=== PATIENT | male | born 1990 | race Caucasian/White ===

== ENCOUNTER 2024-12-20 09:54 | Inpatient (IN) | payer BC, SELFPAY ==
[2024-12-20] VITALS (35 sets, daily range): BP systolic 105–201; BP diastolic 53–127; PULSE 58–121; RESP 16–99; TEMP 36.1–37.2; O2SAT 93–100; BMI 34.0
--- NOTE | 2024-12-20 | XR_ITS ---
Ultrasound-guided needle placement right internal jugular vein Permanent tunneled dialysis catheter insertion, percutaneous Fluoroscopy AP chest, portable, single view. Date and time of procedure: December 20, 2024 1517 hours INDICATIONS: Renal failure, need for stat and long-term dialysis Informed consent provided Technique: A timeout was completed verifying correct patient, procedure, site, positioning, and special equipment if applicable. The patient was placed in a dependent position appropriate for dialysis catheter placement based on the vein to be cannulated. The patient'sright neck was prepped and draped in sterile fashion. Maximum Sterile Barrier Technique used including cap, mask, sterile gown, sterile gloves, and sterile full body drape. If ultrasound technique used: sterile gel and sterile probe covers. Hand Hygiene performed using proper scrub, soap and water, or alcohol-based hand rub. 1% lidocaine was used to anesthetize the surrounding skin area The [employer] portable ultrasound apparatus to confirm patency of the right internal jugular vein Utilizing ultrasonographic guidance successful 21-gauge needle puncture into the right internal jugular vein. Ultrasound images were recorded and stored. Vessel micropuncture was performed with 21-gauge needle. 0.18 wire guide is introduced into the vein. 0.18 wire is introduced into the vena cava under fluoroscopy. Subcutaneous tunnel formed in the upper chest. Permanent tunneled dialysis catheter placed in the subcutaneous tunnel. Dilators were introduced over the J-wire guide. Tunneled dialysis catheter is introduced through a dilator with venous sheath into the superior vena cava under fluoroscopic guidance. The catheter is sutured in place to the skin and a sterile dressing applied. Perfusion to the extremity distal to the point of catheter insertion is checked and found to be adequate Attending radiologist was present for the entire procedure Estimated blood loss2 cc. The patient tolerated the procedure well and there were no complications Impression: Successful ultrasound-guided needle placement right internal jugular vein Successful permanent tunneled dialysis catheter insertion, percutaneous Fluoroscopy 0.1 minute radiation dose 1.63 milligray 1 spot fluoroscopic chest film. AP chest performed at completion procedure demonstrates satisfactory position dialysis catheter. May use dialysis catheter.
--- NOTE | 2024-12-20 10:05 | XR_ITS ---
Examination: AP chest single view Technique one AP portable semiupright chest single view Date and time: December 20, 2024 1048 hours INDICATIONS: Stroke alert today with chest pain FINDINGS: No cardiac enlargement taking into account AP projection No aspiration pneumonia. No pulmonary edema. Osseous structures are intact IMPRESSION: No aspiration pneumonia
--- NOTE | 2024-12-20 10:05 | EKG_ITS ---
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
--- NOTE | 2024-12-20 10:05 | XR_ITS ---
Examination: CT brain head without contrast. 2-D sagittal coronal reconstructions Date and time of exam:December 20, 2024, 10:21 AM INDICATIONS: Stroke alert, onset focal neurologic deficit this morning including blurred vision CTDI: vol (mGy):58.8 DLP: (mGycm):1197 Technique: Multiple CT axial sections of the brain have been obtained, 5 mm slice thickness. Contrast has not been administered. 2-D sagittal, coronal reconstructions have been obtained Low dose protocols were performed. One or more of the following dose reduction techniques were used; automated exposure control, adjustment of the mA and/or KV according to patient size, use of iterative reconstruction technique. Findings: No significant ventricular enlargement. Intra-axial or extra-axial hemorrhage density is not seen. No mass effect or midline shift Basal cisterns are not remarkable. Fourth ventricle is midline. Cranial vault intact. Impression: Negative for acute hemorrhage, mass effect or midline shift
--- NOTE | 2024-12-20 10:05 | XR_ITS ---
Examination: CTA carotids with intravenous contrast CTA brain, head with intravenous contrast. 2-D sagittal, coronal reconstructions. 3-D reconstructions. Exam date and time: December 20, 2024, 10:25 AM INDICATIONS: Stroke alert today, onset focal neurologic deficit CTDI: vol (mGy) 98 DLP: (mGycm) 540 Technique: Multiple CTA axial brain, head carotid images post intravenous contrast injection 75 cc, [id number]. 2-D sagittal, coronal reconstructions. 3-D reconstructions, 3-D post processing including vascular maximum intensity projection images. Low dose protocols were performed. One or more of the following dose reduction techniques were used; automated exposure control, adjustment of the mA and/or KV according to patient size, use of iterative reconstruction technique. Findings: No significant common carotid carotid bifurcation or internal carotid artery stenoses Codominant vertebral arteries in the neck with no critical stenoses Intracranial vertebral arteries basilar artery and posterior cerebral branches fill with no large vessel occlusions Juxtasellar internal carotid arteries are intact M1 segments middle cerebral arteries middle cerebral artery trifurcation vessels anterior cerebral arteries fill with no large vessel occlusions IMPRESSION: No significant neck arterial stenoses No cerebral large vessel arterial occlusions
--- NOTE | 2024-12-20 10:07 | PD.EDNEURO ---
Neuro Symptoms Deficit-RME/HPI General Chief Complaint: Neuro Symptoms/Deficit Stated Complaint: BLURRED VISION, NAUSEA, CLAMMY, BLOOD PRESSURE Time Seen by Provider: 12/20/24 10:06 Arrival date/time: 12/20/24 09:54 Limitations: no limitations RME / HPI RME / HPI Narrative: 34 year old male with history of hypertension on Lisinopril presents to the ED for evaluation of elevated blood pressure, headache, feeling dizzy, clammy, and changes in vision today. Reportedly the change in vision began intermittently 2 weeks ago and described as not being able to focus . This morning stated he woke up at his usual state of health and drove himself to work. However, states at about 07:00 AM today, noted changes to his vision with associated headache, dizziness and feeling clammy which is new for him. States he took his blood pressure during that time that was 200s systolic. States he took Aleve and Ibuprofen this morning for the headache. Does not recall if he took his Lisinopril. While in the ED, denies feeling dizzy. No associated weakness, changes in speech, changes in gait, or unilateral weakness. Blood sugar in the ED is 122, blood pressure 201/127 left arm, 194/120 right arm. Related Data Home Medications ?Medication ?Instructions ?Recorded ?Confirmed albuterol sulfate 90 mcg/actuation 2 inh inhalation Q4H PRN shortness 12/20/24 12/20/24 aerosol inhaler of breath or wheezing prednisolone acetate 1 % eye 1 drp ophthalmic (eye) QID 12/20/24 12/20/24 drops,suspension Previous Rx's ?Medication ?Instructions ?Recorded aspirin 81 mg capsule 81 mg PO QDAY 30 days #30 caps 12/24/24 atorvastatin 20 mg tablet 40 mg (2 x 20 mg) PO HS 30 days 12/24/24 #60 tabs carvedilol 3.125 mg tablet 6.25 mg (2 x 3.125 mg) PO BIDWM 30 12/24/24 days #60 tabs clopidogrel 75 mg tablet 75 mg PO QDAY #30 tabs 12/24/24 nifedipine 60 mg tablet,extended 60 mg PO QDAY #30 tabs 12/25/24 release 24 hr valsartan 80 mg tablet 80 mg PO QDAY #30 tabs 12/25/24 Allergies Allergy/AdvReac Type Severity Reaction Status Date / Time Penicillins Allergy Severe Difficulty Verified 12/20/24 19:52 Breathing Review of Systems Review of Systems Systems Reviewed: All systems reviewed, normal except as documented Past Medical History Social History SMOKING STATUS: Never smoker ED Exam General Limitations: Present no limitations General appearance: Present alert and in no apparent distress Head Head exam: Present atraumatic, normocephalic and normal inspection Eye Eye exam: Present normal appearance, PERRL and EOMI ENT ENT exam: Present normal exam, normal oropharynx and mucous membranes moist Neck Neck exam: Present normal inspection, full ROM and trachea midline Chest Chest inspection: Present normal inspection and symmetric chest wall rise Respiratory Respiratory exam: Present normal lung sounds bilaterally; Absent respiratory distress, wheezes or stridor Cardiovascular Cardiovascular exam: Present normal rhythm, tachycardia and normal heart sounds Abdominal Exam Abdominal exam: Present soft; Absent distention, tenderness, guarding or rebound Extremities Exam Extremities exam: Present normal inspection and full ROM Back Exam Back exam: Present normal inspection and full ROM Neurological Exam Neurological exam: Present alert, oriented X3, normal gait and motor sensory deficit Expanded Neurological Exam Patient oriented to: Present person, place and time Speech: Present fluid speech Cerebellar function: Present normal gait Motor strength - LUE: 5/5 Motor strength - RUE: 5/5 Motor strength - LLE: 5/5 Motor strength - RLE: 5/5 Psychiatric Psychiatric exam: Present normal affect and normal mood Skin Skin exam: Present warm, dry, intact and normal color Course Course Course Narrative: Patient is a 34-year-old male is in the emergency department concerns for blurry vision, and last visual smith that started approximately 7:00 in the morning today. Vital signs and exam as listed. Stroke alert initiated given patient with difficulty with his vision that has been coming and going and worsening acutely today. Patient also feeling lightheaded. Patient taken to CT scan he is hemodynamically stable not in distress. 10:01 Patient evaluated in old triage. 10:07 Stroke alert activated. 10:40 I spoke with teleneurologist. No tenecteplase, believe that this is likely related to hypertensive emergency versus press syndrome. Recommends treating blood pressure when greater than 180, and admission for MRI. Of note patient also mentioned that he recently saw an attorney law clerk that diagnosed him with macular edema. 12:[address] Joe. Left a voicemail. 12:[address] with IR Dr. Bowen, reports he would be able to insert vascath today for emergent dialysis. Quality Measures Suspected type of Stroke: Acute Ischemic Tenecteplase given: > 60 min of arrival stroke Orders Category Date Time Status Admit to Inpatient Status Routine Admission 12/20/24 14:41 Active Patient Condition Routine Admission 12/20/24 14:41 Ordered Bedside Blood Glucose NOW Care 12/20/24 10:05 Completed Staffing Program Manager NOW Care 12/20/24 10:05 Completed Continuous Pulse Oximetry NOW Care 12/20/24 10:05 Completed Continuous Pulse Oximetry NOW Care 12/20/24 14:40 Completed Dialysis [Hemodialysis] Urgent Care 12/20/24 14:52 Active EKG (ED ONLY) *Do not use* NOW Care 12/20/24 10:05 Completed EKG (ED ONLY) *Do not use* NOW Care 12/20/24 12:12 Completed In and Out Catheter NEEDED Care 12/20/24 10:05 Completed Insert IV NOW Care 12/20/24 10:05 Completed NIH Stroke Scale now Care 12/20/24 10:05 Completed NPO NOW Care 12/20/24 10:05 Completed Notify provider NEEDED Care 12/20/24 14:41 Completed Nurse Swallow Screen x1 Care 12/20/24 10:05 Completed Sequential Compression Device QSHIFT Care 12/20/24 14:40 Completed Consult to Nephrology Stat Cons 12/20/24 14:10 Ordered Consult to Neurology / Tele-Neurology Routine Cons 12/20/24 10:[address] angio stroke protocol Stat Exams 12/20/24 10:[address] stroke protocol Stat Exams 12/20/24 10:05 Completed EKG (ED Only) Stat Exams 12/20/24 10:05 Draft EKG (ED Only) Stat Exams 12/20/24 12:12 Ordered IR dialysis catheter insertion Stat Exams 12/20/24 Completed US renal BI Stat Exams 12/20/24 12:46 Completed XR chest 1V portable Stat Exams 12/20/24 10:05 Completed BARRETT IFA Screen w/refl, IFA* Stat Lab 12/20/24 15:07 Completed ANCA Scrn,MPO&PR3,Rflx Titer* Stat Lab 12/20/24 15:07 Completed CBC AM DRAW Lab 12/21/24 04:17 Completed CBC AM DRAW Lab 12/22/24 04:51 Completed CBC AM DRAW Lab 12/23/24 04:23 Completed CBC Stat Lab 12/20/24 10:17 Completed CMP [Comprehensive Metabolic Panel] Stat Lab 12/20/24 12:33 Completed Comprehensive Metabolic Panel AM DRAW Lab 12/21/24 04:17 Completed Comprehensive Metabolic Panel AM DRAW Lab 12/22/24 04:51 Completed Comprehensive Metabolic Panel AM DRAW Lab 12/23/24 04:23 Completed Comprehensive Metabolic Panel Stat Lab 12/20/24 10:17 Completed Creatinine,Random Urine Stat Lab 12/20/24 23:27 Completed DNA (ds) Antibody* Stat Lab 12/20/24 15:07 Completed Drug Screen,Urine Stat Lab 12/20/24 13:44 Completed Glomerular Basemt Memb Ab IGG* Stat Lab 12/20/24 15:07 Completed Hepatitis Acute Panel Urgent Lab 12/20/24 15:07 Completed Hepatitis B Surface Ab Urgent Lab 12/20/24 15:07 Completed Lipid Panel AM DRAW Lab 12/21/24 04:17 Completed Magnesium AM DRAW Lab 12/21/24 04:17 Completed Magnesium AM DRAW Lab 12/22/24 04:51 Completed Magnesium AM DRAW Lab 12/23/24 04:23 Completed Magnesium Stat Lab 12/20/24 10:17 Completed Partial Thromboplastin Time Stat Lab 12/20/24 10:17 Completed Phosphorous AM DRAW Lab 12/21/24 04:17 Completed Phosphorous AM DRAW Lab 12/22/24 04:51 Completed Phosphorous AM DRAW Lab 12/23/24 04:23 Completed Prothrombin Time with INR Stat Lab 12/20/24 10:17 Completed SODIUM NA URINE [Sodium,Urine Random] Stat Lab 12/20/24 23:27 Completed Troponin I Stat Lab 12/20/24 10:17 Completed Urinalysis, C/S if Indicated Stat Lab 12/20/24 13:44 Completed ALBUTEROL RT 0.5ml [Proventil Rt 0.5ml] Med 12/20/24 11:45 Discontinued 5 mg INH X1 ONE ALBUTEROL RT 0.5ml [Proventil Rt 0.5ml] Med 12/20/24 13:30 Discontinued 5 mg INH X1 ONE Acetaminophen Tab [Tylenol Tab] Med 12/20/24 14:40 Discontinued 650 mg PO Q6H PRN Albumin Human 25% Ivpb [Albuminar-25 Ivpb] Med 12/20/24 14:52 Discontinued 25 gm in 100 ml IV PRN Calcium Chloride 10% Abboject 10 ml Med 12/20/24 11:45 Discontinued Dextrose 5%-Water [D5w] 100 ml IV X1 Calcium Gluc/Ns 1000MG Ivpb [Calcium Gluc/Ns 1000mg Med 12/20/24 12:00 Discontinued Ivpb] 1,000 mg in 50 ml IV X1 Calcium Gluconate 10% Inj Med 12/20/24 13:30 Discontinued 1 gm IV X1 ONE Dextrose 50% Syr [D50w Syringe Abboject] Med 12/20/24 11:45 Discontinued 50 ml IVP X1 ONE Dextrose 50% Syr [D50w Syringe Abboject] Med 12/20/24 13:30 Discontinued 50 ml IVP X1 ONE Insulin Regular Med 12/20/24 13:30 Discontinued 10 unit IV X1 ONE Insulin Regular Med 12/20/24 11:45 Discontinued 5 unit SC X1 ONE LORazepam [Ativan] Med 12/20/24 12:48 Discontinued 0.5 mg PO X1 ONE Labetalol IV [Trandate IV] Med 12/20/24 11:21 Discontinued 10 mg IVP X1 ONE Nicardipine/Ns 20Mg Ivpb [Cardene Ivpb] Med 12/20/24 12:41 Discontinued 20 mg in 200 ml IV 5 mg/hr Ondansetron Inj [Zofran Inj] Med 12/20/24 14:40 Discontinued 4 mg IVP Q6H PRN Ringers Lactated 1000 ml [Lactated Ringers] 1,000 ml Med 12/20/24 11:35 Discontinued IV 999 mls/hr Senna [Senokot] Med 12/20/24 14:40 Discontinued 1 tab PO QDAY PRN Sod Polystyrene Sulfon Susp [Kayexalate Susp] Med 12/20/24 11:45 Discontinued 15 gm PO X1 ONE Code Status Routine Oth 12/20/24 14:40 Completed Oxygen Delivery NOW RT 12/20/24 10:05 Completed Oxygen Delivery PRN RT 12/20/24 14:40 Completed Vital Signs Vital signs: Vital Signs Temperature 98 F 12/20/24 10:04 Pulse Rate 106 H 12/20/24 10:04 Respiratory Rate 18 12/20/24 10:04 Blood Pressure 201/127 H 12/20/24 10:04 Pulse Oximetry (%) 99 12/20/24 10:04 Oxygen Delivery Method Room Air 12/20/24 10:04 Pulse ox is 99% on room air which is adequate. Neuro Symptoms / Deficit MDM Narrative MDM Narrative:: IAngelita, am scribing for and in the presence of Dr. Plascencia. Patient is a 34-year-old male is in the emergency primary concerns for decreased vision, blurry vision that started approximately 7:00 in the morning today. Patient has a history of hypertension, is compliant with his medications. Given new changes to his vision, with loss of peripheral visual smith patient was activated as a stroke alert. Taken emergently to the CT scan. 10:01 Patient evaluated in old triage. 10:07 Stroke alert activated. 10:40 I spoke with teleneurologist, states patient is not a TNK candidate at this time. Reports symptoms are most likely hypertensive emergency or PRES syndrome. Advised treating blood pressure > 180 and admission for MRI and further evaluation/management. Patient with leukocytosis [place] 0.1, hemoglobin 11.7, no left shift. Patient with potassium 5.8 will treat in the emergency department. Also concerning as patient has a creatinine of 8.7, BUN of 81. GFR is 8. Troponin 0.032. EKG performed today at 1054 sinus rhythm, heart rate 99, normal intervals, T wave inversions in lead I to III, aVL, aVF, V4 V5 V6. Patient also with ST elevation in V1 V2. Given new findings on imaging concern patient has hypertensive emergency resulting in acute renal failure and neurodeficits. Patient presented with systolic blood pressure in the 200s, will decrease blood pressure by 20% with a systolic below of 160. Will consult nephrology, as patient will likely need dialysis 12:12p left HIPAA compliant message with on-call doll dresser Dr. Diaz 12:10 consulted on-call interventional radiologist Dr. Bowen, states can place dialysis catheter today. 12:[address] Diaz evaluated patient in ED. Recommends IR guided dialysis catheter placement and dialysis today. He agrees to consult and will continue to follow the patient. Ordered Nicardipine drip for blood pressure management. 1330: Notified by RN the repeat potassium is 6.3. Ordered medications for management of hyperkalemia, requested nursing staff to administer. 13:40: I reviewed all the results, analysis, and treatment plans. Patient is amenable to admission. Patient data External records reviewed:: None (No previous ED visits or hospitalist for review ) Clinical information provided by:: patient Social determinants that could affect healthcare access:: none Patient has the following chronic illnesses:: Hypertension How is presenting disease/condition affected by chronic disease/condition?: exacerbated by Evaluation data The following diagnostics were reviewed and interpreted by me:: lab results, radiology exam(s) and EKG tracing(s) Lab and/or radiology exams considered but not ordered:: None Interpretation Summary: Ordering Physician: Samira Plascencia MD Date of Service: 12/20/24 Procedure(s): CT stroke protocol Accession Number(s): [id number] cc: James Bowen MD; Samira Plascencia MD~ Examination: CT brain head without contrast. 2-D sagittal coronal reconstructions Date and time of exam:December 20, 2024, 10:21 AM INDICATIONS: Stroke alert, onset focal neurologic deficit this morning including blurred vision CTDI: vol (mGy):58.8 DLP: (mGycm):1197 Technique: Multiple CT axial sections of the brain have been obtained, 5 mm slice thickness. Contrast has not been administered. 2-D sagittal, coronal reconstructions have been obtained Low dose protocols were performed. One or more of the following dose reduction techniques were used; automated exposure control, adjustment of the mA and/or KV according to patient size, use of iterative reconstruction technique. Findings: No significant ventricular enlargement. Intra-axial or extra-axial hemorrhage density is not seen. No mass effect or midline shift Basal cisterns are not remarkable. Fourth ventricle is midline. Cranial vault intact. Impression: Negative for acute hemorrhage, mass effect or midline shift Dictated By: James Bowen MD Signed By: <Electronically signed by James Bowen MD in OV> 12/20/24 1024 Ordering Physician: Samira Plascencia MD Date of Service: 12/20/24 Procedure(s): CT angio stroke protocol Accession Number(s): [id number] cc: James Bowen MD; Samira Plascencia MD~ Examination: CTA carotids with intravenous contrast CTA brain, head with intravenous contrast. 2-D sagittal, coronal reconstructions. 3-D reconstructions. Exam date and time: December 20, 2024, 10:25 AM INDICATIONS: Stroke alert today, onset focal neurologic deficit CTDI: vol (mGy) 98 DLP: (mGycm) 540 Technique: Multiple CTA axial brain, head carotid images post intravenous contrast injection 75 cc, [id number]. 2-D sagittal, coronal reconstructions. 3-D reconstructions, 3-D post processing including vascular maximum intensity projection images. Low dose protocols were performed. One or more of the following dose reduction techniques were used; automated exposure control, adjustment of the mA and/or KV according to patient size, use of iterative reconstruction technique. Findings: No significant common carotid carotid bifurcation or internal carotid artery stenoses Codominant vertebral arteries in the neck with no critical stenoses Intracranial vertebral arteries basilar artery and posterior cerebral branches fill with no large vessel occlusions Juxtasellar internal carotid arteries are intact M1 segments middle cerebral arteries middle cerebral artery trifurcation vessels anterior cerebral arteries fill with no large vessel occlusions IMPRESSION: No significant neck arterial stenoses No cerebral large vessel arterial occlusions Dictated By: James Bowen MD Signed By: <Electronically signed by James Bowen MD in OV> 12/20/24 1052 Ordering Physician: Samira Plascencia MD Date of Service: 12/20/24 Procedure(s): XR chest 1V portable Accession Number(s): [id number] cc: James Bowen MD; Samira Plascencia MD~ Examination: AP chest single view Technique one AP portable semiupright chest single view Date and time: December 20, 2024 1048 hours INDICATIONS: Stroke alert today with chest pain FINDINGS: No cardiac enlargement taking into account AP projection No aspiration pneumonia. No pulmonary edema. Osseous structures are intact IMPRESSION: No aspiration pneumonia Dictated By: James Bowen MD Signed By: <Electronically signed by James Bowen MD in OV> 12/20/24 1101 Medications / Prescriptions Medications or Prescriptions considered but not ordered:: None Medication administrations:: Medication Administration History Discontinued Medications Acetaminophen (Acetaminophen 325 Mg Tablet) 650 mg PO Q6H PRN PRN Reason: Fever >100.1 or pain Stop: 01/19/25 14:39 Albuterol (Albuterol Rt 2.5 Mg/0.5 Ml Nebu) 5 mg INH X1 ONE Stop: 12/20/24 11:46 Last Admin: 12/20/24 12:18 Dose: 5 mg Documented By: KAVYA Albuterol (Albuterol Rt 2.5 Mg/0.5 Ml Nebu) 5 mg INH X1 ONE Stop: 12/20/24 13:31 Last Admin: 12/20/24 13:52 Dose: 5 mg Documented By: KAVYA Albuterol (Albuterol Rt 2.5 Mg/0.5 Ml Nebu) 5 mg INH X1 ONE Stop: 12/21/24 07:27 Last Admin: 12/21/24 07:44 Dose: 5 mg Documented By: GERARDO Albuterol (Albuterol Rt 2.5 Mg/0.5 Ml Nebu) Confirm Administered Dose 5 mg .ROUTE .STK-MED ONE Stop: 12/21/24 07:35 Last Admin: 12/21/24 07:44 Dose: 5 mg Documented By: GERARDO Amlodipine Besylate (Amlodipine Besylate 5 Mg Tablet) 5 mg PO QDAY [facility] Stop: 01/20/25 11:59 Amlodipine Besylate (Amlodipine Besylate 5 Mg Tablet) 10 mg PO QDAY [facility] Stop: 01/20/25 10:14 Last Admin: 12/21/24 10:44 Dose: 10 mg Documented By: RENZO Aspirin (Aspirin Ec 81 Mg Tabec) 81 mg PO DAILY [facility] Stop: 01/19/25 15:44 Last Admin: 12/22/24 12:01 Dose: 81 mg Documented By: Admin: 12/21/24 10:45 Dose: 81 mg Documented By: Admin: 12/20/24 18:28 Dose: 81 mg Documented By: ED Atorvastatin Calcium (Atorvastatin Calcium 20 Mg Tablet) 40 mg PO HS [facility] Stop: 01/21/25 20:59 Last Admin: 12/24/24 20:05 Dose: 40 mg Documented By: Admin: 12/23/24 20:22 Dose: Not Given Documented By: SS Non-Admin Reason: Patient Refused Admin: 12/22/24 20:14 Dose: 40 mg Documented By: SS Calcium Gluconate (Calcium Gluconate 10% Inj 1 Gm/10 Ml Vial) 1 gm IV X1 ONE Stop: 12/20/24 13:31 Last Admin: 12/20/24 14:25 Dose: 1 gm Documented By: ED Carvedilol (Carvedilol 3.125 Mg Tablet) 6.25 mg PO BIDWM SHEYLA Stop: 01/21/25 17:29 Last Admin: 12/25/24 08:18 Dose: 6.25 mg Documented By: Admin: 12/24/24 17:26 Dose: 6.25 mg Documented By: Admin: 12/24/24 08:31 Dose: 6.25 mg Documented By: Admin: 12/23/24 18:10 Dose: 6.25 mg Documented By: SC Admin: 12/23/24 13:12 Dose: 6.25 mg Documented By: ANN Comments: per MD ojeda to give late, med held in the am due to pt being NPO Admin: 12/22/24 17:30 Dose: 6.25 mg Documented By: Clopidogrel Bisulfate (Clopidogrel Bisulfate 75 Mg Tablet) 75 mg PO QDAY [facility] Stop: 01/21/25 13:44 Last Admin: 12/22/24 14:34 Dose: 75 mg Documented By: Dextrose (Dextrose 50%-Water Inj 50 Ml Syringe) 50 ml IVP X1 ONE Stop: 12/20/24 11:46 Last Admin: 12/20/24 12:13 Dose: 50 ml Documented By: ED Dextrose (Dextrose 50%-Water Inj 50 Ml Syringe) 50 ml IVP X1 ONE Stop: 12/20/24 13:31 Last Admin: 12/20/24 14:31 Dose: 50 ml Documented By: ED Fentanyl Citrate (Fentanyl Cit Inj 50 Mcg/Ml Amp 2ml) Confirm Administered Dose 200 mcg .ROUTE .STK-MED ONE Stop: 12/20/24 15:46 Last Admin: 12/20/24 16:34 Dose: Not Given Documented By: EC Non-Admin Reason: Duplicate Medication on eMAR Fentanyl Citrate (Fentanyl Cit Inj 50 Mcg/Ml Amp 2ml) 125 mcg IVP X1 ONE Stop: 12/20/24 15:55 Last Admin: 12/20/24 15:54 Dose: 125 mcg Documented By: EC Fentanyl Citrate (Fentanyl Cit Inj 50 Mcg/Ml Amp 2ml) Confirm Administered Dose 200 mcg .ROUTE .STK-MED ONE Stop: 12/24/24 09:34 Last Admin: 12/24/24 10:51 Dose: Not Given Documented By: DL Non-Admin Reason: Duplicate Medication on eMAR Fentanyl Citrate (Fentanyl Cit Inj 50 Mcg/Ml Amp 2ml) 100 mcg IVP X1 ONE Stop: 12/24/24 10:03 Last Admin: 12/24/24 10:04 Dose: 100 mcg Documented By: DL Heparin Sodium (Beef Lung) (Heparin Sod Lock Syr 100 Unit/Ml) Confirm Administered Dose 500 unit .ROUTE .STK-MED ONE Stop: 12/20/24 15:46 Last Admin: 12/20/24 16:34 Dose: Not Given Documented By: EC Non-Admin Reason: Duplicate Medication on eMAR Heparin Sodium (Beef Lung) (Heparin Sod Lock Syr 100 Unit/Ml) 500 unit IV X1 ONE Stop: 12/20/24 15:51 Last Admin: 12/20/24 15:50 Dose: 500 unit Documented By: EC Heparin Sodium (Porcine) (Heparin Sod Inj 1000 Unit/Ml Vial) Confirm Administered Dose 5,000 unit .ROUTE .STK-MED ONE Stop: 12/20/24 15:46 Last Admin: 12/20/24 16:34 Dose: Not Given Documented By: EC Non-Admin Reason: Duplicate Medication on eMAR Heparin Sodium (Porcine) (Heparin Sod Inj 1000 Unit/Ml Vial 10 Ml) 3,500 unit INDWELLCAT X1 ONE Stop: 12/20/24 16:10 Last Admin: 12/20/24 16:25 Dose: 3,500 unit Documented By: EC Co-signed By: EG Heparin Sodium (Porcine) (Heparin Sod Inj 1000 Unit/Ml Vial 10 Ml) 3,500 unit INDWELLCAT PRN PRN PRN Reason: DIALYSIS Stop: 01/03/25 21:39 Last Admin: 12/24/24 15:35 Dose: 3,500 unit Documented By: ED(2) Co-signed By: SONU Admin: 12/22/24 10:49 Dose: 3,500 unit Documented By: ED(2) Co-signed By: SONU(2) Admin: 12/20/24 23:16 Dose: 3,500 unit Documented By: SONU Co-signed By: SUZI Hydromorphone HCl (Hydromorphone Inj 2 Mg/Ml Vial) 1 mg IVP X1 ONE Stop: 12/24/24 11:09 Last Admin: 12/24/24 11:16 Dose: 1 mg Documented By: TIKI Hydroxyzine HCl (Hydroxyzine Hcl 25 Mg Tablet) 25 mg PO X1 ONE Stop: 12/21/24 17:01 Last Admin: 12/21/24 17:20 Dose: 25 mg Documented By: RENZO Hydroxyzine HCl (Hydroxyzine Hcl 25 Mg Tablet) 25 mg PO HS PRN PRN Reason: sleep Stop: 01/23/25 20:59 Lactated Ringer's (Lactated Ringers) 1,000 mls @ 999 mls/hr IV .Q1H1M ONE Stop: 12/20/24 12:35 Last Infusion: 12/20/24 12:48 Dose: Infused Documented By: Admin: 12/20/24 11:47 Dose: 999 mls/hr Documented By: ED Calcium Chloride 10 ml/ (Dextrose) 110 mls @ 110 mls/hr IV X1 ONE Stop: 12/20/24 12:44 Calcium Gluconate/Sodium Chloride (Calcium Gluc/Ns 1000mg Ivpb) 1,000 mg in 50 mls @ 50 mls/hr IV X1 ONE Stop: 12/20/24 12:59 Last Infusion: 12/20/24 13:36 Dose: Infused Documented By: Admin: 12/20/24 12:36 Dose: 50 mls/hr Documented By: ED Nicardipine/Sodium Chloride (Cardene Ivpb) 20 mg in 200 mls @ 50 mls/hr IV .Q4H PRN; Protocol PRN Reason: PER PROTOCOL Stop: 01/19/25 12:40 Last Titration: 12/20/24 16:17 Dose: 0 mg/hr, 0 mls/hr Documented By: Titration: 12/20/24 15:50 Dose: 3 mg/hr, 30 mls/hr Documented By: Titration: 12/20/24 15:27 Dose: 12.5 mg/hr, 125 mls/hr Documented By: Titration: 12/20/24 15:20 Dose: 12.5 mg/hr, 125 mls/hr Documented By: Titration: 12/20/24 15:15 Dose: 12.5 mg/hr, 125 mls/hr Documented By: Titration: 12/20/24 15:10 Dose: 12.5 mg/hr, 125 mls/hr Documented By: Titration: 12/20/24 15:05 Dose: 12.5 mg/hr, 125 mls/hr Documented By: Titration: 12/20/24 15:00 Dose: 12.5 mg/hr, 125 mls/hr Documented By: Titration: 12/20/24 14:55 Dose: 10 mg/hr, 100 mls/hr Documented By: Titration: 12/20/24 14:50 Dose: 7.5 mg/hr, 75 mls/hr Documented By: Admin: 12/20/24 14:45 Dose: 5 mg/hr, 50 mls/hr Documented By: ED Albumin Human (Albuminar-25 Ivpb) 25 gm in 100 mls @ 100 mls/min IV PRN PRN PRN Reason: DIALYSIS Magnesium Sulfate (Magnesium Sulfate Ivpb) 2 gm in 50 mls @ 25 mls/hr IV X1 ONE Stop: 12/22/24 20:35 Last Admin: 12/22/24 19:01 Dose: 25 mls/hr Documented By: JR Insulin Human Regular (Insulin Hum Regular 1 Unit/0.01 Ml (Per Unit)) 5 unit SC X1 ONE Stop: 12/20/24 11:46 Last Admin: 12/20/24 12:18 Dose: 5 unit Documented By: ED Co-signed By: ARF Insulin Human Regular (Insulin Hum Regular 1 Unit/0.01 Ml (Per Unit)) 10 unit IV X1 ONE Stop: 12/20/24 13:31 Last Admin: 12/20/24 14:36 Dose: 10 unit Documented By: ED Co-signed By: VL Labetalol HCl (Labetalol Inj 5 Mg/Ml Vial 20 Ml) 10 mg IVP X1 ONE Stop: 12/20/24 11:22 Last Admin: 12/20/24 11:46 Dose: 10 mg Documented By: ED Labetalol HCl (Labetalol Inj 5 Mg/Ml Vial 20 Ml) 10 mg IVP Q6HR PRN PRN Reason: SBP > 170 Stop: 01/19/25 17:05 Labetalol HCl (Labetalol Inj 5 Mg/Ml Vial 20 Ml) 10 mg IVP X1 PRN PRN Reason: SBP > 170, DBP >100 Stop: 01/20/25 06:24 Last Admin: 12/22/24 00:27 Dose: 10 mg Documented By: KEITH Labetalol HCl (Labetalol Inj 5 Mg/Ml Vial 20 Ml) 10 mg IVP X1 ONE Stop: 12/21/24 18:33 Last Admin: 12/21/24 18:49 Dose: 10 mg Documented By: RENZO Lidocaine HCl (Lidocaine Inj Pf 1% 30 Ml Vial) Confirm Administered Dose 30 ml .ROUTE .STK-MED ONE Stop: 12/20/24 15:46 Last Admin: 12/20/24 16:34 Dose: Not Given Documented By: EC Non-Admin Reason: Duplicate Medication on eMAR Lidocaine HCl (Lidocaine Inj Pf 1% 30 Ml Vial) 11 ml INFL X1 ONE Stop: 12/20/24 15:57 Last Admin: 12/20/24 15:56 Dose: 11 ml Documented By: EC Comments: PLACED ON [place] 11 MLS ADMINISTERED BY Lidocaine HCl (Lidocaine Inj Pf 1% 30 Ml Vial) Confirm Administered Dose 30 ml .ROUTE .STK-MED ONE Stop: 12/24/24 09:34 Last Admin: 12/24/24 10:51 Dose: Not Given Documented By: DL Non-Admin Reason: Duplicate Medication on eMAR Lorazepam (Lorazepam 0.5 Mg Tablet) 0.5 mg PO X1 ONE Stop: 12/20/24 12:49 Last Admin: 12/20/24 12:58 Dose: 0.5 mg Documented By: ED Lorazepam (Lorazepam 0.5 Mg Tablet) 1 mg PO X1 ONE Stop: 12/21/24 11:58 Last Admin: 12/21/24 12:05 Dose: 1 mg Documented By: KF Lorazepam (Lorazepam 0.5 Mg Tablet) 1 mg PO X1 ONE Stop: 12/21/24 15:13 Last Admin: 12/21/24 15:27 Dose: 1 mg Documented By: KF Lorazepam (Lorazepam 0.5 Mg Tablet) 1 mg PO X1 ONE Stop: 12/23/24 09:07 Last Admin: 12/23/24 09:41 Dose: 1 mg Documented By: SC Lorazepam (Lorazepam 0.5 Mg Tablet) 1 mg PO X1 PRN PRN Reason: ANXIETY Last Admin: 12/24/24 20:05 Dose: 1 mg Documented By: JOSHUA Melatonin (Melatonin 3 Mg Tablet) 6 mg PO HS [facility] Stop: 01/22/25 20:59 Last Admin: 12/23/24 20:37 Dose: Not Given Documented By: SS Non-Admin Reason: Patient Refused Metoprolol Succinate (Metoprolol Succinate Xl 25 Mg Tabcr) 25 mg PO QDAY [facility] Stop: 01/21/25 08:59 Metoprolol Succinate (Metoprolol Succinate Xl 25 Mg Tabcr) 25 mg PO QDAY [facility] Stop: 01/21/25 08:24 Last Admin: 12/22/24 12:13 Dose: 25 mg Documented By: Admin: 12/22/24 12:12 Dose: Not Given Documented By: Non-Admin Reason: Held for Dialysis Naloxone HCl (Naloxone Inj 0.4 Mg/Ml Vial) Confirm Administered Dose 0.4 mg .ROUTE .STK-MED ONE Stop: 12/20/24 15:45 Last Admin: 12/20/24 16:34 Dose: Not Given Documented By: EC Non-Admin Reason: Duplicate Medication on eMAR Naloxone HCl (Naloxone Inj 0.4 Mg/Ml Vial) Confirm Administered Dose 0.4 mg .ROUTE .STK-MED ONE Stop: 12/24/24 09:34 Last Admin: 12/24/24 10:51 Dose: Not Given Documented By: TYLER Non-Admin Reason: Duplicate Medication on eMAR Nifedipine (Nifedipine Xl 30 Mg Tabcr) 60 mg PO QDAY [facility] Stop: 01/22/25 15:29 Last Admin: 12/25/24 08:19 Dose: 60 mg Documented By: Admin: 12/24/24 08:32 Dose: 60 mg Documented By: Admin: 12/23/24 16:31 Dose: 60 mg Documented By: SC Ondansetron HCl (Ondansetron Inj 2 Mg/Ml Inj 2 Ml) 4 mg IVP Q6H PRN; Protocol PRN Reason: NAUSEA OR VOMITING Stop: 01/19/25 14:39 Last Admin: 12/20/24 16:18 Dose: 4 mg Documented By: EC Ondansetron HCl (Ondansetron Inj 2 Mg/Ml Inj 2 Ml) Confirm Administered Dose 4 mg .ROUTE .STK-MED ONE Stop: 12/20/24 15:45 Last Admin: 12/20/24 16:34 Dose: Not Given Documented By: EC Non-Admin Reason: Duplicate Medication on eMAR Ondansetron HCl (Ondansetron Inj 2 Mg/Ml Inj 2 Ml) Confirm Administered Dose 4 mg .ROUTE .STK-MED ONE Stop: 12/24/24 09:34 Last Admin: 12/24/24 10:51 Dose: Not Given Documented By: DL Non-Admin Reason: Duplicate Medication on eMAR Sennosides (Senna Tablet) 1 tab PO QDAY PRN; Protocol PRN Reason: constipation Stop: 01/19/25 14:39 Sodium Chloride (Sodium Chloride Rt La 0.9% 3 Ml Nebu) 3 ml INH PRN PRN PRN Reason: SOLN Stop: 01/20/25 07:23 Sodium Polystyrene Sulfonate (Sod Polystyrene Sulfon Susp 15 Gm/60 Ml Btl) 15 gm PO X1 ONE Stop: 12/20/24 11:46 Last Admin: 12/20/24 12:11 Dose: 15 gm Documented By: ED Tuberculin PPD (Tuberculin Ppd Inj 5 Unit/0.1 Ml Dose) 5 unit ID X1 ONE Stop: 12/21/24 07:35 Last Admin: 12/21/24 12:07 Dose: 5 unit Documented By: KF See above Consultations Consultation(s) initiated? (list below): Yes Consultation #1 (Physician, Specialty, Details): I spoke with teleneurologist as noted above. Time: 10:40 Consultation #2 (Physician, Specialty, Details): I spoke with doll dresser Dr. Diaz as noted above. Time: 12:38 Diagnosis Neuro Differential Diagnosis: subarachnoid hemorrhage, cerebrovascular accident, transient cerebral ischemia and other (hypertensive emergency, hypertensive urgency ) Most likely diagnosis given after review of the tests above:: Acute renal failure Hyperkalemia Hypertensive emergency Admission Indicated Admission indicated?: indicated Admission Request Was there a request for admission?: Yes Admission Attestation Admission request attestation: Discussed case with Hospitalist service regarding admission. Discussed patients ED course, exam findings, labs, and radiology results. The Hospitalist [agrees] to accept the patient for admission. Disposition Plan Disposition Plan: Admit Critical Care Time Critical Care Time Critical Care Time: Yes Total Critical Care Time (min.): 60 Attestation: The high probability of sudden, clinically significant deterioration in the patient's condition required the highest level of my preparedness to intervene urgently. The services I provided to this patient were to treat and/or prevent clinically significant deterioration. Services included the following: chart data review, reviewing nursing notes and/or old charts, documentation time, category consultant collaboration regarding findings and treatment options, medication orders and management, direct patient care, vital sign assessments and ordering, interpreting and reviewing diagnostic studies and lab tests. Aggregate critical care time includes only time during which I was engaged in work directly related to the patient's care, as described above, whether at bedside or elsewhere in the Emergency Department. It did not include time spent performing other reported procedures or the services of residents, students, nurses or physician assistants. Discharge Plan Plan Patient Disposition: Admit Acute Care w/in Hospital Patient condition on transfer: Stable Problem List Clinical Impression: Acute renal failure, Acute hyperkalemia, Hypertensive emergency Patient/Caregiver Discharge Instructions Other Activity Instructions:: You were found to have a stroke during this admission. Continue taking atorvastatin 40mg daily as management of stroke. You were started on aspirin 81mg daily and Plavix 75mg daily for stroke prevention. Resume these agents on Tuesday 12/26. You will need to take Plavix for 21 days (starting from 12/26). Continue aspirin and atorvastatin indefinitely. They were held for two days to decrease your risk of bleeding after your kidney biopsy. Continue taking lisinopril 20mg daily for blood pressure control. Repeat echocardiogram in another 3 months to assess for any acute changes in heart function. Continue taking Coreg and nifedipine as management for high blood pressure. Continue outpatient dialysis as setup by your doll dresser. Review biopsy results with doll dresser. Follow up with you PCP in 1-2 weeks. Follow up with neurologist in 1-2 weeks.
--- NOTE | 2024-12-20 10:46 | ESCONSULT_ITS ---
Tele Neuro Consultation Consultation Date 12/20/24 Most Recent Vital Signs Last Vital Signs Temp 98 F 12/20/24 10:04 Pulse 106 H 12/20/24 10:04 Resp 18 12/20/24 10:04 BP 201/127 H 12/20/24 10:04 Pulse Ox 99 12/20/24 10:04 O2 Del Method Room Air 12/20/24 10:04 Consultation Narrative [facility] Consult [facility] Patient Name:???Alex Rice Date of :???1990 Identification Number:??? Date of Service:???12/20/2024 10:14:45 Diagnosis:?H53.8 - Blurred Vision Impression: ?34 yo Male with history of hypertension, has been on blood pressure meds for 4 months. About 2 weeks ago, he began noting some blurring of his vision bilaterally, felt as if he has to strain to see things, it would fluctuate. Seemed a bit better this morning when he woke up but subsequently around 7 AM, felt the vision was more blurred. Apparently he saw an eye doctor today, dye boarding machine operator who felt he has bilateral macular edema of unclear etiology and is being referred to a retinal specialist. Patient came to the hospital for further evaluation. He has had no prominent severe headaches although has had some minor headaches on and off which he relates to eyestrain and seems to im prove when he closes his eyes. No other focal neurologic complaints. Apparently also felt a bit dizzy and clammy today. ?Examination is nonfocal, NIHSS = 0. Visual santamaria are intact although he states his central vision is blurry. CT head negative for acute abnormalities. No hemorrhage. CTA head and neck ordered by ER physician will be reviewed. ?Assessment: Blurred vision with hypertensive urgency. Suspect visual issue may be secondary to Bilateral macular edema as defined by his dye boarding machine operator and was referred to retinal specialist, Suspect likely secondary uncontrolled hypertension but all other causes for this to be determined by retinal specialist. Cannot completely exclude possibly of hypertensive encephalopathy or early PRES syndrome as cause for his visual complaints, although no findings on CT at this time. ? Stroke felt to be somewhat less likely. Our recommendations are outlined below. Recommendations: ? Stroke/Telemetry Floor ? Neuro Checks (Q4) ? Bedside Swallow Eval ? DVT Prophylaxis ? IV Fluids, Normal Saline ? Head of Bed 30 Degrees ? Euglycemia and Avoid Hyperthermia (PRN Acetaminophen) ? Initiate or continue Aspirin 81 MG daily ?Given concern for hypertensive urgency with visual changes, suggest treating SBP greater than 180 or DBP greater than 90 for now rather than full permissive hypertension. ?Consider MRI brain to rule out PRES syndrome changes, stroke or other findings. ?Ultimately, suggest blood pressure management and retinal specialist follow-up. Sign Out: ? Discussed with Emergency Department Provider Metrics: Last Known Well: 12/06/2024 12:00:00 Dispatch Time: 12/20/2024 10:14:45 Arrival Time: 12/20/2024 09:54:00 Initial Response Time: 12/20/2024 10:17:51Symptoms: Blurred vision. Initial patient interaction: 12/20/2024 10:20:12 NIHSS Assessment Completed: 12/20/2024 10:27:45Patient is not a candidate for Thrombolytic. Thrombolytic Medical Decision: 12/20/2024 10:27:45Patient was not deemed candidate for Thrombolytic because of following reasons: LKW outside 4.[address] Head: CT head unremarkable for acute infarction or hemorrhage per Radiology: Imaging reviewed personally, agree with radiology report. No bleed or acute abnormalities Primary Provider Notified of Diagnostic Impression and Management Plan on: 12/20/2024 10:43:47 History of Present Illness:Patient is a 34 year old Male. Patient was brought by private transportation with symptoms of Blurred vision. 34 yo Male with history of hypertension, has been on blood pressure meds for 4 months. About 2 weeks ago, he began noting some blurring of his vision bilaterally, felt as if he has to strain to see things, it would fluctuate. Seemed a bit better this morning when he woke up but subsequently around 7 AM, felt the vision was more blurred. Apparently he saw an eye doctor today, dye boarding machine operator who felt he has bilateral macular edema of unclear etiology and is being referred to a retinal specialist. Patient came to the hospital for further evaluation. He has had no prominent severe headaches although has had some minor headaches on and off which he relates to eyestrain and seems to improve when he closes his eyes. No other focal neurologic complaints. Apparently also felt a bit dizzy and clammy today. ? Past Medical History: ?Hypertension ?There is no history of Diabetes Mellitus ?There is no history of Hyperlipidemia ?There is no history of Coronary Artery Disease ?There is no history of Stroke ?There is no history of Seizures ?There is no history of Dementia/MCI Medications: No Anticoagulant use? No Antiplatelet use Reviewed EMR for current medications Other Medications Pertinent To Assessment Include: BP med Allergies:? Reviewed Description:?Penicillin Social History: Smoking: Former Alcohol Use: Former Drug Use: No Family History: There is no family history of premature cerebrovascular disease pertinent to this consultation ROS : 14 Points Review of Systems was performed and was negative except mentioned in HPI. Past Surgical History: There Is No Surgical History Contributory To Today?s Visit There Is Surgical History of:? None ? Examination: BP(199/136),?Pulse(87),?Blood Glucose(109) 1A: Level of Consciousness - Alert; keenly responsive?+ 0 1B: Ask Month and Age - Both Questions Right?+ 0 1C: Blink Eyes & Squeeze Hands - Performs Both Tasks?+ 0 2: Test Horizontal Extraocular Movements - Normal?+ 0 3: Test Visual Santamaria - No Visual Loss?+ 0 4: Test Facial Palsy (Use Grimace if Obtunded) - Normal symmetry?+ 0 5A: Test Left Arm Motor Drift - No Drift for 10 Seconds?+ 0 5B: Test Right Arm Motor Drift - No Drift for 10 Seconds?+ 0 6A: Test Left Leg Motor Drift - No Drift for 5 Seconds?+ 0 6B: Test Right Leg Motor Drift - No Drift for 5 Seconds?+ 0 7: Test Limb Ataxia (FNF/Heel-Naton) - No Ataxia?+ 0 8: Test Sensation - Normal; No sensory loss?+ 0 9: Test Language/Aphasia - Normal; No aphasia?+ 0 10: Test Dysarthria - Normal?+ 0 11: Test Extinction/Inattention - No abnormality?+ 0 NIHSS Score:?0 Pre-Morbid Modified [place] Scale: 0 Points = No symptoms at all Spoke with :?Dr Plascencia This consult was conducted in real time using interactive audio and video technology. Patient was informed of the technology being used for this visit and agreed to proceed. Patient located in hospital and provider located at home/office setting. Patient is being evaluated for possible acute neurologic impairment and high probability of imminent or life-threatening deterioration. I spent total of 36 minutes providing care to this patient, including time for face to face visit via telemedicine, review of medical records, imaging studies and discussion of findings with providers, the patient and/or family. Dr Emmett Galo [facility] For Inpatient follow-up with [facility] physician please call [facility] at . As we are not an outpatient service for any post hospital discharge needs please contact the hospital for assistance. If you have any questions for the [facility] physicians or need to reconsult for clinical or diagnostic changes please contact us via [facility] at . Signature :Agata Galo
--- NOTE | 2024-12-20 10:56 | PC.NURSE ---
Pt. here from home to room 2 stating today he is dizzy and can't see, pt. states his vision is blurry, pt. states he has been this way for 2 weeks. Pt. states he quit drinking heavy 1 or 2 months ago. Pt. states his urine pressure has slowed down and at night he feels like he has to urinate but there isn't any urine that comes out. 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 Pt. states his blood pressure has been high. Pt. states he hasn't had a BM in 3 days. Pt. spouse is bedside.
[2024-12-20 11:06] LABS: Basophils # (Auto) 0.1 Thou/mm3 (0.0-0.2); Basophils % (Auto) 1 % (0-2.5); Eosinophils # (Auto) 0.3 Thou/mm3 (0.0-0.5); Eosinophils % (Auto) 3 % (0-10); Hematocrit 35.1 % (41.0-53.0); Hemoglobin 11.7 g/dL (13.5-16.0); Immature Granulocytes Auto 0.04 Thou/mm3 (0.00-0.00); Lymphocytes # (Auto) 1.5 Thou/mm3 (1.0-4.8); Lymphocytes % (Auto) 14 % (10-50); Mean Corpuscular HGB Conc 33.3 g/dl (31.0-37.0); Mean Corpuscular Hemoglobin 31.0 pg (25.0-35.0); Mean Corpuscular Volume 93 fL (80-100); Monocytes # (Auto) 0.6 Thou/mm3 (0.0-0.8); Monocytes % (Auto) 6 % (0-12); Neutrophils # (Auto) 8.6 Thou/mm3 (1.8-7.7); Neutrophils % (Auto) 77 % (37-80); Nucleated Red Blood Cell # 0.00 Thou/mm3 (0.00-0.00); Nucleated Red Blood Cell % 0 /100 WBC (0); Platelet Count 249 Thou/mm3 (140-440); RDW Standard Deviation 41.9 fL (35.1-43.9); Red Blood Count 3.78 Miln/mm3 (4.50-5.90); White Blood Count 11.1 Thou/mm3 (3.8-10.6)
[2024-12-20 11:15] LABS: INR 1.0 (0.9-1.3); Partial Thromboplastin Time 27.7 Seconds (22.0-36.0); Prothrombin Time 10.6 Seconds (9.0-12.2)
[2024-12-20 11:20] LABS: Alanine Aminotransferase 14 U/L (10-49); Albumin, Serum 4.4 gm/dL (3.5-5.0); Albumin/Globulin Ratio 1.8 (1.2-2.2); Alkaline Phosphatase 56 U/L (46-116); Anion Gap 10 (7-16); Aspartate Amino Transferase 19 U/L (0-34); BUN/Creatinine Ratio 9 Ratio (12-20); Bilirubin,Total 0.3 mg/dL (0.3-1.2); Blood Urea Nitrogen 81 mg/dL (9-23); Calcium 9.4 mg/dL (8.3-10.6); Calcium (Corrected) 9.4 mg/dL (8.5-10.1); Carbon Dioxide 21.9 mMol/L (20.0-31.0); Chloride 105 mMol/L (98-107); Creatinine (Component) 8.7 mg/dL (0.6-1.3); Estimated Creatinine Clearance 17.4 mL/min (>60); Globulin 2.4 gm/dL (2.3-3.5); Glucose 99 mg/dL (74-106); Magnesium 2.2 mg/dL (1.6-2.6); Osmolality,Calculated 298 (275-295); Potassium 5.8 mMol/L (3.4-5.1); Sodium 137 mMol/L (136-145); Total Protein 6.8 gm/dL (5.7-8.2); Troponin I 0.032 ng/mL (0.0-0.045); eGFR 8 See Note
[2024-12-20] MEDS: LABETALOL INJ 5 MG/ML VIAL 20 ML 10 MG IVP (11:46)
[2024-12-20] MEDS: RINGERS LACTATED 1000 ML 1,000 ML 999 ML IV (11:47)
[2024-12-20] MEDS: SOD POLYSTYRENE SULFON SUSP 15 GM/60 ML BTL PO (12:11)
[2024-12-20] MEDS: DEXTROSE 50%-WATER INJ 50 ML SYRINGE IVP ×2 (12:13→14:31)
[2024-12-20] MEDS: INSULIN HUM REGULAR 1 UNIT/0.01 ML (PER UNIT) 5 UNIT SC (12:18)
[2024-12-20] MEDS: ALBUTEROL RT 2.5 MG/0.5 ML NEBU 5 MG INH ×2 (12:18→13:52)
--- NOTE | 2024-12-20 12:25 | PC.NURSE ---
Informed Dr. Plascencia pt.'s BP, Dr. Plascencia states she will put in orders.
--- NOTE | 2024-12-20 12:26 | PD.NEPHCONS ---
History of Present Illness Data of Consult Primary Care Provider: Patrick Lewis MD Consult Narrative History of present illness: 34 yr male PMH of htn on lisinopril and prior heavy alcohol use now sober, who presents to the ED with blurred vision, clamminess, slurred speech and nausea without vomiting. This started as blurred vision two weeks ago. Started experiencing symptoms on his way to work. Labs showed hyperkalemia 6.3, Cr 8.7, GFR 8. CT head and CTA neck were negative. Renal US was negative for hydronephrosis but noted a complex cystic structure on the left kidney with cortical thinning. BP 201/127, Nephrology is consulted for renal failure and hyperkalemia. cc:: cc: Review of Systems Review of Systems Systems Reviewed: All systems reviewed, normal except as documented Meds Home Medications and Allergies Home Medications ?Medication ?Instructions ?Recorded ?Confirmed ?Type albuterol sulfate 90 mcg/actuation 2 inh inhalation Q4H PRN shortness 12/20/24 12/20/24 History aerosol inhaler of breath or wheezing lisinopril 20 mg tablet 20 mg PO DAILY 12/20/24 12/20/24 History prednisolone acetate 1 % eye 1 drp ophthalmic (eye) QID 12/20/24 12/20/24 History drops,suspension Allergies Allergy/AdvReac Type Severity Reaction Status Date / Time Penicillins Allergy Severe Difficulty Verified 12/20/24 19:52 Breathing Exam Vital Signs Temp Pulse Resp BP Pulse Ox O2 Del Method 98 F 79 17 187/107 H 100 Aerosol Mask 12/20/24 10:04 12/20/24 12:20 12/20/24 12:20 12/20/24 12:20 12/20/24 12:20 12/20/24 12:20 Narrative Exam General: Patient laying in bed, conversational, anxious but making jokes HEENT: Mucosa moist, no oropharyngeal lesions. Cardiovascular: Tachycardic with repeating doublet pattern No murmur appreciated. Respiratory: Clear to auscultation bilaterally without wheezes or crackles. Abdomen: Soft, nontender, not distended, Skin: Dry, rosangela cheeks with telangiectasias, no petechiae or purpura noted. Musculoskeletal: No gross injuries. Able to move all 4 extremities. Neuro: Alert and oriented x3. No focal neuro deficits. Results Labs 12/20/24 10:17 12/20/24 19:01 Labs: Short CBC 12/20/24 Range/Units 10:17 WBC 11.1 H (3.8-10.6) Thou/mm3 Hgb 11.7 L (13.5-16.0) g/dL Hct 35.1 L (41.0-53.0) % Plt Count 249 (140-440) Thou/mm3 BMP 12/20/24 10:17 Sodium 137 Potassium 5.8 H Chloride 105 Carbon Dioxide 21.9 BUN 81 H Creatinine 8.7 H* Glucose 99 Calcium 9.4 Cardiac Enzymes 12/20/24 Range/Units 10:17 Troponin I 0.032 (0.0-0.045) ng/mL Liver Function 12/20/24 Range/Units 10:17 Total Bilirubin 0.3 (0.3-1.2) mg/dL AST 19 (0-34) U/L ALT 14 (10-49) U/L Alkaline Phosphatase 56 (46-116) U/L Albumin 4.4 (3.5-5.0) gm/dL Assessment & Plan Assessment and plan (1) Renal failure: Status: Acute Assessment and plan: ASHLEE vs CKD renal US is consistent with cortical thinning 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
--- NOTE | 2024-12-20 12:35 | PC.NURSE ---
Dr. Diaz bedside talking with pt. and pt.'s spouse. Dr. Plascencia bedside.
[2024-12-20] MEDS: CALCIUM GLUC/NS 1000MG IVPB 1,000 MG/50 ML BAG 50 MG IV (12:36)
--- NOTE | 2024-12-20 12:46 | XR_ITS ---
Examination: Retroperitoneal ultrasound, complete Technique: Multiple high resolution grayscale images of the retroperitoneum obtained, including kidneys and bladder. Exam date and time:December 20, 2024, 1307 hours Indications: Uncontrolled hypertension one year with vision loss, renal failure on laboratory examination 12/20/2024 FINDINGS: Right kidney 9.4 cm cortex 1.2 cm Left kidney 9.8 cm cortex 1.7 cm Complex cystic mass with vascularity in the mid left kidney 2.4 x 2.0 x 2.2 cm No hydronephrosis No bladder mass Bladder prevoid volume 102 cc unable to void Prostate 12 cc no prostate nodules IMPRESSION: Small kidneys with bilateral renal cortical thinning Recommend MRI kidneys follow-up to assess complex cystic mass in the mid left kidney 2.4 x 2.0 x 2.2 cm
[2024-12-20 13:20] LABS: Alanine Aminotransferase 12 U/L (10-49); Albumin, Serum 3.9 gm/dL (3.5-5.0); Albumin/Globulin Ratio 1.9 (1.2-2.2); Alkaline Phosphatase 51 U/L (46-116); Anion Gap 9 (7-16); Aspartate Amino Transferase 17 U/L (0-34); BUN/Creatinine Ratio 9 Ratio (12-20); Bilirubin,Total 0.3 mg/dL (0.3-1.2); Blood Urea Nitrogen 80 mg/dL (9-23); Calcium 9.0 mg/dL (8.3-10.6); Calcium (Corrected) 9.1 mg/dL (8.5-10.1); Carbon Dioxide 21.5 mMol/L (20.0-31.0); Chloride 105 mMol/L (98-107); Creatinine (Component) 8.5 mg/dL (0.6-1.3); Estimated Creatinine Clearance 17.8 mL/min (>60); Globulin 2.1 gm/dL (2.3-3.5); Glucose 150 mg/dL (74-106); Osmolality,Calculated 297 (275-295); Sodium 135 mMol/L (136-145); Total Protein 6.0 gm/dL (5.7-8.2); eGFR 8 See Note
--- NOTE | 2024-12-20 13:21 | PC.NURSE ---
US is bedside doing kidney US.
[2024-12-20 13:25] LABS: Potassium 6.3 mMol/L (3.4-5.1)
--- NOTE | 2024-12-20 13:28 | PC.NURSE ---
Pt.'s Mom is bedside.
[2024-12-20 13:49] LABS: Collection Type, Urine Clean Catch
[2024-12-20 14:22] LABS: Bacteria,Urine Rare; Bilirubin,Urine Negative (Negative); Blood,Urine Trace (Negative); Clarity,Urine Clear (Clear/Hazy); Color,Urine Lt-Yellow (Lt Yel-Yel); Culture Indicated,Urine Not Indicated; Glucose, Urine 1+ (Negative); Ketones,Urine Negative (Negative); Leukocyte Esterase,Urine Negative (Negative); Nitrite,Urine Negative (Negative); PH,Urine 6.5 (5.0-7.0); Protein,Urine 2+ (Neg - Trace); RBC,Urine 1 /hpf (0-3); Specific Gravity,Urine 1.016 (1.001-1.035); Squamous Epithelial Cell,Urine < 1 /hpf (0-5); Urobilinogen,Urine Negative mg/dL (0.0-1.0); WBC,Urine 1 /hpf (0-5)
[2024-12-20] MEDS: CALCIUM GLUCONATE 10% INJ 1 GM/10 ML VIAL IV (14:25)
[2024-12-20 14:27] LABS: Amphetamine/Methamp Scrn,U Negative (Negative); Barbiturate Screen,Urine Negative (Negative); Benzodiazepines Screen,Urine Negative (Negative); Benzoylecgonine Screen, Ur Negative (Negative); Fentanyl Screen,Urine Negative (Negative); Opiate Screen,Urine Negative (Negative); THC Screen,Urine Negative (Negative)
[2024-12-20] MEDS: INSULIN HUM REGULAR 1 UNIT/0.01 ML (PER UNIT) 10 UNIT IV (14:36)
[2024-12-20] MEDS: NICARDIPINE/NS 20MG IVPB 20 MG/200 ML BAG 50 MG IV (14:45)
--- NOTE | 2024-12-20 15:01 | PC.NURSE ---
Dr. Mai is bedside talking with pt. and pt.'s family.
--- NOTE | 2024-12-20 15:06 | XR_ITS ---
Examination: AP chest single view Technique one AP portable semiupright chest single view Date and time: December 20, 2024 1707 hrs., Comparison 12/20/2024 Indications: Post dialysis catheter placement Findings: Right internal jugular dialysis catheter tips right atrium satisfactory position Mild enlargement cardiac contour. No pneumothorax No pneumonia or pulmonary edema Impression: Right internal jugular dialysis catheter satisfactory position
--- NOTE | 2024-12-20 15:08 | ESHP_ITS ---
<Statement entered by Mirella Licona MD - 12/20/24 20:01> Patient is 34 yr male PMH of htn on lisinopril and prior heavy alcohol use now sober, who presents to the ED with blurred vision, clamminess, slurred speech and nausea without vomiting. This started as blurred vision two weeks ago. Started experiencing symptoms on his way to work. Labs showed hyperkalemia 6.3, Cr 8.7, GFR 8. CT head and CTA neck were negative. Renal US was negative for hydronephrosis but noted a complex cystic structure on the left kidney with cortical thinning. BP 201/127, HR 106. Patient required BP control with nicardipine drip prior to IR procedure. BP improved to 130/60 and now s/p right TDC. Nephrology Dr. Diaz was consulted. Patient was amdmitted for emergent HD. Urine Cr, Urine Na, ANCA, anti GBM, BARRETT, DS DNA ordered per nephrology recommendations. The patient's management plan was discussed with my attending physician Dr. Grady. Mirella Licona, PGY-2 Documentation for date of: 12/20/24 HPI History of Present Illness Chief complaint: Blurred vision, clammy, slurred speech History of present illness: This is a 34 yom with a h/o htn on lisinopril and prior heavy alcohol use now sober, who presents to the ED with blurred vision, clamminess, and nausea without vomiting. This started as blurred vision two weeks ago. He started taking an herbal supplement, bilberry lutein, to help with this symptom. He also noted decreased pressure behind his urine stream. He also reports increased constipation starting 2 days ago. This morning, he started feeling unwell, went to work, and started feeling very clammy and nauseated with slurring speech, which prompted him to go to the ED. He denies fever, headache, recent URI or GI illness, chest pain, shortness of breath, hemoptysis, abdominal pain, swelling, hematuria, increased foamy urine, or new skin rash. He also denies family history of autoimmune disorders and kidney disease. Apparently he saw an eye doctor today, glassware defect repairer who felt he has bilateral macular edema of unclear etiology and is being referred to a retinal specialist. Patient came to the hospital for further evaluation. PMHX: HTN PSHx: Hernia repair at 5yo Meds: Lisinopril, OTC ibuprofen, naproxen, both a couple times per week. Takes bilberry lutein supplement. 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 ED Course: -Patient presented with BP 201/127, repeat 194/120 HR 106, T 98, RR 18, O2 98% on RA. -Labs notable for WBC 11.1 Hgb 11.7, K 5.8, BUN 81 Cr 8.7, GFR 8. -Repeat labs: K 6.3, BUN 80, Cr 8.5, -CT head and CTA neck were negative. EKG notable LVH by voltage criteria and non specific ST changes. Renal US was negative for hydronephrosis but noted a complex cystic structure on the left kidney with cortical thinning. -Patient was given Labetolol 10 mg, SPS, albuterol, Insulin 5U then Insulin 10U after the repeat renal panel, Calcium gluconate 1g which was also repeated, and started on Nicardipine drip. BP improved to 126/75 and nicardipine drip was stopped. -Nephrology consulted, recommended emergent dialysis. -Patient was taken to IR for dialysis catheter placement. -Admitted for emergent dialysis, hyperkalemia, hypertensive emergency. Exam Vital Signs Temp Pulse Resp BP Pulse Ox O2 Del Method 98.9 F 104 H 17 191/111 H 99 Room Air 12/20/24 13:23 12/20/24 14:45 12/20/24 13:55 12/20/24 14:45 12/20/24 13:55 12/20/24 13:23 Narrative Exam General: Patient laying in bed, conversational, anxious but making jokes HEENT: Mucosa moist, no oropharyngeal lesions. Pupils are equal and reactive to light bilaterally, no scleral icterus or injection. No periorbital edema. Cardiovascular: Tachycardic with repeating doublet pattern No murmur appreciated. Respiratory: Clear to auscultation bilaterally without wheezes or crackles. Abdomen: Soft, nontender, not distended, Skin: Dry, rosangela cheeks with telangiectasias, no petechiae or purpura noted. Musculoskeletal: No gross injuries. Able to move all 4 extremities. Non edematous lower extremities. Neuro: Alert and oriented x3. No focal neuro deficits. Results: Labs 12/23/24 04:23 12/23/24 04:23 Labs: Short CBC 12/20/24 Range/Units 10:17 WBC 11.1 H (3.8-10.6) Thou/mm3 Hgb 11.7 L (13.5-16.0) g/dL Hct 35.1 L (41.0-53.0) % Plt Count 249 (140-440) Thou/mm3 BMP 12/20/24 12/20/24 10:17 12:33 Sodium 137 135 L Potassium 5.8 H 6.3 H* D Chloride 105 105 Carbon Dioxide 21.9 21.5 BUN 81 H 80 H Creatinine 8.7 H* 8.5 H* Glucose 99 150 H D Calcium 9.4 9.0 Cardiac Enzymes 12/20/24 Range/Units 10:17 Troponin I 0.032 (0.0-0.045) ng/mL Liver Function 12/20/24 12/20/24 Range/Units 10:17 12:33 Total Bilirubin 0.3 0.3 (0.3-1.2) mg/dL AST 19 17 (0-34) U/L ALT 14 12 (10-49) U/L Alkaline Phosphatase 56 51 (46-116) U/L Albumin 4.4 3.9 D (3.5-5.0) gm/dL Urine 12/20/24 Range/Units 13:44 Urine Color Lt-Yellow (Lt Yel-Yel) Urine Clarity Clear (Clear/Hazy) Urine pH 6.5 (5.0-7.0) Ur Specific Asher 1.016 (1.001-1.035) Urine Protein 2+ A (Neg - Trace) Urine Glucose (UA) 1+ A (Negative) Quality Measures Quality Measures stroke Suspected type of Stroke: Acute Ischemic Tenecteplase given: Reason(s) Tenecteplase not given: Uncontrolled BP not given Rehab services: PT evaluation ordered VTE Prophylaxis: mechanical Antithrombotic by day 2:: not indicated (describe) (Hypertensive emergency with ASHLEE and severe electrolyte abnormalities favored over acute stroke. ) Statin ordered: not ordered Anticoagulation ordered for A-fib or flutter (current or hx): not indicated Medications Home Medications and Allergies Home Medications ?Medication ?Instructions ?Recorded ?Confirmed ?Type albuterol sulfate 90 mcg/actuation 2 inh inhalation Q4 H PRN shortness 12/20/24 12/20/24 History aerosol inhaler of breath or wheezing lisinopril 20 mg tablet 20 mg PO DAILY 12/20/2411/30 History Held on 12/21/24. Instructions: Resume on 01/04/25. Hold until you see your PCP. Holding due to high potassium. prednisolone acetate 1 % eye 1 drp ophthalmic (eye) QI D 12/20/24 12/20/24 History drops,suspension Allergies Allergy/AdvReac Type Severity Reaction Status Date / Time Penicillins Allergy Severe Difficulty Verified 12/20/24 19:52 Breathing Visit Medications Acetaminophen (Acetaminophen 325 Mg Tablet) 650 mg PO Q6H PRN PRN Reason: Fever >100.1 or pain Stop: 01/19/25 14:39 Nicardipine/Sodium Chloride (Cardene Ivpb) 20 mg in 200 mls @ 50 mls/hr IV .Q4H PRN; Protocol PRN Reason: PER PROTOCOL Stop: 01/19/25 12:40 Last Titration: 12/20/24 14:55 Dose: 10 mg/hr, 100 mls/hr Albumin Human (Albuminar-25 Ivpb) 25 gm in 100 mls @ 100 mls/min IV PRN PRN PRN Reason: DIALYSIS Ondansetron HCl (Ondansetron Inj 2 Mg/Ml Inj 2 Ml) 4 mg IVP Q6H PRN; Protocol PRN Reason: NAUSEA OR VOMITING Stop: 01/19/25 14:39 Sennosides (Senna Tablet) 1 tab PO QDAY PRN; Protocol PRN Reason: constipation Stop: 01/19/25 14:39 Discontinued Medications Albuterol (Albuterol Rt 2.5 Mg/0.5 Ml Nebu) 5 mg INH X1 ONE Stop: 12/20/24 11:46 Last Admin: 12/20/24 12:18 Dose: 5 mg Albuterol (Albuterol Rt 2.5 Mg/0.5 Ml Nebu) 5 mg INH X1 ONE Stop: 12/20/24 13:31 Last Admin: 12/20/24 13:52 Dose: 5 mg Calcium Gluconate (Calcium Gluconate 10% Inj 1 Gm/10 Ml Vial) 1 gm IV X1 ONE Stop: 12/20/24 13:31 Last Admin: 12/20/24 14:25 Dose: 1 gm Dextrose (Dextrose 50%-Water Inj 50 Ml Syringe) 50 ml IVP X1 ONE Stop: 12/20/24 11:46 Last Admin: 12/20/24 12:13 Dose: 50 ml Dextrose (Dextrose 50%-Water Inj 50 Ml Syringe) 50 ml IVP X1 ONE Stop: 12/20/24 13:31 Last Admin: 12/20/24 14:31 Dose: 50 ml Lactated Ringer's (Lactated Ringers) 1,000 mls @ 999 mls/hr IV .Q1H1M ONE Stop: 12/20/24 12:35 Last Infusion: 12/20/24 12:48 Dose: Infused Calcium Chloride 10 ml/ (Dextrose) 110 mls @ 110 mls/hr IV X1 ONE Stop: 12/20/24 12:44 Calcium Gluconate/Sodium Chloride (Calcium Gluc/Ns 1000mg Ivpb) 1,000 mg in 50 mls @ 50 mls/hr IV X1 ONE Stop: 12/20/24 12:59 Last Infusion: 12/20/24 13:36 Dose: Infused Insulin Human Regular (Insulin Hum Regular 1 Unit/0.01 Ml (Per Unit)) 5 unit SC X1 ONE Stop: 12/20/24 11:46 Last Admin: 12/20/24 12:18 Dose: 5 unit Insulin Human Regular (Insulin Hum Regular 1 Unit/0.01 Ml (Per Unit)) 10 unit IV X1 ONE Stop: 12/20/24 13:31 Last Admin: 12/20/24 14:36 Dose: 10 unit Labetalol HCl (Labetalol Inj 5 Mg/Ml Vial 20 Ml) 10 mg IVP X1 ONE Stop: 12/20/24 11:22 Last Admin: 12/20/24 11:46 Dose: 10 mg Lorazepam (Lorazepam 0.5 Mg Tablet) 0.5 mg PO X1 ONE Stop: 12/20/24 12:49 Last Admin: 12/20/24 12:58 Dose: 0.5 mg Sodium Polystyrene Sulfonate (Sod Polystyrene Sulfon Susp 15 Gm/60 Ml Btl) 15 gm PO X1 ONE Stop: 12/20/24 11:46 Last Admin: 12/20/24 12:11 Dose: 15 gm Assessment & Plan Plan 34 yom with a h/o htn on lisinopril who presents to the ED with blurred vision, clamminess, and weakness, found to be hypertensive with systolics at the 200s, K of 6.3 and Cr of 8.5, admitted for emergent dialysis and hypertensive emergency. #Hypertensive Emergency #ASHLEE #Hyperkalemia #Uremia Patient's blood pressure has been persistently elevated, highest being 201/127, K of 6.3, BUN 80, Cr of 8.5, eGFR 8. Patient was given Labetolol 10 mg, SPS, albuterol, Insulin 5U then Insulin 10U after the repeat renal panel, Calcium gluconate 1g which was also repeated, and started on Nicardipine drip in the ED. Severe htn is the likely cause of the ASHLEE, but intrinsic renal cause is also possibility. Also considering the possibility of medication non-adherence with lisinopril as a possible cause of chronic deterioration. -Admit tele -IR for HD catheter placement -Emergent dialysis, appreciate nephrology recommendations. -Urine Cr, Urine Na, ANCA, anti GBM, BARRETT, DS DNA ordered per nephrology recommendations. BP goals, 160/100 for the next 6 hours. Gradual return to normal over the next 24-48 hours -PRN labetalol 10 mg for SBP > 170. #Blurred vision Patient reporting blurred vision for the last 2 weeks. Saw an glassware defect repairer today who noted macular edema and recommending retinal specialist. This may be from chronic hypertensive changes. Also considering PRES as possible differential. -Considering MRI brain during this admission. -F/U with ophthalmology outpatient if intracranial workup negative. 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 Possibly related to his hypertensive emergency above, but unclear to what degree. -Consider MRI of the kidneys once BP and ASHLEE are undercontrol. Health Maintenance: DVT prophylaxis: SCDs Diet: Renal Diet Rosas: No Lines: PIV, Dialysis catheter CODE STATUS: Full code Disposition: Pending dialysis, BP control, ASHLEE resolution Patient's plan and care discussed with my attending, Dr. Grady and my senior Dr. Licona. Kirill Mai DO PGY-1 ([facility] Resident) Attending Provider Attestation/Addendum >34-year-old male with history of hypertension who presented to the ER with blurry vision and nausea and vomiting. 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 In the ER, patient was noted to have acute kidney injury with associated hyperkalemia and uremia. As a result, nephrology was consulted and plan for emergent hemodialysis. In addition, patient also noted to have hypertensive emergency for which we will continue antihypertensive agents at this time. Will admit the patient to telemetry, plan for hemodialysis and MRI brain pending. I reviewed above note and agree with findings and plans. I have also personally examined the patient with medicine team and went over assessment and plan with medical team including internal affairs commander and resident physician.
--- NOTE | 2024-12-20 15:27 | PC.NURSE ---
Chica CABAN took pt. to specialist employee labor relations for dialysis catheter placement.
[2024-12-20] MEDS: HEPARIN SOD LOCK SYR 100 UNIT/ML 500 UNIT IV (15:50)
[2024-12-20] MEDS: fentaNYL CIT INJ 50 mCg/ML AMP 2ML 125 MCG IVP (15:54)
[2024-12-20] MEDS: LIDOCAINE INJ PF 1% 30 ML VIAL 11 ML INFL (15:56)
[2024-12-20] MEDS: ONDANSETRON INJ 2 MG/ML INJ 2 ML 4 MG IVP (16:18)
[2024-12-20] MEDS: HEPARIN SOD INJ 1000 UNIT/ML VIAL 10 ML 3500 UNIT INDWELLCAT ×2 (16:25→23:16)
--- NOTE | 2024-12-20 16:55 | PC.NURSE ---
Pt. back in room 2, pt. has dialysis cath to right upper chest. Dressing dry and intact. Pt. Mother and pt. spouse bedside.
--- NOTE | 2024-12-20 17:58 | PC.NURSE ---
Pt. refuses MRI at this time, he's eating dinner.
[2024-12-20] MEDS: ASPIRIN EC 81 MG TABEC PO (18:28)
[2024-12-20 19:29] LABS: Anion Gap 9 (7-16); BUN/Creatinine Ratio 10 Ratio (12-20); Blood Urea Nitrogen 80 mg/dL (9-23); Calcium 9.1 mg/dL (8.3-10.6); Carbon Dioxide 22.0 mMol/L (20.0-31.0); Chloride 106 mMol/L (98-107); Creatinine (Component) 8.3 mg/dL (0.6-1.3); Estimated Creatinine Clearance 18.2 mL/min (>60); Glucose 143 mg/dL (74-106); Osmolality,Calculated 299 (275-295); Potassium 5.7 mMol/L (3.4-5.1); Sodium 137 mMol/L (136-145); eGFR 8 See Note
--- NOTE | 2024-12-20 19:43 | ECHO_ITS ---
Transthoracic Echo Report Ht (in): 76 Wt (lb): 280 Exam Location: [facility]261 Status: Inpatient Meat Pickler: Mini Dahl Indications: Procedure Performed: BP: 0 / 94 HR: 111 MEASUREMENTS (Male / Female) Normal Values 2D ECHO LV Diastolic Diameter PLAX 5.7 cm 4.2 - 5.9 / 3.9 - 5.3 cm IVS Diastolic Thickness 1.2 cm 0.6 - 1.0 / 0.6 - 0.9 cm LVPW Diastolic Thickness 1.4 cm 0.6 - 1.0 / 0.6 - 0.9 cm LV Relative Wall Thickness 0.5 LVOT Diameter 2.2 cm LA Volume Index 21.2 cm?/m? 16 - 28 cm?/m? Ascending Aorta Diameter 3.3 cm M-MODE AV Cusp Separation MM 1.6 cm DOPPLER AV Peak Velocity 131.0 cm/s AV Peak Gradient 6.9 mmHg AV Mean Gradient 4.0 mmHg AV Velocity Time Integral 21.0 cm LVOT Peak Velocity 97.5 cm/s LVOT Peak Gradient 3.8 mmHg LVOT Velocity Time Integral 17.0 cm LVOT Cardiac Index 2711.9 cm?/min?m? AV Area Cont Eq vti 3.1 cm? AV Area Cont Eq pk 2.8 cm? MV Area PHT 8.8 cm? Mitral E Point Velocity 59.2 cm/s Mitral A Point Velocity 84.4 cm/s Mitral E to A Ratio 0.7 LV E' Lateral Velocity 5.9 cm/s Mitral E to LV E' Lateral Ratio 10.1 LV E' Septal Velocity 9.8 cm/s Mitral E to LV E' Septal Ratio 6.0 TR Peak Velocity 219.0 cm/s TR Peak Gradient 19.2 mmHg PV Peak Velocity 111.0 cm/s PV Peak Gradient 4.9 mmHg FINDINGS Left Ventricle Normal left ventricular size, wall thickness, systolic function . There is grade I diastolic dysfunction of the left ventricle (impaired relaxation pattern). Hypokinetic mid-inferior wall motion. The ejection fraction is visually estimated at 50 %. Right Ventricle The right ventricle is normal in size and systolic function. Left Atrium The left atrial cavity size is mildly increased. Right Atrium The right atrium is normal by two-dimensional imaging, color flow and Doppler imaging with no structural abnormalities, no thrombus formation present. Atrial Septum The interatrial septum appears normal with no evidence of a shunt. No [id number] shunt demonstrated by agitated saline injection. Aorta The aorta is normal by two-dimensional, color flow and Doppler interrogation. Mitral Valve The mitral valve is normal by two-dimensional, color flow and Doppler interrogation.trace mitral regurgitation. Aortic Valve The aortic valve is trileaflet and normal by two-dimensional, color flow and Doppler interrogation. There is no significant aortic valve regurgitation. Tricuspid Valve The tricuspid valve is normal by two-dimensional, color flow and Doppler interrogation.there is trace tricuspid valve regurgitation. Pulmonic Valve The pulmonic valve is not well visualized. There is no significant pulmonic valve regurgitation. Vessels The pulmonary artery appears normal. The inferior vena cava pulmonary and hepatic veins appear normal. Pericardium There is a tiny, hemodynamically insignificant pericardial effusion. CONCLUSIONS Indication: slurred speech, CVA workup Bubble study negative for PFO and ASD. Consider DEANA if high index of clinical suspicion to rule out any LA or ANGELO thrombus. Normal left ventricular size and function. Estimated EF is 55 to 60%. Normal diastolic function Normal Right ventricular size and function. Normal RVSP Mildly dilated LA. Trace mitral and trace tricuspid regurgitation noted. Trace pericardial effusion without tamponade Brice Humphrey (Electronically Signed) Final Date: 21 December 2024 19:57
--- NOTE | 2024-12-20 21:00 | PC.NURSE ---
Svetlana Muñoz() briana# [phone].
--- NOTE | 2024-12-20 22:53 | PC.NURSE ---
TX TERMINATED 20 MIKN EARLY D/T INCREASED HOSPITAL UNIT COORDINATOR THAT COULD NOT BE RESOLVED DESPITE MULTIPLE INTERVENTIONS. PT REAMANED AAOX3 AND ASYMPTOMATIC. ALL BLOOD RETURNED.
[2024-12-20 23:51] LABS: Creatinine,Random Urine 68 mg/dL (30-125); Sodium,Urine Random 55.7 mMol/L (20.0-110.0)
[2024-12-21] VITALS (29 sets, daily range): BP systolic 126–193; BP diastolic 68–116; PULSE 56–113; RESP 12–100; TEMP 36.3–37.4; O2SAT 97–100; BMI 33.5
--- NOTE | 2024-12-21 | XR_ITS ---
Examination: MRI brain without intravenous contrast. Date and time of exam: December 21, 2024 1555 hours INDICATIONS: Hypertensive emergency today with headache blurred vision slurred speech and nausea and vomiting Technique: Multiple axial and sagittal images of the brain obtained. Siemens high-resolution 1.5 Shivani short bore scanners utilized. Sagittal sections, T1-weighted, TR 500, TE 14, are performed. Axial sections proton-density and T2-weighted have been obtained. Inversion recovery axial images, TR 9, 260, TE 111, TI 2500. Diffusion weighted images, axial sections, TR 4800, TE 128, B value 1000 Axial sections, ADC map, TR 4800, TE 128 Findings: Enlargement of the sella turcica is not present. The optic chiasm and infundibular are not remarkable. Prepontine and interpeduncular cisterns are not enlarged. There is no localized enlargement of the medulla or ariel. Fourth ventricle and cerebellar tonsils appear normal in position. No subacute area of hemorrhage density is seen. Mass in the cerebellopontine angle region is not evident. Globes symmetrical. Orbital musculature including medial lateral rectus muscles do not exhibit abnormality. Diffusion-weighted images demonstrate 3 mm focus restricted diffusion left basal ganglia diffusion image 13. Increased white matter signal evident scattered punctate foci increased signal in the left frontal white matter and left basal ganglia in the same location as well as right parietal white matter image 18 Mass effect upon the ventricular system is not identified. Impression: 3 mm focus restricted diffusion left basal ganglia However scattered punctate foci increased signal in the white matter as above, demyelinating disease included in the differential Recommend neurology consultation and correlation with clinical findings specifically as to the etiology of the 3 mm focus restricted diffusion left basal ganglia
--- NOTE | 2024-12-21 01:51 | PC.NURSE ---
O2sat goes down to 88% or 84% on and off then back up to 96% on room air, pt asleep- Applied O2 inh on at 2L/min/nc.
[2024-12-21 05:17] LABS: Basophils # (Auto) 0.0 Thou/mm3 (0.0-0.2); Basophils % (Auto) 0 % (0-2.5); Eosinophils # (Auto) 0.2 Thou/mm3 (0.0-0.5); Eosinophils % (Auto) 2 % (0-10); Hematocrit 32.5 % (41.0-53.0); Hemoglobin 10.8 g/dL (13.5-16.0); Immature Granulocytes Auto 0.03 Thou/mm3 (0.00-0.00); Lymphocytes # (Auto) 1.5 Thou/mm3 (1.0-4.8); Lymphocytes % (Auto) 15 % (10-50); Mean Corpuscular HGB Conc 33.2 g/dl (31.0-37.0); Mean Corpuscular Hemoglobin 30.8 pg (25.0-35.0); Mean Corpuscular Volume 93 fL (80-100); Monocytes # (Auto) 1.0 Thou/mm3 (0.0-0.8); Monocytes % (Auto) 10 % (0-12); Neutrophils # (Auto) 7.5 Thou/mm3 (1.8-7.7); Neutrophils % (Auto) 73 % (37-80); Nucleated Red Blood Cell # 0.00 Thou/mm3 (0.00-0.00); Nucleated Red Blood Cell % 0 /100 WBC (0); Platelet Count 215 Thou/mm3 (140-440); RDW Standard Deviation 42.5 fL (35.1-43.9); Red Blood Count 3.51 Miln/mm3 (4.50-5.90); White Blood Count 10.2 Thou/mm3 (3.8-10.6)
[2024-12-21 06:07] LABS: Alanine Aminotransferase 11 U/L (10-49); Albumin, Serum 3.9 gm/dL (3.5-5.0); Albumin/Globulin Ratio 2.1 (1.2-2.2); Alkaline Phosphatase 47 U/L (46-116); Anion Gap 8 (7-16); Aspartate Amino Transferase 12 U/L (0-34); BUN/Creatinine Ratio 7 Ratio (12-20); Bilirubin,Total 0.4 mg/dL (0.3-1.2); Blood Urea Nitrogen 53 mg/dL (9-23); Calcium 9.2 mg/dL (8.3-10.6); Calcium (Corrected) 9.3 mg/dL (8.5-10.1); Carbon Dioxide 22.9 mMol/L (20.0-31.0); Cardiac Risk Estimate 4.7 RATIO (4.0-6.7); Chloride 108 mMol/L (98-107); Cholesterol 156 mg/dL (132-200); Creatinine (Component) 7.5 mg/dL (0.6-1.3); Estimated Creatinine Clearance 20.0 mL/min (>60); Globulin 1.9 gm/dL (2.3-3.5); Glucose 88 mg/dL (74-106); HDL Cholesterol 33 mg/dL (40-60); LDL Cholesterol,Calculated 93 mg/dL (0-130); Magnesium 1.8 mg/dL (1.6-2.6); Osmolality,Calculated 290 (275-295); Phosphorous 6.5 mg/dL (2.4-5.1); Potassium 5.4 mMol/L (3.4-5.1); Sodium 139 mMol/L (136-145); Total Protein 5.8 gm/dL (5.7-8.2); Triglycerides 149 mg/dL (30-150); eGFR 9 See Note
--- NOTE | 2024-12-21 07:25 | PC.NURSE ---
[employer] librarian aware night RN handed off that pt. dialysis catheter clotted during dialysis last night and needs additive during dialysis per report. Yusra university librarian already aware.
[2024-12-21] MEDS: ALBUTEROL RT 2.5 MG/0.5 ML NEBU 5 MG INH (07:44)
[2024-12-21] MEDS: ALBUTEROL RT 2.5 MG/0.5 ML NEBU 5 MG (07:44)
--- NOTE | 2024-12-21 08:46 | PC.SS ---
SS follow up note; SS was informed by Team A that patient will be a new Dialysis patient and will need to be established. SS sent clinicals to ALICIA Dempsey to get patient established.
--- NOTE | 2024-12-21 08:57 | PC.SS ---
Patient Alex Srivastava is a 34 year old male admitted for Hyperkalemia, Stroke Workup. SS made contact with patient to verify demographic information and discuss discharge plan. Patient reports he lives at home with his , Svetlana Jimenez who he reports is his surrogate decision maker, [phone]. Patient reports he is able to complete all ADL's independently and does not utilize any source of DME to assist with ambulation. [facility]'s [facility] of pharmacy [facility] and PCP is Dr. Patrick Lewis. Patient is pending a chair time at the time, patient will discharge home when medically cleared. Discharge plan: Home Next of kin: , Svetlana Jimenez [phone].
--- NOTE | 2024-12-21 09:37 | ESPR_ITS ---
<Statement entered by Kayli Tinajero MD - 12/21/24 21:32> I discussed with and supervised the internist medical doctor md physician who took care of this patient. I personally saw and examined the patient and discussed the assessment and plan with the entire medicine team, including my attending Dr. Grady, I agree with most of the assessment and plan as documented below Kayli Tinajero M.D. PGY-3 Disclaimer: Despite multiple revisions, due to the dictation software being used, the document bellow may not be free of grammatical errors including phonetic/typographic errors. However, this does not deter from our commitment to providing health care in the patient's best interest in mind. Documentation for date of: 12/21/24 Subjective Subjective Interval history: Patient examined at bedside. NAOE. Received dialysis yesterday. Patient feeling fine this morning but not wanting to get MRI, stating that he'll freak out if he has to get shoved into a tube. Is willing to try if he gets something for anxiety. He does note producing a copius amount of urine this morning and while in dialysis. Additionally, he states he's had a long history of moderate anxiety, was no clonazepam but stopped taking it about 3 years ago. Is starting to see a new PCP due to insurance changes. He remained hypertensive overnight, ranging from 188/107 to 160/94. HR fluctuated 105 to 58 at various times overnight. BMP this morning notable for K of 5.4 down from 5.7, BUN 53 from 80, and Cr 7.5 from 8.3. Urine Cr and Na were both normal at 68 and 55 respectively. Given albuterol, consulted nephrology who agreed to repeat dialysis this morning. Still pursing stroke workup given his preceding symptoms of slurred speech and blurred vision combined with severe htn. Potential for TIA vs PRES. Started on amlodipine 10mg. Continue daily aspirin 81 mg. MRI, Lorazepam 0.5mg for the exam. 1mg now. Repeat BMP. Pending ANCA, anti GBM, BARRETT, DS DNA ordered per nephrology recommendations. Exam Vital Signs Temp Pulse Resp BP Pulse Ox O2 Del Method O2 Flow Rate 98.8 F 56 L 18 193/103 H 100 Room Air 2 12/21/24 07:37 12/21/24 09:30 12/21/24 07:44 12/21/24 09:30 12/21/24 07:44 12/21/24 07:10 12/20/24 16:20 Narrative Exam General: Patient somewhat large in stature, sitting up in bed, conversational, fairly anxious. HEENT: Mucosa moist, no oropharyngeal lesions. Pupils are equal and reactive to light bilaterally, no scleral icterus or injection. No periorbital edema. Cardiovascular: Tachycardic with regular rate. Respiratory: Clear to auscultation bilaterally without wheezes or crackles. Abdomen: Soft, nontender, not distended, Skin: Dry, rosangela cheeks with telangiectasias, no petechiae or purpura noted. Musculoskeletal: No gross injuries. Able to move all 4 extremities. Non edematous lower extremities. Neuro: Alert and oriented x3. No focal neuro deficits. Objective Labs 12/23/24 04:23 12/23/24 04:23 Labs: Laboratory Results - last 24 hr 12/20/24 12/20/24 12/20/24 10:17 12:33 13:44 WBC 11.1 H RBC 3.78 L Hgb 11.7 L Hct 35.1 L MCV 93 MCH 31.0 MCHC 33.3 RDW Std Deviation 41.9 Plt Count 249 Neut % (Auto) 77 Lymph % (Auto) 14 Laurens % (Auto) 6 Eos % (Auto) 3 Baso % (Auto) 1 Neut # (Auto) 8.6 H Lymph # (Auto) 1.5 [place] # (Auto) 0.6 Eos # (Auto) 0.3 Baso # (Auto) 0.1 Immature Gran # (Auto) 0.04 H Absolute Nucleated RBC 0.00 Immature Gran % 0 Nucleated RBC % 0 PT 10.6 INR 1.0 APTT 27.7 Sodium 137 135 L Potassium 5.8 H 6.3 H* D Chloride 105 105 Carbon Dioxide 21.9 21.5 Anion Gap 10 9 BUN 81 H 80 H Creatinine 8.7 H* 8.5 H* Estim Creat Clear Calc 17.4 L 17.8 L eGFR 8 L* 8 L* BUN/Creatinine Ratio 9 L 9 L Glucose 99 150 H D Calculated Osmolality 298 H 297 H Calcium 9.4 9.0 Corrected Calcium 9.4 9.1 Phosphorus Magnesium 2.2 Total Bilirubin 0.3 0.3 AST 19 17 ALT 14 12 Alkaline Phosphatase 56 51 Troponin I 0.032 Total Protein 6.8 6.0 Albumin 4.4 3.9 D Globulin 2.4 2.1 L Albumin/Globulin Ratio 1.8 1.9 Triglycerides Cholesterol LDL Cholesterol, Calc HDL Cholesterol Cholesterol/HDL Ratio Ur Collection Type Clean Catch Urine Color Lt-Yellow Urine Clarity Clear Urine pH 6.5 Ur Specific Ethel 1.016 Urine Protein 2+ A Urine Glucose (UA) 1+ A Urine Ketones Negative Urine Blood Trace Urine Nitrite Negative Urine Bilirubin Negative Urine Urobilinogen (Auto) Negative Ur Leukocyte Esterase Negative Urine RBC 1 Urine WBC 1 Ur Squamous Epith Cells < 1 Urine Bacteria Rare Ur Culture Indicated? Not Indicated Ur Random Creatinine Ur Random Sodium Urine Opiates Screen Negative Urine Fentanyl Screen Negative Ur Barbiturates Screen Negative U Amphetamin/Meth Scrn Negative U Benzodiazepines Scrn Negative U Cocaine Metab Screen Negative U Marijuana (THC) Screen Negative 12/20/24 12/20/24 12/21/24 19:01 23:27 04:17 WBC 10.2 RBC 3.51 L Hgb 10.8 L Hct 32.5 L MCV 93 MCH 30.8 MCHC 33.2 RDW Std Deviation 42.5 Plt Count 215 D Neut % (Auto) 73 Lymph % (Auto) 15 Laurens % (Auto) 10 Eos % (Auto) 2 Baso % (Auto) 0 Neut # (Auto) 7.5 Lymph # (Auto) 1.5 Laurens # (Auto) 1.0 H Eos # (Auto) 0.2 Baso # (Auto) 0.0 Immature Gran # (Auto) 0.03 H Absolute Nucleated RBC 0.00 Immature Gran % 0 Nucleated RBC % 0 PT INR APTT Sodium 137 139 Potassium 5.7 H D 5.4 H Chloride 106 108 H Carbon Dioxide 22.0 22.9 Anion Gap 9 8 BUN 80 H 53 H Creatinine 8.3 H* 7.5 H* D Estim Creat Clear Calc 18.2 L 20.0 L eGFR 8 L* 9 L* BUN/Creatinine Ratio 10 L 7 L Glucose 143 H 88 D Calculated Osmolality 299 H 290 Calcium 9.1 9.2 Corrected Calcium 9.3 Phosphorus 6.5 H Magnesium 1.8 Total Bilirubin 0.4 AST 12 ALT 11 Alkaline Phosphatase 47 Troponin I Total Protein 5.8 Albumin 3.9 Globulin 1.9 L Albumin/Globulin Ratio 2.1 Triglycerides 149 Cholesterol 156 LDL Cholesterol, Calc 93 HDL Cholesterol 33 L Cholesterol/HDL Ratio 4.7 Ur Collection Type Urine Color Urine Clarity Urine pH Ur Specific Ethel Urine Protein Urine Glucose (UA) Urine Ketones Urine Blood Urine Nitrite Urine Bilirubin Urine Urobilinogen (Auto) Ur Leukocyte Esterase Urine RBC Urine WBC Ur Squamous Epith Cells Urine Bacteria Ur Culture Indicated? Ur Random Creatinine 68 Ur Random Sodium 55.7 Urine Opiates Screen Urine Fentanyl Screen Ur Barbiturates Screen U Amphetamin/Meth Scrn U Benzodiazepines Scrn U Cocaine Metab Screen U Marijuana (THC) Screen Quality Measures Quality Measures stroke Suspected type of Stroke: Acute Ischemic Tenecteplase given: Reason(s) Tenecteplase not given: Uncontrolled BP not given Rehab services: PT evaluation ordered and Speech Language Pathology eval ordered VTE Prophylaxis: mechanical Antithrombotic by day 2:: not indicated (describe) Statin ordered: not ordered Anticoagulation ordered for A-fib or flutter (current or hx): not indicated Assessment & Plan Assessment Current Active Medications: Generic Name Dose Route Start Last Admin Trade Name Freq PRN Reason Stop Dose Admin Acetaminophen 650 mg 12/20/24 14:40 Acetaminophen 325 Mg Tablet PO 01/19/25 14:39 Q6H PRN Fever >100.1 or pain Amlodipine Besylate 5 mg 12/21/24 12:00 Amlodipine Besylate 5 Mg Tablet PO 01/20/25 11:59 QDAY SHEYLA Aspirin 81 mg 12/20/24 15:45 12/20/24 18:28 Aspirin Ec 81 Mg Tabec PO 01/19/25 15:44 81 mg DAILY SHEYLA Administration Heparin Sodium (Porcine) 3,500 unit 12/20/24 21:40 12/20/24 23:16 Heparin Sod Inj 1000 Unit/Ml Vial 10 Ml INDWELLCAT 01/03/25 21:39 3,500 unit PRN PRN Administration DIALYSIS Albumin Human 25 gm in 100 mls @ 100 mls/min 12/20/24 14:52 Albuminar-25 Ivpb IV PRN PRN DIALYSIS Labetalol HCl 10 mg 12/21/24 06:25 Labetalol Inj 5 Mg/Ml Vial 20 Ml IVP 01/20/25 06:24 X1 PRN SBP > 170, DBP >100 Ondansetron HCl 4 mg 12/20/24 14:40 12/20/24 16:18 Ondansetron Inj 2 Mg/Ml Inj 2 Ml IVP 01/19/25 14:39 4 mg Q6H PRN Administration NAUSEA OR VOMITING Protocol Sennosides 1 tab 12/20/24 14:40 Senna Tablet PO 01/19/25 14:39 QDAY PRN constipation Protocol Sodium Chloride 3 ml 12/21/24 07:24 Sodium Chloride Rt La 0.9% 3 Ml Nebu INH 01/20/25 07:23 PRN PRN SOLN Plan 34 yom with a h/o htn on lisinopril who presents to the ED with blurred vision, clamminess, and weakness, found to be hypertensive with systolics at the 200s, K of 6.3 and Cr of 8.5, admitted for emergent dialysis and hypertensive emergency. Recieved HD that same evening. Morning labs on 12/21 still showed elevated K, BUN, and Cr of 5.4, 53, and 7.3 respectively. Repeated dialysis this morning. #Hypertensive Emergency #ASHLEE #Hyperkalemia #Uremia Patient's blood pressure has been persistently elevated, highest being 201/127, K of 6.3, BUN 80, Cr of 8.5, eGFR 8. UA had 2+ protein, 1 RBC and 1 WBC. Renal US showed cortical thinning. Patient was given Labetolol 10 mg, SPS, albuterol, Insulin 5U then Insulin 10U after the repeat renal panel, Calcium gluconate 1g which was also repeated, and started on Nicardipine drip in the ED. Severe htn is the likely cause of the ASHLEE, but intrinsic renal cause is also possibility. Also considering the possibility of medication non-adherence with lisinopril as a possible cause of chronic deterioration. U Na and U Cr both wnl at 68 and 55 respectively. UA did not show significant protein or blood, making nephrotic and nephritic syndromes lower on the differential. Renal cortical thinning suggests a possible chronic process that may have decompensated today, possibly longstanding severe htn. Received dialysis on 12/20 and today, 12/21. -Repeat BMP -Appreciate nephrology recommendations. ANCA, anti GBM, BARRETT, DS DNA pending BP goals, 160/100 for the next 6 hours. Gradual return to normal over the next 24-48 hours -Amlodipine 10mg -PRN labetalol 10 mg for SBP > 170 and DBP >110 #Slurred speech #Blurred vision Patient reporting blurred vision for the last 2 weeks. Slurred speech the day of admission which resolved. Saw an hair tinter on 12/20 (day of admission) who noted macular edema and recommending retinal specialist. This may be from chronic hypertensive changes. Also considering PRES as possible differential especially for the transient slurred speech. -MRI Brain, lorazepam 0.5 mg for exam. -F/U with ophthalmology outpatient if intracranial workup negative. #Anxiety Longstanding history of moderate anxiety, had been on chlordiazepam for this in the past but has not used it in 3 years. Used to be followed by PCP for this at that time but is switching PCPs currently due to insurance change. It is possible that his untreated anxiety has elevated his BP to severe levels chronically and have contributed to his htn. -Lorazepam today, 1 mg. -Consider hydroxyzine PRN while hospitalized. 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 Possibly related to his hypertensive emergency above, but unclear to what degree. -Consider MRI of the kidneys once BP and ASHLEE are undercontrol. Health Maintenance: DVT prophylaxis: SCDs Diet: Renal Diet Rosas: No Lines: PIV, Dialysis catheter CODE STATUS: Full code Disposition: Pending dialysis, BP control, ASHLEE resolution Patient's plan and care discussed with my attending, Dr. Grady and my senior Dr. Licona. Kirill Mai, PGY-1 ([facility] Resident) Attending Provider Attestation/Addendum 34-year-old male with history of hypertension who presented to the ER with blurry vision and nausea and vomiting. 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 In the ER, patient underwent CT head and stroke alert was activated however teleneurology did not recommend tPA and recommended stroke workup. In addition, was noted to have acute kidney injury with associated hyperkalemia and uremia. As a result, nephrology was consulted and plan for emergent hemodialysis. In addition, patient also noted to have hypertensive emergency for which we will continue antihypertensive agents at this time. Will admit the patient to telemetry, plan for hemodialysis and MRI brain pending. I reviewed above note and agree with findings and plans. I have also personally examined the patient with medicine team and went over assessment and plan with medical team including internist medical doctor md and resident physician.
--- NOTE | 2024-12-21 09:46 | PC.SS ---
SS follow up note; SS was contacted by [facility] informing SS that they received clinicals provided and will work on authorization approval.
[2024-12-21] MEDS: ASPIRIN EC 81 MG TABEC PO (10:45)
[2024-12-21] MEDS: TUBERCULIN PPD INJ 5 UNIT/0.1 ML DOSE ID (12:07)
--- NOTE | 2024-12-21 13:39 | PC.PT ---
PT eval only. Patient is xI with bed mobility, transfers, and ambulation. Patient is safe to ambulate to the bathroom and in the halls with no AD and no staff. RN made aware.
[2024-12-21 15:02] LABS: Anion Gap 11 (7-16); BUN/Creatinine Ratio 6 Ratio (12-20); Blood Urea Nitrogen 33 mg/dL (9-23); Calcium 9.2 mg/dL (8.3-10.6); Carbon Dioxide 27.2 mMol/L (20.0-31.0); Chloride 101 mMol/L (98-107); Creatinine (Component) 5.8 mg/dL (0.6-1.3); Estimated Creatinine Clearance 25.9 mL/min (>60); Glucose 97 mg/dL (74-106); Osmolality,Calculated 284 (275-295); Potassium 4.4 mMol/L (3.4-5.1); Sodium 139 mMol/L (136-145); eGFR 12 See Note
[2024-12-21 15:46] LABS: Hepatitis A Antibody IgM Non Reactive (Non React); Hepatitis B Core Antibody IgM Non Reactive (Non React); Hepatitis B Surface Ab Reactive (Immune) (Immune); Hepatitis B Surface Antigen Non Reactive (Non React); Hepatitis C Antibody Non Reactive (Non React)
--- NOTE | 2024-12-21 18:29 | PC.NURSE ---
Dr. Tinajero aware pt BP 158/86 and no BP meds tonight. states I will talk to the team and we may add something.
[2024-12-21] MEDS: LABETALOL INJ 5 MG/ML VIAL 20 ML 10 MG IVP (18:49)
[2024-12-22] VITALS (28 sets, daily range): BP systolic 127–188; BP diastolic 69–118; PULSE 60–131; RESP 13–98; TEMP 35.9–36.8; O2SAT 92–99; BMI 33.7; BMI 33.8
[2024-12-22] MEDS: LABETALOL INJ 5 MG/ML VIAL 20 ML 10 MG IVP (00:27)
--- NOTE | 2024-12-22 01:02 | PC.NURSE ---
pt sleeping, SPO2 97% on room air, respiration unlabored. pt snores at times and SPO2 drops to low 80's. pt awaken easily to call of name, pt informed of prn O2 order, pt refused and stated he does not need oxygen. on continuos pulse ox. significant other Svetlana at bedside. call light within reach.
[2024-12-22 05:38] LABS: Basophils # (Auto) 0.1 Thou/mm3 (0.0-0.2); Basophils % (Auto) 1 % (0-2.5); Eosinophils # (Auto) 0.4 Thou/mm3 (0.0-0.5); Eosinophils % (Auto) 3 % (0-10); Hematocrit 32.3 % (41.0-53.0); Hemoglobin 10.6 g/dL (13.5-16.0); Immature Granulocytes Auto 0.03 Thou/mm3 (0.00-0.00); Lymphocytes # (Auto) 2.0 Thou/mm3 (1.0-4.8); Lymphocytes % (Auto) 18 % (10-50); Mean Corpuscular HGB Conc 32.8 g/dl (31.0-37.0); Mean Corpuscular Hemoglobin 31.3 pg (25.0-35.0); Mean Corpuscular Volume 95 fL (80-100); Monocytes # (Auto) 1.4 Thou/mm3 (0.0-0.8); Monocytes % (Auto) 12 % (0-12); Neutrophils # (Auto) 7.6 Thou/mm3 (1.8-7.7); Neutrophils % (Auto) 67 % (37-80); Nucleated Red Blood Cell # 0.00 Thou/mm3 (0.00-0.00); Nucleated Red Blood Cell % 0 /100 WBC (0); Platelet Count 180 Thou/mm3 (140-440); RDW Standard Deviation 43.1 fL (35.1-43.9); Red Blood Count 3.39 Miln/mm3 (4.50-5.90); White Blood Count 11.3 Thou/mm3 (3.8-10.6)
[2024-12-22 06:17] LABS: Alanine Aminotransferase 11 U/L (10-49); Albumin, Serum 3.9 gm/dL (3.5-5.0); Albumin/Globulin Ratio 2.0 (1.2-2.2); Alkaline Phosphatase 44 U/L (46-116); Anion Gap 13 (7-16); Aspartate Amino Transferase 17 U/L (0-34); BUN/Creatinine Ratio 5 Ratio (12-20); Bilirubin,Total 0.3 mg/dL (0.3-1.2); Blood Urea Nitrogen 36 mg/dL (9-23); Calcium 9.4 mg/dL (8.3-10.6); Calcium (Corrected) 9.5 mg/dL (8.5-10.1); Carbon Dioxide 23.4 mMol/L (20.0-31.0); Chloride 106 mMol/L (98-107); Creatinine (Component) 6.9 mg/dL (0.6-1.3); Estimated Creatinine Clearance 21.9 mL/min (>60); Globulin 2.0 gm/dL (2.3-3.5); Glucose 89 mg/dL (74-106); Magnesium 1.8 mg/dL (1.6-2.6); Osmolality,Calculated 290 (275-295); Phosphorous 5.9 mg/dL (2.4-5.1); Potassium 5.3 mMol/L (3.4-5.1); Sodium 142 mMol/L (136-145); Total Protein 5.9 gm/dL (5.7-8.2); eGFR 10 See Note
[2024-12-22] MEDS: HEPARIN SOD INJ 1000 UNIT/ML VIAL 10 ML 3500 UNIT INDWELLCAT (10:49)
--- NOTE | 2024-12-22 11:52 | ESCONSULT_ITS ---
HPI Data of Consult Requesting Physician: Cornelius Grady MD Admitting Provider: Cornelius Grady MD Attending Provider: Cornelius Grady MD Primary Care Provider: Patrick Leiws MD Consult Narrative Reason for consult: 3mm foci diffuse density left basal ganglia seen on MRI History of present illness: This is a 34 yom with a h/o htn on lisinopril and prior heavy alcohol use now sober, who presents to the ED with blurred vision, clamminess, and nausea without vomiting. This started as blurred vision two weeks ago. He started taking an herbal supplement, bilberry lutein, to help with this symptom. He also noted decreased pressure behind his urine stream. He also reports increased constipation starting 2 days ago. This morning, he started feeling unwell, went to work, and started feeling very clammy and nauseated with slurring speech, which prompted him to go to the ED. He denies fever, headache, recent URI or GI illness, chest pain, shortness of breath, hemoptysis, abdominal pain, swelling, hematuria, increased foamy urine, or new skin rash. He also denies family history of autoimmune disorders and kidney disease. Apparently he saw an eye doctor today, able bodied tankerman who felt he has bilateral macular edema of unclear etiology and is being referred to a retinal specialist. Patient came to the hospital for further evaluation. ED Course: Patient presented with BP 201/127, repeat 194/120 HR 106, T 98, RR 18, O2 98% on RA. Labs notable for WBC 11.1 Hgb 11.7, K 5.8, BUN 81 Cr 8.7, GFR 8. Repeat labs: K 6.3, BUN 80, Cr 8.5, CT head and CTA neck were negative. EKG notable LVH by voltage criteria and non specific ST changes. Renal US was negative for hydronephrosis but noted a complex cystic structure on the left kidney with cortical thinning. Patient was given Labetolol 10 mg, SPS, albuterol, Insulin 5U then Insulin 10U after the repeat renal panel, Calcium gluconate 1g which was also repeated, and started on Nicardipine drip. BP improved to 126/75 and nicardipine drip was stopped. Nephrology consulted, recommended emergent dialysis.Patient was taken to IR for dialysis catheter placement. Admitted for emergent dialysis, hyperkalemia, hypertensive emergency. PMHX: HTN PSHx: Hernia repair at 5yo Meds: Lisinopril, OTC ibuprofen, naproxen, both a couple times per week. Takes bilberry lutein supplement. 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 Denies smoking tobacco and recreational drug use. 12/22/2024: Patient was seen and examined at the bedside. Patient is admitted overnight for acute renal failure, hypertensive emergency and strokelike symptoms. 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 He also reported that he has been having blurred vision x 2 weeks ago which has subsided now. He went for checkup with able bodied tankerman where they found that he might have possible bilateral macular edema. Patient reported that he had blurred vision along with mild slurred speech and associated with nausea and abdominal pain without vomiting. Patient denied any chest pain, abdominal pain, nausea or vomiting during assessment. He is still making urine. Patient was started on urgent dialysis yesterday given his acute kidney failure and hyperkalemia. Right IJ catheter was placed. CT brain and head and neck CTA showed no acute changes. EKG showed sinus rhythm with QTc [address]-T changes. Echocardiogram showed EF 55 to 60%. Mildly dilated LA. Trace pericardial effusion without tamponade. Brain MRI showed nonspecific periventricular white matter changes consistent with high blood pressure and acute stroke in left basal ganglia. Family was informed regarding the imaging results. Recommended to continue aspirin 81 mg daily, Plavix 75 mg for 21 days and atorvastatin 40 mg at night. Patient was informed that he would need to continue aspirin and atorvastatin indefinitely. He will likely benefit with another repeat echo as an outpatient within 3 months. cc:: cc: Cornelius Grady MD Review of Systems Review of Systems Systems Reviewed: All systems reviewed, normal except as documented Past Medical History Social History SMOKING STATUS: Never smoker Exam Vital Signs Temp Pulse Resp BP Pulse Ox O2 Del Method O2 Flow Rate 97.8 F 112 H 17 151/86 H 97 Room Air 2 12/22/24 11:29 12/22/24 11:29 12/22/24 11:12/22/24 11:12/22/24 11:25 08:00 12/20/24 16:20 Narrative Exam GENERAL APPEARANCE: AxOx4, generally well-appearing male in no acute distress. Saturating well on room air. HEENT: NC, AT. MMM. EOMI, clear conjunctiva, oropharynx clear. Flushing around cheeks. NECK: Supple without lymphadenopathy. No stiffness or restricted ROM. HEART: Sinus tachycardia with regular rhythm, normal S1/S2, no m/r/g LUNGS: CTAB, moving air well. No crackles or wheezes are heard. ABDOMEN: Soft, nontender, nondistended with good bowel sounds heard. BACK: No CVAT, no obvious deformity. EXTREMITIES: Without cyanosis, clubbing or edema. NEUROLOGICAL: Grossly nonfocal. Alert and oriented, moving all 4 extremities. CN not formally tested but appear grossly intact. Observed to ambulate with normal gait. Skin: Warm and dry without any rash. Psych: Mildly anxious however appropriate mood and affect Results Labs 12/22/24 04:51 12/22/24 04:51 Labs: Short CBC 12/22/24 Range/Units 04:51 WBC 11.3 H (3.8-10.6) Thou/mm3 Hgb 10.6 L (13.5-16.0) g/dL Hct 32.3 L (41.0-53.0) % Plt Count 180 D (140-440) Thou/mm3 BMP 12/21/24 12/22/24 14:25 04:51 Sodium 139 142 Potassium 4.4 D 5.3 H D Chloride 101 106 Carbon Dioxide 27.2 23.4 BUN 33 H 36 H Creatinine 5.8 H* D 6.9 H* D Glucose 97 89 Calcium 9.2 9.4 Liver Function 12/22/24 Range/Units 04:51 Total Bilirubin 0.3 (0.3-1.2) mg/dL AST 17 (0-34) U/L ALT 11 (10-49) U/L Alkaline Phosphatase 44 L (46-116) U/L Albumin 3.9 (3.5-5.0) gm/dL Quality Measures Quality Measures stroke Suspected type of Stroke: Acute Ischemic Tenecteplase given: Reason(s) Tenecteplase not given: Uncontrolled BP not given Rehab services: PT evaluation ordered VTE Prophylaxis: pharmaceutical Antithrombotic by day 2:: not indicated (describe) Statin ordered: <75 y/o high intensity dose Anticoagulation ordered for A-fib or flutter (current or hx): not indicated Medications Home Medications and Allergies Home Medications ?Medication ?Instructions ?Recorded ?Confirmed ?Type albuterol sulfate 90 mcg/actuation 2 inh inhalation Q4 H PRN shortness 12/20/24 12/20/24 History aerosol inhaler of breath or wheezing lisinopril 20 mg tablet 20 mg PO DAILY 12/20/2411/30 History Held on 12/21/24. Instructions: Resume on 01/04/25. Hold until you see your PCP. Holding due to high potassium. prednisolone acetate 1 % eye 1 drp ophthalmic (eye) QI D 12/20/24 12/20/24 History drops,suspension Allergies Allergy/AdvReac Type Severity Reaction Status Date / Time Penicillins Allergy Severe Difficulty Verified 12/20/24 19:52 Breathing Visit Medications Acetaminophen (Acetaminophen 325 Mg Tablet) 650 mg PO Q6H PRN PRN Reason: Fever >100.1 or pain Stop: 01/19/25 14:39 Aspirin (Aspirin Ec 81 Mg Tabec) 81 mg PO DAILY SHEYLA Stop: 01/19/25 15:44 Last Admin: 12/21/24 10:45 Dose: 81 mg Heparin Sodium (Porcine) (Heparin Sod Inj 1000 Unit/Ml Vial 10 Ml) 3,500 unit INDWELLCAT PRN PRN PRN Reason: DIALYSIS Stop: 01/03/25 21:39 Last Admin: 12/22/24 10:49 Dose: 3,500 unit Albumin Human (Albuminar-25 Ivpb) 25 gm in 100 mls @ 100 mls/min IV PRN PRN PRN Reason: DIALYSIS Labetalol HCl (Labetalol Inj 5 Mg/Ml Vial 20 Ml) 10 mg IVP X1 PRN PRN Reason: SBP > 170, DBP >100 Stop: 01/20/25 06:24 Last Admin: 12/22/24 00:27 Dose: 10 mg Metoprolol Succinate (Metoprolol Succinate Xl 25 Mg Tabcr) 25 mg PO QDAY SHEYLA Stop: 01/21/25 08:24 Ondansetron HCl (Ondansetron Inj 2 Mg/Ml Inj 2 Ml) 4 mg IVP Q6H PRN; Protocol PRN Reason: NAUSEA OR VOMITING Stop: 01/19/25 14:39 Last Admin: 12/20/24 16:18 Dose: 4 mg Sennosides (Senna Tablet) 1 tab PO QDAY PRN; Protocol PRN Reason: constipation Stop: 01/19/25 14:39 Sodium Chloride (Sodium Chloride Rt La 0.9% 3 Ml Nebu) 3 ml INH PRN PRN PRN Reason: SOLN Stop: 01/20/25 07:23 Discontinued Medications Albuterol (Albuterol Rt 2.5 Mg/0.5 Ml Nebu) 5 mg INH X1 ONE Stop: 12/20/24 11:46 Last Admin: 12/20/24 12:18 Dose: 5 mg Albuterol (Albuterol Rt 2.5 Mg/0.5 Ml Nebu) 5 mg INH X1 ONE Stop: 12/20/24 13:31 Last Admin: 12/20/24 13:52 Dose: 5 mg Albuterol (Albuterol Rt 2.5 Mg/0.5 Ml Nebu) 5 mg INH X1 ONE Stop: 12/21/24 07:27 Last Admin: 12/21/24 07:44 Dose: 5 mg Amlodipine Besylate (Amlodipine Besylate 5 Mg Tablet) 5 mg PO QDAY [facility] Stop: 01/20/25 11:59 Amlodipine Besylate (Amlodipine Besylate 5 Mg Tablet) 10 mg PO QDAY [facility] Stop: 01/20/25 10:14 Last Admin: 12/21/24 10:44 Dose: 10 mg Calcium Gluconate (Calcium Gluconate 10% Inj 1 Gm/10 Ml Vial) 1 gm IV X1 ONE Stop: 12/20/24 13:31 Last Admin: 12/20/24 14:25 Dose: 1 gm Dextrose (Dextrose 50%-Water Inj 50 Ml Syringe) 50 ml IVP X1 ONE Stop: 12/20/24 11:46 Last Admin: 12/20/24 12:13 Dose: 50 ml Dextrose (Dextrose 50%-Water Inj 50 Ml Syringe) 50 ml IVP X1 ONE Stop: 12/20/24 13:31 Last Admin: 12/20/24 14:31 Dose: 50 ml Fentanyl Citrate (Fentanyl Cit Inj 50 Mcg/Ml Amp 2ml) 125 mcg IVP X1 ONE Stop: 12/20/24 15:55 Last Admin: 12/20/24 15:54 Dose: 125 mcg Heparin Sodium (Beef Lung) (Heparin Sod Lock Syr 100 Unit/Ml) 500 unit IV X1 ONE Stop: 12/20/24 15:51 Last Admin: 12/20/24 15:50 Dose: 500 unit Heparin Sodium (Porcine) (Heparin Sod Inj 1000 Unit/Ml Vial 10 Ml) 3,500 unit INDWELLCAT X1 ONE Stop: 12/20/24 16:10 Last Admin: 12/20/24 16:25 Dose: 3,500 unit Hydroxyzine HCl (Hydroxyzine Hcl 25 Mg Tablet) 25 mg PO X1 ONE Stop: 12/21/24 17:01 Last Admin: 12/21/24 17:20 Dose: 25 mg Lactated Ringer's (Lactated Ringers) 1,000 mls @ 999 mls/hr IV .Q1H1M ONE Stop: 12/20/24 12:35 Last Infusion: 12/20/24 12:48 Dose: Infused Calcium Chloride 10 ml/ (Dextrose) 110 mls @ 110 mls/hr IV X1 ONE Stop: 12/20/24 12:44 Calcium Gluconate/Sodium Chloride (Calcium Gluc/Ns 1000mg Ivpb) 1,000 mg in 50 mls @ 50 mls/hr IV X1 ONE Stop: 12/20/24 12:59 Last Infusion: 12/20/24 13:36 Dose: Infused Nicardipine/Sodium Chloride (Cardene Ivpb) 20 mg in 200 mls @ 50 mls/hr IV .Q4H PRN; Protocol PRN Reason: PER PROTOCOL Stop: 01/19/25 12:40 Last Titration: 12/20/24 16:17 Dose: 0 mg/hr, 0 mls/hr Insulin Human Regular (Insulin Hum Regular 1 Unit/0.01 Ml (Per Unit)) 5 unit SC X1 ONE Stop: 12/20/24 11:46 Last Admin: 12/20/24 12:18 Dose: 5 unit Insulin Human Regular (Insulin Hum Regular 1 Unit/0.01 Ml (Per Unit)) 10 unit IV X1 ONE Stop: 12/20/24 13:31 Last Admin: 12/20/24 14:36 Dose: 10 unit Labetalol HCl (Labetalol Inj 5 Mg/Ml Vial 20 Ml) 10 mg IVP X1 ONE Stop: 12/20/24 11:22 Last Admin: 12/20/24 11:46 Dose: 10 mg Labetalol HCl (Labetalol Inj 5 Mg/Ml Vial 20 Ml) 10 mg IVP Q6HR PRN PRN Reason: SBP > 170 Stop: 01/19/25 17:05 Labetalol HCl (Labetalol Inj 5 Mg/Ml Vial 20 Ml) 10 mg IVP X1 ONE Stop: 12/21/24 18:33 Last Admin: 12/21/24 18:49 Dose: 10 mg Lidocaine HCl (Lidocaine Inj Pf 1% 30 Ml Vial) 11 ml INFL X1 ONE Stop: 12/20/24 15:57 Last Admin: 12/20/24 15:56 Dose: 11 ml Lorazepam (Lorazepam 0.5 Mg Tablet) 0.5 mg PO X1 ONE Stop: 12/20/24 12:49 Last Admin: 12/20/24 12:58 Dose: 0.5 mg Lorazepam (Lorazepam 0.5 Mg Tablet) 1 mg PO X1 ONE Stop: 12/21/24 11:58 Last Admin: 12/21/24 12:05 Dose: 1 mg Lorazepam (Lorazepam 0.5 Mg Tablet) 1 mg PO X1 ONE Stop: 12/21/24 15:13 Last Admin: 12/21/24 15:27 Dose: 1 mg Metoprolol Succinate (Metoprolol Succinate Xl 25 Mg Tabcr) 25 mg PO QDAY SHEYLA Stop: 01/21/25 08:59 Sodium Polystyrene Sulfonate (Sod Polystyrene Sulfon Susp 15 Gm/60 Ml Btl) 15 gm PO X1 ONE Stop: 12/20/24 11:46 Last Admin: 12/20/24 12:11 Dose: 15 gm Tuberculin PPD (Tuberculin Ppd Inj 5 Unit/0.1 Ml Dose) 5 unit ID X1 ONE Stop: 12/21/24 07:35 Last Admin: 12/21/24 12:07 Dose: 5 unit Assessment & Plan Plan 34 yom with a h/o htn on lisinopril who presents to the ED with blurred vision, clamminess, and weakness, found to be hypertensive with systolics at the 200s, K of 6.3 and Cr of 8.5, admitted for emergent dialysis and hypertensive emergency. Recieved HD that same evening. Morning labs on 12/21 still showed elevated K, BUN, and Cr of 5.4, 53, and 7.3 respectively. Repeated dialysis this morning. #Acute stroke left basal ganglia #Nonspecific periventricular white matter changes #Blurred vision, resolved Patient reporting blurred vision for the last 2 weeks. Slurred speech the day of admission which resolved. Saw an able bodied tankerman on 12/20 (day of admission) who noted macular edema and recommending retinal specialist. This may be from chronic hypertensive changes. Also considering PRES as possible differential especially for the transient slurred speech. CT brain and head and neck CTA are negative for acute changes. Patient's symptoms have subsided in terms of blurred vision. No acute focal neurological deficits noted. Echocardiogram showed EF 55 to 60%. Mildly dilated LA. Trace pericardial effusion without tamponade. Brain MRI showed nonspecific periventricular white matter changes consistent with high blood pressure and acute stroke in left basal ganglia. Family was informed regarding the imaging results. Plan: Recommended to continue aspirin 81 mg daily, Plavix 75 mg for 21 days and atorvastatin 40 mg at night. Patient was informed that he would need to continue aspirin and atorvastatin indefinitely. He will likely benefit with another repeat echo as an outpatient within 3 months. Follow-up with neurologist as outpatient #Anxiety #Trace pericardial effusion without tamponade per echo finding #Hypertensive Emergency #ASHLEE on dialysis #Hyperkalemia #Uremia #Complex Renal Cyst Rest of the management as per primary care team. Plan of care discussed with neurologist, Dr Tanvi Aviles MD PGY3 Attending Provider Attestation/Addendum I personally have seen and examined the patient chronic white matter changes and I agree with resident's findings, assessment and plan of care patient presenting symptoms and radiological findings are consistent with acute infarction. Patient is advised to continue with dual antiplatelet therapy for 21 days followed by aspirin alone along with statin. Echocardiogram showed trace pericardial effusion without cardiac tamponade. Chronic white matter changes are not from demyelinating disease but from chronic small vessel disease.
[2024-12-22] MEDS: ASPIRIN EC 81 MG TABEC PO (12:01)
[2024-12-22] MEDS: METOPROLOL SUCCINATE XL 25 MG TABCR PO (12:13)
--- NOTE | 2024-12-22 13:20 | PD.RESPRO ---
Documentation for date of: 12/22/24 Subjective Subjective Interval history: Patient was in dialysis session this morning. No overnight events. Still hypertensive 150/80 and tachycardic 110?115. Still feels frustrated about situation but all questions answered in full and MRI findings were explained of acute ischemic stroke in left basal ganglia. In-house neurology was consulted. Patient will be started on aspirin, atorvastatin, Plavix for 21 days. Aspirin and atorvastatin to be continued lifelong. Outpatient hemodialysis chair is pending. Hepatitis panel negative, PPD is pending as well. Will discontinue metoprolol and start patient on Coreg 6.25mg twice daily for BP and rate control. Echocardiogram showed EF 55 to 60%. Mildly dilated LA. Trace pericardial effusion without tamponade. Negative bubble study. Exam Vital Signs Temp Pulse Resp BP Pulse Ox O2 Del Method O2 Flow Rate 96.6 F L 124 H 13 140/90 H 99 Room Air 2 12/22/24 12:00 12/22/24 12:13 12/22/24 12:00 12/22/24 12:13 12/22/24 12:00 12/22/24 12:00 12/20/24 16:20 Narrative Exam General: Young male, anxious, cooperative HEENT: NCAT, No JVD noted. Mucosa moist. Pupils are equal and reactive to light bilaterally Cardiovascular: Normal S1 and S2. Regular rate, tachycardia Respiratory: Lungs are clear to auscultation bilaterally. No wheezing or crackles heard. Abdomen: Soft, nontender, not distended, normal bowel sounds. Skin: Warm to touch, dry, no rashes noted, right IJ cath Musculoskeletal: No gross injuries. Able to move all 4 extremities. No pitting edema Neuro: Alert and oriented x3. No focal neuro deficits. Psych: Normal affect and mood, somewhat irritable, anxious Objective Labs 12/23/24 04:23 12/23/24 04:23 Labs: Laboratory Results - last 24 hr 12/20/24 12/21/24 12/22/24 15:07 14:25 04:51 WBC 11.3 H RBC 3.39 L Hgb 10.6 L Hct 32.3 L MCV 95 MCH 31.3 MCHC 32.8 RDW Std Deviation 43.1 Plt Count 180 D Neut % (Auto) 67 Lymph % (Auto) 18 [place] % (Auto) 12 Eos % (Auto) 3 Baso % (Auto) 1 Neut # (Auto) 7.6 Lymph # (Auto) 2.0 [place] # (Auto) 1.4 H Eos # (Auto) 0.4 Baso # (Auto) 0.1 Immature Gran # (Auto) 0.03 H Absolute Nucleated RBC 0.00 Immature Gran % 0 Nucleated RBC % 0 Sodium 139 142 Potassium 4.4 D 5.3 H D Chloride 101 106 Carbon Dioxide 27.2 23.4 Anion Gap 11 13 BUN 33 H 36 H Creatinine 5.8 H* D 6.9 H* D Estim Creat Clear Calc 25.9 L 21.9 L eGFR 12 L* 10 L* BUN/Creatinine Ratio 6 L 5 L Glucose 97 89 Calculated Osmolality 284 290 Calcium 9.2 9.4 Corrected Calcium 9.5 Phosphorus 5.9 H Magnesium 1.8 Total Bilirubin 0.3 AST 17 ALT 11 Alkaline Phosphatase 44 L Total Protein 5.9 Albumin 3.9 Globulin 2.0 L Albumin/Globulin Ratio 2.0 Hepatitis A IgM Ab Non Reactive Hep Bs Antigen Non Reactive Hep Bs Antibody Reactive (Immune) Hep B Core IgM Ab Non Reactive Hepatitis C Antibody Non Reactive Quality Measures Quality Measures stroke Suspected type of Stroke: Acute Ischemic Tenecteplase given: Reason(s) Tenecteplase not given: Uncontrolled BP not given Rehab services: PT evaluation ordered and Speech Language Pathology eval ordered VTE Prophylaxis: pharmaceutical Antithrombotic by day 2:: ordered Statin ordered: <75 y/o high intensity dose Anticoagulation ordered for A-fib or flutter (current or hx): not indicated Assessment & Plan Assessment Current Active Medications: Generic Name Dose Route Start Last Admin Trade Name Cashq PRN Reason Stop Dose Admin Acetaminophen 650 mg 12/20/24 14:40 Acetaminophen 325 Mg Tablet PO 01/19/25 14:39 Q6H PRN Fever >100.1 or pain Aspirin 81 mg 12/20/24 15:45 12/22/24 12:01 Aspirin Ec 81 Mg Tabec PO 01/19/25 15:44 81 mg DAILY SHEYLA Administration Heparin Sodium (Porcine) 3,500 unit 12/20/24 21:40 12/22/24 10:49 Heparin Sod Inj 1000 Unit/Ml Vial 10 Ml INDWELLCAT 01/03/25 21:39 3,500 unit PRN PRN Administration DIALYSIS Albumin Human 25 gm in 100 mls @ 100 mls/min 12/20/24 14:52 Albuminar-25 Ivpb IV PRN PRN DIALYSIS Labetalol HCl 10 mg 12/21/24 06:25 12/22/24 00:27 Labetalol Inj 5 Mg/Ml Vial 20 Ml IVP 01/20/25 06:24 10 mg X1 PRN Administration SBP > 170, DBP >100 Metoprolol Succinate 25 mg 12/22/24 08:25 12/22/24 12:13 Metoprolol Succinate Xl 25 Mg Tabcr PO 01/21/25 08:24 25 mg QDAY SHEYLA Administration Ondansetron HCl 4 mg 12/20/24 14:40 12/20/24 16:18 Ondansetron Inj 2 Mg/Ml Inj 2 Ml IVP 01/19/25 14:39 4 mg Q6H PRN Administration NAUSEA OR VOMITING Protocol Sennosides 1 tab 12/20/24 14:40 Senna Tablet PO 01/19/25 14:39 QDAY PRN constipation Protocol Sodium Chloride 3 ml 12/21/24 07:24 Sodium Chloride Rt La 0.9% 3 Ml Nebu INH 01/20/25 07:23 PRN PRN SOLN Plan 34 yom with a h/o htn on lisinopril who presents to the ED with blurred vision, clamminess, and weakness, found to be hypertensive with systolics at the 200s, K of 6.3 and Cr of 8.5, admitted for emergent dialysis and hypertensive emergency. Recieved HD that same evening. Morning labs on 12/21 still showed elevated K, BUN, and Cr of 5.4, 53, and 7.3 respectively. Repeated dialysis this morning. #Hypertensive Emergency-resovled #Acute renal failure #Hyperkalemia-improving #Uremia Patient's blood pressure has been persistently elevated, highest being 201/127, K of 6.3, BUN 80, Cr of 8.5, eGFR 8. UA had 2+ protein, 1 RBC and 1 WBC. Renal US showed cortical thinning. Patient was given Labetolol 10 mg, SPS, albuterol, Insulin 5U then Insulin 10U after the repeat renal panel, Calcium gluconate 1g which was also repeated, and started on Nicardipine drip in the ED. Severe htn is the likely cause of the ASHLEE, but intrinsic renal cause is also possibility. Also considering the possibility of medication non-adherence with lisinopril as a possible cause of chronic deterioration. U Na and U Cr both wnl at 68 and 55 respectively. UA did not show significant protein or blood, making nephrotic and nephritic syndromes lower on the differential. Renal cortical thinning suggests a possible chronic process that may have decompensated today, possibly longstanding severe htn. High suspicion of CKD due to poorly controlled hypertension. Will continue inpatient HD until outpatient chair arranged. Pending PPD results as well. -Appreciate nephrology recommendations. ANCA, anti GBM, BARRETT, DS DNA pending -Amlodipine 10mg -start coreg 6.25mg BID -patient would benefit from kidney biopsy outpatient as a further workup for underlying causes of kidney injury #Slurred speech #Blurred vision / #Acute ischemic stroke Patient reporting blurred vision for the last 2 weeks. Slurred speech the day of admission which resolved. Saw an specialty department supervisor on 12/20 (day of admission) who noted macular edema and recommending retinal specialist. This may be from chronic hypertensive changes. Also considering PRES as possible differential especially for the transient slurred speech. MRI Brain showed nonspecific periventricular white matter changes consistent with high blood pressure and acute stroke in left basal ganglia. - Start patient on aspirin 81 mg daily (aspirin to be continued indefinitely) - Plavix 75 mg daily (for 21 days) - Atorvastatin 40 mg at bedtime (continue indefinitely) - repeat echo as an outpatient within 3 months #Anxiety Longstanding history of moderate anxiety, had been on chlordiazepam for this in the past but has not used it in 3 years. Used to be followed by PCP for this at that time but is switching PCPs currently due to insurance change. It is possible that his untreated anxiety has elevated his BP to severe levels chronically and have contributed to his htn. -Lorazepam today, 1 mg. -Consider hydroxyzine PRN while hospitalized. 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 Possibly related to his hypertensive emergency above, but unclear to what degree. -Consider MRI of the kidneys once BP and ASHLEE are undercontrol. Health Maintenance: DVT prophylaxis: SCDs Diet: Renal Diet Rosas: No Lines: PIV, Dialysis catheter CODE STATUS: Full code Disposition: Inpatient dialysis, BP control Patient's plan and care discussed with my attending, Dr. Grady. Mirella Licona, PGY2 Attending Provider Attestation/Addendum 34-year-old male with history of hypertension who presented to the ER with blurry vision and nausea and vomiting. 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 In the ER, patient underwent CT head and stroke alert was activated however teleneurology did not recommend tPA and recommended stroke workup. In addition, was noted to have acute kidney injury with associated hyperkalemia and uremia. As a result, nephrology was consulted and plan for emergent hemodialysis. Overnight, patient underwent MRI imaging and finding of basal ganglia infarct for which neurology recommended aspirin Plavix and Lipitor. Blood pressure well-controlled and patient underwent emergent hemodialysis as well. Appreciate neurology and nephrology input. I have also personally examined the patient with medicine team and went over assessment and plan with medical team including news department intern and resident physician.
[2024-12-22] MEDS: CLOPIDOGREL BISULFATE 75 MG TABLET PO (14:34)
--- NOTE | 2024-12-22 16:09 | PC.SS ---
Rounding Note: TB read pending. Authorization for outpatient dialysis pending. Dr. Diaz mercury cell cleaner.
--- NOTE | 2024-12-22 17:03 | PD.NEPHPROG ---
Documentation for date of: 12/22/24 Subjective Subjective Interval history: 34 yr male PMH of htn on lisinopril and prior heavy alcohol use now sober, who presents to the ED with blurred vision, clamminess, slurred speech and nausea without vomiting. This started as blurred vision two weeks ago. Started experiencing symptoms on his way to work. Labs showed hyperkalemia 6.3, Cr 8.7, GFR 8. CT head and CTA neck were negative. Renal US was negative for hydronephrosis but noted a complex cystic structure on the left kidney with cortical thinning. BP 201/127, Nephrology is consulted for renal failure and hyperkalemia. Patient is a seen and examined. Patient had a tunneled hemodialysis today. Patient is aware this seen a lot of family members including his mom. Patient looks very upset about the situation. Patient has a lot of question about renal failure. Explained in detail to him and to his family. Patient denies any nausea. Denies any vomiting. Denies any shortness of breath. Patient is tolerating dialysis well. Exam Vital Signs Temp Pulse Resp BP Pulse Ox O2 Del Method O2 Flow Rate 96.6 F L 124 H 13 140/90 H 99 Room Air 2 12/22/24 12:00 12/22/24 12:13 12/22/24 12:00 12/22/24 12:13 12/22/24 12:00 12/22/24 12:00 12/20/24 16:20 Narrative Exam GEN. APPEARANCE: Patient is a well-hydrated, well-nourished in no acute distress. HEENT: Patient is normocephalic, atraumatic, EOMI, PERRLA. Throat is without erythema or exudate. Moist oral mucosa. NECK: Neck is supple, no JVD or bruits. CARDIOVASCULAR: Heart is regular in rhythm. S1 and S2 normal. LUNGS\CHEST: Lungs are clear to auscultation bilaterally. No rales, rhonchi, or wheezing. Normal inspection. ABDOMEN: Abdomen is soft, nontender, with normal bowel sounds. No pulsatile masses. No rebound, rigidity, or guarding. Normal inspection and palpation. EXTREMITIES: Normal inspection and palpation. No edema, clubbing, or cyanosis. SKIN: Skin is warm and dry without rashes. Normal inspection. MUSCULOSKELETAL: No calf tenderness, no joint swellings. NEURO: Patient is awake, alert and oriented into 3. No focal weakness or numbness. PSYCHIATRIC: Normal mood and affect. Denies homicidal or suicidal ideation. GENITOURINARY: No CVA tenderness. No flank masses. No suprapubic tenderness or swelling. LYMPHATICS: No adenopathy noted in the inguinal, axillary, or cervical chains. Objective Labs 12/22/24 04:51 12/22/24 04:51 Labs: Laboratory Results - last 24 hr 12/22/24 04:51 WBC 11.3 H RBC 3.39 L Hgb 10.6 L Hct 32.3 L MCV 95 MCH 31.3 MCHC 32.8 RDW Std Deviation 43.1 Plt Count 180 D Neut % (Auto) 67 Lymph % (Auto) 18 [place] % (Auto) 12 Eos % (Auto) 3 Baso % (Auto) 1 Neut # (Auto) 7.6 Lymph # (Auto) 2.0 [place] # (Auto) 1.4 H Eos # (Auto) 0.4 Baso # (Auto) 0.1 Immature Gran # (Auto) 0.03 H Absolute Nucleated RBC 0.00 Immature Gran % 0 Nucleated RBC % 0 Sodium 142 Potassium 5.3 H D Chloride 106 Carbon Dioxide 23.4 Anion Gap 13 BUN 36 H Creatinine 6.9 H* D Estim Creat Clear Calc 21.9 L eGFR 10 L* BUN/Creatinine Ratio 5 L Glucose 89 Calculated Osmolality 290 Calcium 9.4 Corrected Calcium 9.5 Phosphorus 5.9 H Magnesium 1.8 Total Bilirubin 0.3 AST 17 ALT 11 Alkaline Phosphatase 44 L Total Protein 5.9 Albumin 3.9 Globulin 2.0 L Albumin/Globulin Ratio 2.0 Assessment & Plan Assessment and plan (1) Renal failure: Status: Acute Assessment and plan: Kidney ultrasound reviewed which shows chronic changes. Most likely chronic kidney disease. But patient did not know anything about the kidney disease. Patient was not following a physician regularly and was not doing the blood work. But states that he was feeling well otherwise. Patient really wanted know about the reason of her kidney disease and so I. Patient is very young. Patient do not have any history of kidney disease. Anti-GBM and ANCA and double-stranded DNA are still pending. Urine studies reviewed. Urine showed protein in the urine. Will do urine protein creatinine ratio. To establish diagnosis of kidney disease and about the chronicity need kidney biopsy. Risks and benefits of kidney biopsy are explained. Will order kidney biopsy. Patient had third dialysis today. Patient will be on dialysis 3 times a week at this point. Will watch for kidney function. Discussed if he need a long-term dialysis that he will need AV fistula but he also has option to do peritoneal dialysis which he can do at home. He is young and active and working so peritoneal dialysis will be better for him. If he needs long-term dialysis then we will recommend peritoneal dialysis. Which will be taken care of as outpatient. Patient has a complex renal cyst. Recommend to do MRI. Also discussed with the resident of the primary team. Requested if he can have some outpatient records. Resident will request outpatient records. (2) Hypertensive emergency: Status: Acute (3) Acute hyperkalemia: Status: Acute
--- NOTE | 2024-12-22 18:35 | EKG_ITS ---
[facility] Test Date: 2024-12-22 Pat Name: MEGHNA RIVAS Department: Room: S261A Gender: Male Remote Pilot Operator: PRITESH : 1990 Requested By: Mirella Licona Order Number: [id number] Reading MD: Mirella Licona Measurements Intervals [place] Rate: 104 P: 24 TN: 131 QRS: -11 QRSD: 106 T: 153 QT: 347 QTc: 458 Interpretive Statements SINUS TACHYCARDIA INCOMPLETE RIGHT BUNDLE BRANCH BLOCK LEFT VENTRICULAR HYPERTROPHY AND ST-T CHANGE Compared to ECG 12/20/2024 10:54:32 Incomplete right bundle-branch block now present Sinus rhythm no longer present ST (T wave) deviation still present /store/S0/[id number].pdf
[2024-12-22] MEDS: Magnesium Sulfate 2 GM Ivpb 2 GM/50 ML BAG IV (19:01)
--- NOTE | 2024-12-22 20:01 | PC.RT ---
Entered patients room to perform routine EKG. Upon approach,I explained I was there to perform an EKG. Pt began verbally aggressive and began cussing, stating he did not want the EKG performed. pt refused procedure. MD and RN notified. will attempt EKG at a later time as appropriate.
[2024-12-22] MEDS: ATORVASTATIN CALCIUM 20 MG TABLET 40 MG PO (20:14)
[2024-12-22 22:11] LABS: Creatinine,Random Urine 63 mg/dL (30-125); Protein Total, Random Urine 228 mg/dL (1-14)
[2024-12-23] VITALS (9 sets, daily range): BP systolic 132–159; BP diastolic 79–111; PULSE 83–108; RESP 13–20; TEMP 35.9–36.8; O2SAT 92–99
--- NOTE | 2024-12-23 | XR_ITS ---
Examination: MRI abdomen, without contrast Date and time of exam: December 23, 2024, 0950 hours INDICATIONS: Alcohol abuse history, nausea abdominal pain this week, mid left kidney complex cystic mass 24 x 20 x 22 mm Technique: Multiple axial sagittal and coronal images of the abdomen have been obtained with the Siemens high-resolution 1.5 Shivani MRI scanner. Images obtained include T2-weighted fat-suppressed sagittal sections, TR 3500, TE 46, T2 weighted coronal fat suppressed images, TR 3050, TE 84, T2-weighted transverse fat suppressed images, TR 3260, TE 63, proton density transverse images, TR 4720 TE 46, and T1 weighted coronal images, TR 560, TE 13. Findings: No focal liver or splenic lesion No gallstones Normal common hepatic common bile duct. Normal pancreas Solid mass lateral margin left kidney, 24 x 20 mm No abdominal lymphadenopathy IMPRESSION: Solid mass lateral margin left kidney, differential would include renal cell carcinoma
[2024-12-23 05:27] LABS: Basophils # (Auto) 0.1 Thou/mm3 (0.0-0.2); Basophils % (Auto) 1 % (0-2.5); Eosinophils # (Auto) 0.9 Thou/mm3 (0.0-0.5); Eosinophils % (Auto) 8 % (0-10); Hematocrit 34.9 % (41.0-53.0); Hemoglobin 11.5 g/dL (13.5-16.0); Immature Granulocytes Auto 0.04 Thou/mm3 (0.00-0.00); Lymphocytes # (Auto) 2.0 Thou/mm3 (1.0-4.8); Lymphocytes % (Auto) 20 % (10-50); Mean Corpuscular HGB Conc 33.0 g/dl (31.0-37.0); Mean Corpuscular Hemoglobin 31.0 pg (25.0-35.0); Mean Corpuscular Volume 94 fL (80-100); Monocytes # (Auto) 1.2 Thou/mm3 (0.0-0.8); Monocytes % (Auto) 12 % (0-12); Neutrophils # (Auto) 6.1 Thou/mm3 (1.8-7.7); Neutrophils % (Auto) 59 % (37-80); Nucleated Red Blood Cell # 0.00 Thou/mm3 (0.00-0.00); Nucleated Red Blood Cell % 0 /100 WBC (0); Platelet Count 226 Thou/mm3 (140-440); RDW Standard Deviation 42.0 fL (35.1-43.9); Red Blood Count 3.71 Miln/mm3 (4.50-5.90); White Blood Count 10.3 Thou/mm3 (3.8-10.6)
[2024-12-23 06:15] LABS: Alanine Aminotransferase 21 U/L (10-49); Albumin, Serum 4.1 gm/dL (3.5-5.0); Albumin/Globulin Ratio 2.0 (1.2-2.2); Alkaline Phosphatase 46 U/L (46-116); Anion Gap 12 (7-16); Aspartate Amino Transferase 22 U/L (0-34); BUN/Creatinine Ratio 6 Ratio (12-20); Bilirubin,Total 0.3 mg/dL (0.3-1.2); Blood Urea Nitrogen 35 mg/dL (9-23); Calcium 9.3 mg/dL (8.3-10.6); Calcium (Corrected) 9.3 mg/dL (8.5-10.1); Carbon Dioxide 24.7 mMol/L (20.0-31.0); Chloride 102 mMol/L (98-107); Creatinine (Component) 6.0 mg/dL (0.6-1.3); Estimated Creatinine Clearance 24.8 mL/min (>60); Globulin 2.1 gm/dL (2.3-3.5); Glucose 97 mg/dL (74-106); Magnesium 2.0 mg/dL (1.6-2.6); Osmolality,Calculated 285 (275-295); Phosphorous 5.9 mg/dL (2.4-5.1); Potassium 4.8 mMol/L (3.4-5.1); Sodium 139 mMol/L (136-145); Total Protein 6.2 gm/dL (5.7-8.2); eGFR 12 See Note
--- NOTE | 2024-12-23 08:26 | PC.NURSE ---
called MD to ask for med for MRI pt states he gets anxiety, MD will put in order. Also, notified MD that brush clearing laborer might hold kidney biopsy due to plavix taken by patient 12/22
--- NOTE | 2024-12-23 09:15 | PC.NURSE ---
[facility] order for Medical Kidney Biopsy, reviewed with Dr. Bowen. Per , patient needs to be off of blood thinners for 3 days. Also recommended on his report for patient to get an MRI. All of this information was communicated to Juli CABAN.
--- NOTE | 2024-12-23 10:31 | PC.SS ---
Rounding: Pending MRI and CT BX, DC plan home
--- NOTE | 2024-12-23 10:45 | ESPR_ITS ---
Documentation for date of: 12/23/24 Subjective Subjective Interval history: This is a 34 yom with a h/o htn on lisinopril and prior heavy alcohol use now sober, who presents to the ED with blurred vision, clamminess, and nausea without vomiting. This started as blurred vision two weeks ago. He started taking an herbal supplement, bilberry lutein, to help with this symptom. He also noted decreased pressure behind his urine stream. He also reports increased constipation starting 2 days ago. This morning, he started feeling unwell, went to work, and started feeling very clammy and nauseated with slurring speech, which prompted him to go to the ED. He denies fever, headache, recent URI or GI illness, chest pain, shortness of breath, hemoptysis, abdominal pain, swelling, hematuria, increased foamy urine, or new skin rash. He also denies family history of autoimmune disorders and kidney disease. Apparently he saw an eye doctor today, investment banking manager who felt he has bilateral macular edema of unclear etiology and is being referred to a retinal specialist. Patient came to the hospital for further evaluation. Labs showed hyperkalemia 6.3, Cr 8.7, GFR 8. CT head and CTA neck were negative. Renal US was negative for hydronephrosis but noted a complex cystic structure on the left kidney with cortical thinning. BP 201/127, HR 106. Patient required BP control with nicardipine drip prior to IR procedure for dialysis catheter placement. BP improved to 130/60 and now s/p right TDC. Nephrology Dr. Diaz was consulted. Patient received dialysis on the night of admission, and again on the morning of 12/21. That same day MRI of the brain demonstrated nonspecific periventricular white matter changes consistent with high blood pressure and acute stroke in left basal ganglia. Neurology was consulted, he was started on aspirin, plavix, and atorvastatin per their recommendations. Patient was also started on amlodine. 12/22 Still hypertensive 150/80 and tachycardic 110?115. Coreg 6.25mg twice daily for BP and rate control. Hepatitis panel negative. Dr. Diaz recommending renal biopsy for further diagnostic workup of the severe ASHLEE. Aspirin and plavix were held for this procedure. 12/23 MRI of the abdomen demonstrated Solid mass lateral margin left kidney, 24 x 20 mm. Patient and family feeling frustrated with the apparent lack of coordination and consistent communication. Requested to be seen by Dr. Corbin as their building maintenance repairer. She recommended biopsy of the mass and and separate biopsy of the renal parenchyma she is also recommending urology consult for concern of RCC. Dr. 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 However, agreed to biopsy the right kidney for nephrology. Pending urology recommendations. Currently still hypertensive, 149/87. Started Nifedine and discontinued amlodipine. NPO midnight of right kidney biopsy tomorrow. Hold aspirin and plavix, last dose 12:00 and 14:00 respectively on 12/22. Restart after procedure. Still having bigeminy overnight, K has been wnl. Continue to moniter on tele. Exam Vital Signs Temp Pulse Resp BP Pulse Ox O2 Del Method O2 Flow Rate 98.2 F 83 16 137/96 H 97 Room Air 2 12/23/24 08:00 12/23/24 08:00 12/23/24 08:00 12/23/24 08:00 12/23/24 08:00 12/23/24 08:00 12/20/24 16:20 Narrative Exam General: Patient walking around, then sitting in bed, somewhat frustrated but in no acute distress. HEENT: Mucosa moist, no oropharyngeal lesions. Pupils are equal and reactive to light bilaterally, no scleral icterus or injection. No periorbital edema. Cardiovascular: Tachycardic with regular rate, occaisional beat doublet. Respiratory: Clear to auscultation bilaterally without wheezes or crackles. Abdomen: Soft, nontender, not distended, Skin: Dry, rosangela cheeks with telangiectasias, no petechiae or purpura noted. Musculoskeletal: No gross injuries. Able to move all 4 extremities. Non edematous lower extremities. Neuro: Alert and oriented x3. No focal neuro deficits. Objective Labs 12/23/24 04:23 12/23/24 04:23 Labs: Laboratory Results - last 24 hr 12/22/24 12/23/24 18:50 04:23 WBC 10.3 RBC 3.71 L Hgb 11.5 L Hct 34.9 L MCV 94 MCH 31.0 MCHC 33.0 RDW Std Deviation 42.0 Plt Count 226 D Neut % (Auto) 59 Lymph % (Auto) 20 [place] % (Auto) 12 Eos % (Auto) 8 Baso % (Auto) 1 Neut # (Auto) 6.1 Lymph # (Auto) 2.0 [place] # (Auto) 1.2 H Eos # (Auto) 0.9 H Baso # (Auto) 0.1 Immature Gran # (Auto) 0.04 H Absolute Nucleated RBC 0.00 Immature Gran % 0 Nucleated RBC % 0 Sodium 139 Potassium 4.8 D Chloride 102 Carbon Dioxide 24.7 Anion Gap 12 BUN 35 H Creatinine 6.0 H* D Estim Creat Clear Calc 24.8 L eGFR 12 L* BUN/Creatinine Ratio 6 L Glucose 97 Calculated Osmolality 285 Calcium 9.3 Corrected Calcium 9.3 Phosphorus 5.9 H Magnesium 2.0 Total Bilirubin 0.3 AST 22 ALT 21 Alkaline Phosphatase 46 Total Protein 6.2 Albumin 4.1 Globulin 2.1 L Albumin/Globulin Ratio 2.0 Ur Random Creatinine 63 U Random Total Protein 228 H Quality Measures Quality Measures stroke Suspected type of Stroke: Acute Ischemic Tenecteplase given: Reason(s) Tenecteplase not given: Uncontrolled BP not given Rehab services: PT evaluation ordered VTE Prophylaxis: mechanical Antithrombotic by day 2:: ordered Statin ordered: <75 y/o high intensity dose Anticoagulation ordered for A-fib or flutter (current or hx): not indicated Assessment & Plan Assessment Current Active Medications: Generic Name Dose Route Start Last Admin Trade Name Freq PRN Reason Stop Dose Admin Acetaminophen 650 mg 12/20/24 14:40 Acetaminophen 325 Mg Tablet PO 01/19/25 14:39 Q6H PRN Fever >100.1 or pain Aspirin 81 mg 12/20/24 15:45 12/22/24 12:01 Aspirin Ec 81 Mg Tabec PO 01/19/25 15:44 81 mg On Hold: 12/22/24 18:32 DAILY SHEYLA Administration Atorvastatin Calcium 40 mg 12/22/24 21:00 12/22/24 20:14 Atorvastatin Calcium 20 Mg Tablet PO 01/21/25 20:59 40 mg HS SHYELA Administration Carvedilol 6.25 mg 12/22/24 17:30 12/23/24 08:23 Carvedilol 3.125 Mg Tablet PO 01/21/25 17:29 Not Given BIDWM SHEYLA Clopidogrel Bisulfate 75 mg 12/22/24 13:45 12/22/24 14:34 Clopidogrel Bisulfate 75 Mg Tablet PO 01/21/25 13:44 75 mg On Hold: 12/22/24 18:32 QDAY SHEYLA Administration Heparin Sodium (Porcine) 3,500 unit 12/20/24 21:40 12/22/24 10:49 Heparin Sod Inj 1000 Unit/Ml Vial 10 Ml INDWELLCAT 01/03/25 21:39 3,500 unit PRN PRN Administration DIALYSIS Albumin Human 25 gm in 100 mls @ 100 mls/min 12/20/24 14:52 Albuminar-25 Ivpb IV PRN PRN DIALYSIS Labetalol HCl 10 mg 12/21/24 06:25 12/22/24 00:27 Labetalol Inj 5 Mg/Ml Vial 20 Ml IVP 01/20/25 06:24 10 mg X1 PRN Administration SBP > 170, DBP >100 Ondansetron HCl 4 mg 12/20/24 14:40 12/20/24 16:18 Ondansetron Inj 2 Mg/Ml Inj 2 Ml IVP 01/19/25 14:39 4 mg Q6H PRN Administration NAUSEA OR VOMITING Protocol Sennosides 1 tab 12/20/24 14:40 Senna Tablet PO 01/19/25 14:39 QDAY PRN constipation Protocol Sodium Chloride 3 ml 12/21/24 07:24 Sodium Chloride Rt La 0.9% 3 Ml Nebu INH 01/20/25 07:23 PRN PRN SOLN Plan 34 yom with a h/o htn on lisinopril who presents to the ED with blurred vision, clamminess, and weakness, found to be hypertensive with systolics at the 200s, K of 6.3 and Cr of 8.5, admitted for emergent dialysis and hypertensive emergency. Recieved HD that same evening. Morning labs on 12/21 still showed elevated K, BUN, and Cr of 5.4, 53, and 7.3 respectively. Repeated dialysis this morning. #Acute renal injury requiring dialysis #Hypertensive Emergency-resovled #Hyperkalemia-resolved #Uremia-resolved Patient's blood pressure has been persistently elevated, highest being 201/127, K of 6.3, BUN 80, Cr of 8.5, eGFR 8. UA had 2+ protein, 1 RBC and 1 WBC. Renal US showed cortical thinning. Patient was given Labetolol 10 mg, SPS, albuterol, Insulin 5U then Insulin 10U after the repeat renal panel, Calcium gluconate 1g which was also repeated, and started on Nicardipine drip in the ED. Severe htn is the likely cause of the ASHLEE, but intrinsic renal cause is also possibility. Also considering the possibility of medication non-adherence with lisinopril as a possible cause of chronic deterioration. U Na and U Cr both wnl at 68 and 55 respectively. UA did not show significant protein or blood, making nephrotic and nephritic syndromes lower on the differential. Renal cortical thinning suggests a possible chronic process that may have decompensated today, possibly longstanding severe htn. High suspicion of CKD due to poorly controlled hypertension. Will continue inpatient HD until outpatient chair arranged. Pending PPD results as well. -Appreciate nephrology recommendations. ANCA, anti GBM, BARRETT, DS DNA pending -DC Amlodipine 10mg start nifedipine 60mg daily. -start coreg 6.25mg BID -Dr Corbin now seeing patient per family's request. patient would benefit from kidney biopsy as a further workup for underlying causes of kidney injury. Plan for bx of right kidney tomorrow. -HD sessions per nephrology recommendations. -NPO after midnight. #Acute ischemic stroke Patient reporting blurred vision for the last 2 weeks. Slurred speech the day of admission which resolved. Saw an investment banking manager on 12/20 (day of admission) who noted macular edema and recommending retinal specialist. This may be from chronic hypertensive changes. Also considering PRES as possible differential especially for the transient slurred speech. MRI Brain showed nonspecific periventricular white matter changes consistent with high blood pressure and acute stroke in left basal ganglia. - Start patient on aspirin 81 mg daily (aspirin to be continued indefinitely) - Plavix 75 mg daily (for 21 days) - Atorvastatin 40 mg at bedtime (continue indefinitely) - repeat echo as an outpatient within 3 months #Anxiety #Difficulty sleeping Longstanding history of moderate anxiety, had been on chlordiazepam for this in the past but has not used it in 3 years. Used to be followed by PCP for this at that time but is switching PCPs currently due to insurance change. It is possible that his untreated anxiety has elevated his BP to severe levels chronically and have contributed to his htn. Having trouble sleeping at night as well, requesting ativan. -Melatonin 6mg HS initially. -Lorazepam 1 mg, x1 tonight if melatonin doesn't work. 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 Possibly related to his hypertensive emergency above, but unclear to what degree. MRI abdomen demonstrated Solid mass lateral margin left kidney, 24 x 20 mm. -Urology consulted Health Maintenance: DVT prophylaxis: SCDs Diet: NPO midnight Rosas: No Lines: PIV, Dialysis catheter CODE STATUS: Full code Disposition: Inpatient dialysis, BP control, biopsy. Patient's plan and care discussed with my attending, Dr. Grady and my senior Dr. Tinajero. Kirill Mai, DO PGY-1 ([facility] Resident) Attending Provider Attestation/Addendum 34-year-old male with history of hypertension who presented to the ER with blurry vision and nausea and vomiting. 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 In the ER, patient underwent CT head and stroke alert was activated however teleneurology did not recommend tPA and recommended stroke workup. In addition, was noted to have acute kidney injury with associated hyperkalemia and uremia. As a result, nephrology was consulted and plan for emergent hemodialysis. Furthermore, patient underwent MRI imaging and finding of basal ganglia infarct for which neurology recommended aspirin Plavix and Lipitor. Blood pressure well- controlled and patient underwent emergent hemodialysis as well. Appreciate neurology and nephrology input. In addition, MRI of the abdomen with findings of possible solid mass. Discussed with nephrology and recommendation to obtain urologic consultation. I did speak to patient and family in detail about the current workup and management plan. Answered all of their question.I reviewed above note and agree with findings and plans. I have also personally examined the patient with medicine team and went over assessment and plan with medical team including internet webmaster and resident physician.
--- NOTE | 2024-12-23 13:56 | PC.SS ---
SS sent updated clinicals to RA Dempsey as requested by Mini from [facility] Dempsey
--- NOTE | 2024-12-23 14:33 | ESCONSULT_ITS ---
HPI Data of Consult Consult date: 12/23/24 Requesting Physician: Cornelius Grady MD Admitting Provider: Cornelius Grady MD Attending Provider: Cornelius Grady MD Primary Care Provider: Patrick Lewis MD Consult Narrative Reason for consult: ASHLEE History of present illness: History of Present Illness: 34 y/o with PMH of HTN on lisinopril and prior heavy alcohol use now sober, who presents to the hospital on 12/20/2024 due to High BP of 210/120, blurred vision, clamminess, and nausea without vomiting. 2 weeks of blurred vision, weaker urinary streams, felt nauseated, and began to experience slurred speech. Denies chest pain, palpation, SOB, abdominal pain, fevers or chills. Patient was admitted for emergent dialysis, hyperkalemia, hypertensive emergency. Nephrology has been consulted for management of hemodialysis. ED Course: -Patient presented with BP 201/127, repeat 194/120 HR 106, T 98, RR 18, O2 98% on RA. -Labs notable for WBC 11.1 Hgb 11.7, K 5.8, BUN 81 Cr 8.7, GFR 8. -Repeat labs: K 6.3, BUN 80, Cr 8.5, -CT head and CTA neck were negative. EKG notable LVH by voltage criteria and non specific ST changes. Renal US was negative for hydronephrosis but noted a complex cystic structure on the left kidney with cortical thinning. -Patient was given Labetolol 10 mg, SPS, albuterol, Insulin 5U then Insulin 10U after the repeat renal panel, Calcium gluconate 1g which was also repeated, and started on Nicardipine drip. BP improved to 126/75 and nicardipine drip was stopped. -Nephrology consulted, recommended emergent dialysis. Patient seen by Dr. Diaz. -Patient was taken to IR for dialysis catheter placement. -Admitted for emergent dialysis, hyperkalemia, hypertensive emergency. PMHX: HTN PSHx: Hernia repair at 5yo Meds: Lisinopril, OTC ibuprofen, naproxen, both a couple times per week. Takes bilberry lutein supplement. 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 12/23/2024: Entire family at bedside. Labs reviewed and patient examined at the bedside. BUN: 35, Cr:6.0, eGFR:12. Patient noted it has been a long time he did lab work. Baseline before admission is currently unknown. In regards to nephrology consultation, the patient and his family elected to transition care from Dr. Diaz to Dr. Corbin. While the patient did not provide a specific reason, they expressed that Dr. Corbin felt more well-rounded. Although patient's renal baseline is unknown, there is a risk of malignant nephrosclerosis in the setting of severe hypertension. However, given patient's renal status of persistently remaining in ASHLEE despite blood pressure control and needing hemodialysis, decided to proceed with kidney biopsy to rule out underlying glomerular disease. Patient agrees to continue with hemodialysis in outpatient setting. Received dialysis on /12/22. Currently pending outpatient dialysis chair. Patient currently has no symptoms to report. cc:: cc: Cornelius Grady MD Review of Systems Review of Systems Narrative Review of Systems: All 12 systems assessed and the patient denies unless otherwise stated in HPI Exam Vital Signs Temp Pulse Resp BP Pulse Ox O2 Del Method O2 Flow Rate 96.6 F L 94 17 159/79 H 92 L Room Air 2 12/23/24 12:12/23/24 13:12 12/23/24 12:12/23/24 13:12 12/23/24 12:12/23/24 12:12/20/24 16:20 Narrative Exam General: No acute distress, well nourished, AAO x3 Eye: PERRL, EOMI, normal conjunctiva, no scleral icterus HENT: Normocephalic, atraumatic, hearing intact to conversation at normal volume, moist oral mucosa Neck: Supple, non-tender, no JVD, no lymphadenopathy Lungs: Non-labored respirations, symmetric chest rise, Clear to auscultate bilaterally, No wheezing, rhonchi, crackles Heart: Peripheral pulses intact bilaterally, Regular Rate and Rhythm. Abdomen: Soft, non-tender, non-distended, no palpable mass, Righ IJ permanent tunneled dialysis catheter. Musculoskeletal: Normal range of motion and strength, No cyanosis or edema, No visible joint swelling Skin: Skin is warm, dry, no rashes or lesions. Psychiatric: Cooperative, appropriate mood and affect, Awake and alert, not agitated patient seems to be anxious. Neuro: Cranial nerves II-XII grossly intact. Strength 5/5 throughout. Sensations intact to light touch. Results Labs 12/23/24 04:23 12/23/24 04:23 Labs: Short CBC 12/23/24 Range/Units 04:23 WBC 10.3 (3.8-10.6) Thou/mm3 Hgb 11.5 L (13.5-16.0) g/dL Hct 34.9 L (41.0-53.0) % Plt Count 226 D (140-440) Thou/mm3 BMP 12/23/24 04:23 Sodium 139 Potassium 4.8 D Chloride 102 Carbon Dioxide 24.7 BUN 35 H Creatinine 6.0 H* D Glucose 97 Calcium 9.3 Liver Function 12/23/24 Range/Units 04:23 Total Bilirubin 0.3 (0.3-1.2) mg/dL AST 22 (0-34) U/L ALT 21 (10-49) U/L Alkaline Phosphatase 46 (46-116) U/L Albumin 4.1 (3.5-5.0) gm/dL Quality Measures Quality Measures stroke Suspected type of Stroke: Acute Ischemic Tenecteplase given: Reason(s) Tenecteplase not given: Uncontrolled BP not given Rehab services: PT evaluation ordered VTE Prophylaxis: pharmaceutical Antithrombotic by day 2:: ordered Statin ordered: <75 y/o high intensity dose Anticoagulation ordered for A-fib or flutter (current or hx): ordered Medications Home Medications and Allergies Home Medications ?Medication ?Instructions ?Recorded ?Confirmed ?Type albuterol sulfate 90 mcg/actuation 2 inh inhalation Q4 H PRN shortness 12/20/24 12/20/24 History aerosol inhaler of breath or wheezing lisinopril 20 mg tablet 20 mg PO DAILY 12/20/2411/30 History Held on 12/21/24. Instructions: Resume on 01/04/25. Hold until you see your PCP. Holding due to high potassium. prednisolone acetate 1 % eye 1 drp ophthalmic (eye) QI D 12/20/24 12/20/24 History drops,suspension Allergies Allergy/AdvReac Type Severity Reaction Status Date / Time Penicillins Allergy Severe Difficulty Verified 12/20/24 19:52 Breathing Visit Medications Acetaminophen (Acetaminophen 325 Mg Tablet) 650 mg PO Q6H PRN PRN Reason: Fever >100.1 or pain Stop: 01/19/25 14:39 Aspirin (Aspirin Ec 81 Mg Tabec) 81 mg PO DAILY SHEYLA On Hold: 12/22/24 18:32 Stop: 01/19/25 15:44 Last Admin: 12/22/24 12:01 Dose: 81 mg Atorvastatin Calcium (Atorvastatin Calcium 20 Mg Tablet) 40 mg PO HS SHEYLA Stop: 01/21/25 20:59 Last Admin: 12/22/24 20:14 Dose: 40 mg Carvedilol (Carvedilol 3.125 Mg Tablet) 6.25 mg PO BIDWM SHEYLA Stop: 01/21/25 17:29 Last Admin: 12/23/24 13:12 Dose: 6.25 mg Clopidogrel Bisulfate (Clopidogrel Bisulfate 75 Mg Tablet) 75 mg PO QDAY SHEYLA On Hold: 12/22/24 18:32 Stop: 01/21/25 13:44 Last Admin: 12/22/24 14:34 Dose: 75 mg Heparin Sodium (Porcine) (Heparin Sod Inj 1000 Unit/Ml Vial 10 Ml) 3,500 unit INDWELLCAT PRN PRN PRN Reason: DIALYSIS Stop: 01/03/25 21:39 Last Admin: 12/22/24 10:49 Dose: 3,500 unit Albumin Human (Albuminar-25 Ivpb) 25 gm in 100 mls @ 100 mls/min IV PRN PRN PRN Reason: DIALYSIS Labetalol HCl (Labetalol Inj 5 Mg/Ml Vial 20 Ml) 10 mg IVP X1 PRN PRN Reason: SBP > 170, DBP >100 Stop: 01/20/25 06:24 Last Admin: 12/22/24 00:27 Dose: 10 mg Ondansetron HCl (Ondansetron Inj 2 Mg/Ml Inj 2 Ml) 4 mg IVP Q6H PRN; Protocol PRN Reason: NAUSEA OR VOMITING Stop: 01/19/25 14:39 Last Admin: 12/20/24 16:18 Dose: 4 mg Sennosides (Senna Tablet) 1 tab PO QDAY PRN; Protocol PRN Reason: constipation Stop: 01/19/25 14:39 Sodium Chloride (Sodium Chloride Rt La 0.9% 3 Ml Nebu) 3 ml INH PRN PRN PRN Reason: SOLN Stop: 01/20/25 07:23 Discontinued Medications Albuterol (Albuterol Rt 2.5 Mg/0.5 Ml Nebu) 5 mg INH X1 ONE Stop: 12/20/24 11:46 Last Admin: 12/20/24 12:18 Dose: 5 mg Albuterol (Albuterol Rt 2.5 Mg/0.5 Ml Nebu) 5 mg INH X1 ONE Stop: 12/20/24 13:31 Last Admin: 12/20/24 13:52 Dose: 5 mg Albuterol (Albuterol Rt 2.5 Mg/0.5 Ml Nebu) 5 mg INH X1 ONE Stop: 12/21/24 07:27 Last Admin: 12/21/24 07:44 Dose: 5 mg Amlodipine Besylate (Amlodipine Besylate 5 Mg Tablet) 5 mg PO QDAY [facility] Stop: 01/20/25 11:59 Amlodipine Besylate (Amlodipine Besylate 5 Mg Tablet) 10 mg PO QDAY [facility] Stop: 01/20/25 10:14 Last Admin: 12/21/24 10:44 Dose: 10 mg Calcium Gluconate (Calcium Gluconate 10% Inj 1 Gm/10 Ml Vial) 1 gm IV X1 ONE Stop: 12/20/24 13:31 Last Admin: 12/20/24 14:25 Dose: 1 gm Dextrose (Dextrose 50%-Water Inj 50 Ml Syringe) 50 ml IVP X1 ONE Stop: 12/20/24 11:46 Last Admin: 12/20/24 12:13 Dose: 50 ml Dextrose (Dextrose 50%-Water Inj 50 Ml Syringe) 50 ml IVP X1 ONE Stop: 12/20/24 13:31 Last Admin: 12/20/24 14:31 Dose: 50 ml Fentanyl Citrate (Fentanyl Cit Inj 50 Mcg/Ml Amp 2ml) 125 mcg IVP X1 ONE Stop: 12/20/24 15:55 Last Admin: 12/20/24 15:54 Dose: 125 mcg Heparin Sodium (Beef Lung) (Heparin Sod Lock Syr 100 Unit/Ml) 500 unit IV X1 ONE Stop: 12/20/24 15:51 Last Admin: 12/20/24 15:50 Dose: 500 unit Heparin Sodium (Porcine) (Heparin Sod Inj 1000 Unit/Ml Vial 10 Ml) 3,500 unit INDWELLCAT X1 ONE Stop: 12/20/24 16:10 Last Admin: 12/20/24 16:25 Dose: 3,500 unit Hydroxyzine HCl (Hydroxyzine Hcl 25 Mg Tablet) 25 mg PO X1 ONE Stop: 12/21/24 17:01 Last Admin: 12/21/24 17:20 Dose: 25 mg Lactated Ringer's (Lactated Ringers) 1,000 mls @ 999 mls/hr IV .Q1H1M ONE Stop: 12/20/24 12:35 Last Infusion: 12/20/24 12:48 Dose: Infused Calcium Chloride 10 ml/ (Dextrose) 110 mls @ 110 mls/hr IV X1 ONE Stop: 12/20/24 12:44 Calcium Gluconate/Sodium Chloride (Calcium Gluc/Ns 1000mg Ivpb) 1,000 mg in 50 mls @ 50 mls/hr IV X1 ONE Stop: 12/20/24 12:59 Last Infusion: 12/20/24 13:36 Dose: Infused Nicardipine/Sodium Chloride (Cardene Ivpb) 20 mg in 200 mls @ 50 mls/hr IV .Q4H PRN; Protocol PRN Reason: PER PROTOCOL Stop: 01/19/25 12:40 Last Titration: 12/20/24 16:17 Dose: 0 mg/hr, 0 mls/hr Magnesium Sulfate (Magnesium Sulfate Ivpb) 2 gm in 50 mls @ 25 mls/hr IV X1 ONE Stop: 12/22/24 20:35 Last Admin: 12/22/24 19:01 Dose: 25 mls/hr Insulin Human Regular (Insulin Hum Regular 1 Unit/0.01 Ml (Per Unit)) 5 unit SC X1 ONE Stop: 12/20/24 11:46 Last Admin: 12/20/24 12:18 Dose: 5 unit Insulin Human Regular (Insulin Hum Regular 1 Unit/0.01 Ml (Per Unit)) 10 unit IV X1 ONE Stop: 12/20/24 13:31 Last Admin: 12/20/24 14:36 Dose: 10 unit Labetalol HCl (Labetalol Inj 5 Mg/Ml Vial 20 Ml) 10 mg IVP X1 ONE Stop: 12/20/24 11:22 Last Admin: 12/20/24 11:46 Dose: 10 mg Labetalol HCl (Labetalol Inj 5 Mg/Ml Vial 20 Ml) 10 mg IVP Q6HR PRN PRN Reason: SBP > 170 Stop: 01/19/25 17:05 Labetalol HCl (Labetalol Inj 5 Mg/Ml Vial 20 Ml) 10 mg IVP X1 ONE Stop: 12/21/24 18:33 Last Admin: 12/21/24 18:49 Dose: 10 mg Lidocaine HCl (Lidocaine Inj Pf 1% 30 Ml Vial) 11 ml INFL X1 ONE Stop: 12/20/24 15:57 Last Admin: 12/20/24 15:56 Dose: 11 ml Lorazepam (Lorazepam 0.5 Mg Tablet) 0.5 mg PO X1 ONE Stop: 12/20/24 12:49 Last Admin: 12/20/24 12:58 Dose: 0.5 mg Lorazepam (Lorazepam 0.5 Mg Tablet) 1 mg PO X1 ONE Stop: 12/21/24 11:58 Last Admin: 12/21/24 12:05 Dose: 1 mg Lorazepam (Lorazepam 0.5 Mg Tablet) 1 mg PO X1 ONE Stop: 12/21/24 15:13 Last Admin: 12/21/24 15:27 Dose: 1 mg Lorazepam (Lorazepam 0.5 Mg Tablet) 1 mg PO X1 ONE Stop: 12/23/24 09:07 Last Admin: 12/23/24 09:41 Dose: 1 mg Metoprolol Succinate (Metoprolol Succinate Xl 25 Mg Tabcr) 25 mg PO QDAY [facility] Stop: 01/21/25 08:59 Metoprolol Succinate (Metoprolol Succinate Xl 25 Mg Tabcr) 25 mg PO QDAY [facility] Stop: 01/21/25 08:24 Last Admin: 12/22/24 12:13 Dose: 25 mg Sodium Polystyrene Sulfonate (Sod Polystyrene Sulfon Susp 15 Gm/60 Ml Btl) 15 gm PO X1 ONE Stop: 12/20/24 11:46 Last Admin: 12/20/24 12:11 Dose: 15 gm Tuberculin PPD (Tuberculin Ppd Inj 5 Unit/0.1 Ml Dose) 5 unit ID X1 ONE Stop: 12/21/24 07:35 Last Admin: 12/21/24 12:07 Dose: 5 unit Assessment & Plan Plan 34 y/o with PMH of HTN on lisinopril and prior heavy alcohol use now sober, who presents to the hospital on 12/20/2024 due to High BP of 210/120, blurred vision, clamminess, and nausea without vomiting. Patient was admitted for emergent dialysis, hyperkalemia, hypertensive emergency. Nephrology has been consulted for management of hemodialysis. #Hypertensive Emergency #ASHLEE # on hemodialysis. #Renal complex cystic mass left #Uremia -On admission: BUN: 33, Cr:5.8, eGFR: 12 -Although patient's renal baseline is unknown, there is a risk of malignant nephrosclerosis in the setting of severe hypertension. However, given patient's renal status of persistently remaining in ASHLEE despite blood pressure control and hemodialysis, decided to proceed kidney biopsy to rule out other glomerular diseases. -No signs of volume overload on exam. On room air satting well. -CXR(12/20/2024): Right internal jugular dialysis catheter satisfactory position -BP: 159/79. BUN:35, Cr:6.0, eGFR:12 -Hemodialysis sessions: 12/20, 12/21, 12/22 -Renal US (12/22/2024): Right kidney 9.4 cm cortex 1.2 cm, Left kidney 9.8 cm cortex 1.7 cm, Complex cystic mass with vascularity in the mid left kidney 2.4 x 2.0 x 2.2 cm, No hydronephrosis, No bladder mass, Bladder prevoid volume 102 cc unable to void, Prostate 12 cc no prostate nodules Plan: -Monitor renal function -Maintain fluid restriction, avoid nephrotoxic agents when possible, renally dose medications -Strict i and o -Outpatient Hemodialysis chair -CT renal biopsy pending. -ANCA, anti GBM, BARRETT, DS DNA pending -Continue Coreg 6.25mg PO bid , Labetalol 10mg IV prn #Acute stroke left basal ganglia #Nonspecific periventricular white matter changes #Blurred vision, resolved #Anxiety #Trace pericardial effusion without tamponade per echo finding -Management per Primary Hospitalist team Thank you for allowing us to participate in the care of your patient. Assessment and plan discussed with my attending physician Dr. Emerald Kendall (PGY-1)- Internal medicine resident Attending Provider Attestation/Addendum patient currently seen and examined with resident physician Dr. Kendall. Note reviewed, agree with findings and recommendations. Patient currently seen in telemetry. Family at bedside. Patient admitted with ASHLEE. Not sure his baseline creatinine was. No labs for more than 3 years. Had a long conversation with , patient, mom, dad, friends around the bedside. Patient started having uncontrolled blood pressures for the last 3 months. Not feeling well. In the ED noted to have GFR of 9 and a potassium of 6.3. Patient was started on dialysis. Did receive 3 dialysis sessions under the care of Dr. Diaz. Family requested switching lead mechanical engineer as his is my patient. During workup he was noted to have tiny stroke Secondary to uncontrolled hypertension. Was started on aspirin and Plavix by Dr. Tinajero. Held this morning for need for biopsy. Patient urinalysis noted to have 3+ protein. Urine protein/creatinine nephrotic range proteinuria. Young person with ASHLEE-not sure if her blood pressure is a result or the cause of worsening renal function. Decided to proceed with biopsy to rule out other glomerular diseases such as FSGS. Patient agreed for biopsy. Spoke to Dr. Tamez-will do medical renal biopsy in a.m. for the right kidney. Spoke to Dr. Phillip agreed to hold Plavix for 1 day. Dialysis scheduled for tomorrow. Renal replacement therapy options including Hemodialysis, peritoneal dialysis and renal transplant options given to patient. For now he wants to continue with hemodialysis. Incidentally found 2 cm left renal mass-spoke to Dr Dickens-will see patient tomorrow. Probably needs workup as an outpatient. Time spent more than 45 minutes regarding plan of care and disease management. Spoke to primary team and Dr. Grady Thank you Cornelius for allowing me to participate in the care of Mr. Johnson.
--- NOTE | 2024-12-23 15:29 | ESPR_ITS ---
Documentation for date of: 12/23/24 Subjective Subjective Interval history: Patient was seen and examined at the bedside. No acute overnight events reported. All labs revealed hemoglobin stable at 11.5. Kidney functions remain the same creatinine 6.0. Phosphorus 5.9. Urine random total protein to 28. Complement levels are pending. Abdominal MRI showed Solid mass lateral margin left kidney, differential would include renal cell carcinoma. Nephrology is following. Agreeable to hold Plavix for a day for kidney biospy and contnue Aspirin daily with statin. Exam Vital Signs Temp Pulse Resp BP Pulse Ox O2 Del Method O2 Flow Rate 96.6 F L 94 17 159/79 H 92 L Room Air 2 12/23/24 12:00 12/23/24 13:12 12/23/24 12:00 12/23/24 13:12 12/23/24 12:00 12/23/24 12:00 12/20/24 16:20 Narrative Exam GENERAL APPEARANCE: AxOx4, generally well-appearing male in no acute distress. Saturating well on room air. HEENT: NC, AT. MMM. EOMI, clear conjunctiva, oropharynx clear. Flushing around cheeks. NECK: Supple without lymphadenopathy. No stiffness or restricted ROM. HEART: Sinus tachycardia with regular rhythm, normal S1/S2, no m/r/g LUNGS: CTAB, moving air well. No crackles or wheezes are heard. ABDOMEN: Soft, nontender, nondistended with good bowel sounds heard. BACK: No CVAT, no obvious deformity. EXTREMITIES: Without cyanosis, clubbing or edema. NEUROLOGICAL: Grossly nonfocal. Alert and oriented, moving all 4 extremities. CN not formally tested but appear grossly intact. Observed to ambulate with normal gait. Skin: Warm and dry without any rash. Psych: Mildly anxious however appropriate mood and affect Objective Labs 12/24/24 04:35 12/24/24 04:35 Labs: Laboratory Results - last 24 hr 12/22/24 12/23/24 18:50 04:23 WBC 10.3 RBC 3.71 L Hgb 11.5 L Hct 34.9 L MCV 94 MCH 31.0 MCHC 33.0 RDW Std Deviation 42.0 Plt Count 226 D Neut % (Auto) 59 Lymph % (Auto) 20 [place] % (Auto) 12 Eos % (Auto) 8 Baso % (Auto) 1 Neut # (Auto) 6.1 Lymph # (Auto) 2.0 [place] # (Auto) 1.2 H Eos # (Auto) 0.9 H Baso # (Auto) 0.1 Immature Gran # (Auto) 0.04 H Absolute Nucleated RBC 0.00 Immature Gran % 0 Nucleated RBC % 0 Sodium 139 Potassium 4.8 D Chloride 102 Carbon Dioxide 24.7 Anion Gap 12 BUN 35 H Creatinine 6.0 H* D Estim Creat Clear Calc 24.8 L eGFR 12 L* BUN/Creatinine Ratio 6 L Glucose 97 Calculated Osmolality 285 Calcium 9.3 Corrected Calcium 9.3 Phosphorus 5.9 H Magnesium 2.0 Total Bilirubin 0.3 AST 22 ALT 21 Alkaline Phosphatase 46 Total Protein 6.2 Albumin 4.1 Globulin 2.1 L Albumin/Globulin Ratio 2.0 Ur Random Creatinine 63 U Random Total Protein 228 H Quality Measures Quality Measures stroke Suspected type of Stroke: Acute Ischemic Tenecteplase given: Reason(s) Tenecteplase not given: Uncontrolled BP not given Rehab services: PT evaluation ordered VTE Prophylaxis: pharmaceutical (Heparin sc ) Antithrombotic by day 2:: not indicated (describe) Statin ordered: <75 y/o high intensity dose Anticoagulation ordered for A-fib or flutter (current or hx): not indicated Assessment & Plan Assessment Current Active Medications: Generic Name Dose Route Start Last Admin Trade Name Freq PRN Reason Stop Dose Admin Acetaminophen 650 mg 12/20/24 14:40 Acetaminophen 325 Mg Tablet PO 01/19/25 14:39 Q6H PRN Fever >100.1 or pain Aspirin 81 mg 12/20/24 15:45 12/22/24 12:01 Aspirin Ec 81 Mg Tabec PO 01/19/25 15:44 81 mg On Hold: 12/22/24 18:32 DAILY SHEYLA Administration Atorvastatin Calcium 40 mg 12/22/24 21:00 12/22/24 20:14 Atorvastatin Calcium 20 Mg Tablet PO 01/21/25 20:59 40 mg HS SHEYLA Administration Carvedilol 6.25 mg 12/22/24 17:30 12/23/24 13:12 Carvedilol 3.125 Mg Tablet PO 01/21/25 17:29 6.25 mg BIDWM SHEYLA Administration Clopidogrel Bisulfate 75 mg 12/22/24 13:45 12/22/24 14:34 Clopidogrel Bisulfate 75 Mg Tablet PO 01/21/25 13:44 75 mg On Hold: 12/22/24 18:32 QDAY SHEYLA Administration Heparin Sodium (Porcine) 3,500 unit 12/20/24 21:40 12/22/24 10:49 Heparin Sod Inj 1000 Unit/Ml Vial 10 Ml INDWELLCAT 01/03/25 21:39 3,500 unit PRN PRN Administration DIALYSIS Albumin Human 25 gm in 100 mls @ 100 mls/min 12/20/24 14:52 Albuminar-25 Ivpb IV PRN PRN DIALYSIS Labetalol HCl 10 mg 12/21/24 06:25 12/22/24 00:27 Labetalol Inj 5 Mg/Ml Vial 20 Ml IVP 01/20/25 06:24 10 mg X1 PRN Administration SBP > 170, DBP >100 Ondansetron HCl 4 mg 12/20/24 14:40 12/20/24 16:18 Ondansetron Inj 2 Mg/Ml Inj 2 Ml IVP 01/19/25 14:39 4 mg Q6H PRN Administration NAUSEA OR VOMITING Protocol Sennosides 1 tab 12/20/24 14:40 Senna Tablet PO 01/19/25 14:39 QDAY PRN constipation Protocol Sodium Chloride 3 ml 12/21/24 07:24 Sodium Chloride Rt La 0.9% 3 Ml Nebu INH 01/20/25 07:23 PRN PRN SOLN Plan 34 yom with a h/o htn on lisinopril who presents to the ED with blurred vision, clamminess, and weakness, found to be hypertensive with systolics at the 200s, K of 6.3 and Cr of 8.5, admitted for emergent dialysis and hypertensive emergency. Recieved HD that same evening. Morning labs on 12/21 still showed elevated K, BUN, and Cr of 5.4, 53, and 7.3 respectively. Repeated dialysis this morning. #Acute stroke left basal ganglia #Nonspecific periventricular white matter changes #Blurred vision, resolved Patient reporting blurred vision for the last 2 weeks. Slurred speech the day of admission which resolved. Saw an adult basic education manager on 12/20 (day of admission) who noted macular edema and recommending retinal specialist. This may be from chronic hypertensive changes. Also considering PRES as possible differential especially for the transient slurred speech. CT brain and head and neck CTA are negative for acute changes. Patient's symptoms have subsided in terms of blurred vision. No acute focal neurological deficits noted. Echocardiogram showed EF 55 to 60%. Mildly dilated LA. Trace pericardial effusion without tamponade. Brain MRI showed nonspecific periventricular white matter changes consistent with high blood pressure and acute stroke in left basal ganglia. Family was informed regarding the imaging results. Plan: Agreeable to hold Plavix for a day for kidney biospy and contnue Aspirin daily with statin. Recommended to continue aspirin 81 mg daily, and atorvastatin 40 mg at night indefinite.Plavix 75 mg for 21 days upon DC He will likely benefit with another repeat echo as an outpatient within 3 months. Follow-up with neurologist as outpatient #Solid mass left lateral margin of kidney per MRI abdomen #Anxiety #Trace pericardial effusion without tamponade per echo finding #Hypertensive Emergency #ASHLEE on dialysis #Hyperkalemia #Uremia #Complex Renal Cyst Rest of the management as per primary care team. Plan of care discussed with neurologist, Dr Tanvi Aviles MD PGY3 Attending Provider Attestation/Addendum I personally have seen and examined the patient at the bedside and agree with resident's findings, assessment and plan of care. Patient is stable without any focal neurological deficit. No new symptoms reported. Agreeable to do kidney biopsy without antiplatelet agents on board.
--- NOTE | 2024-12-23 15:53 | PC.SS ---
Follow up note: SS faxed TB results and latest flow sheets to [facility] of [facility] Patient pending chair time
[2024-12-23] MEDS: NIFEdipine XL 30 MG TABCR 60 MG PO (16:31)
--- NOTE | 2024-12-23 16:55 | EVENTNT_ITS ---
Documentation for date of: 12/23/24 Event Note Event Note: Patient requested to change Management Scientist. Discussed with the hospitalist. Dr. Corbin is called by hospitalist for second opinion and take over the care. Labs are reviewed. MRI showing renal mass, recommend urology consultation. Dr. Corbin will follow the patient. Dr. Corbin will follow the investigations. There was a plan to do biopsy today. I was told by RN that biopsy will done tomorrow. Dr Corbin to follow-up kidney biopsy. I will also call Dr. Corbin and gave her signout.
[2024-12-24] VITALS (29 sets, daily range): BP systolic 117–159; BP diastolic 63–109; PULSE 45–106; RESP 13–20; TEMP 36.1–36.8; O2SAT 95–99; BMI 33.7
[2024-12-24 06:03] LABS: Basophils # (Auto) 0.1 Thou/mm3 (0.0-0.2); Basophils % (Auto) 2 % (0-2.5); Eosinophils # (Auto) 0.8 Thou/mm3 (0.0-0.5); Eosinophils % (Auto) 10 % (0-10); Hematocrit 32.4 % (41.0-53.0); Hemoglobin 11.0 g/dL (13.5-16.0); Immature Granulocytes Auto 0.03 Thou/mm3 (0.00-0.00); Lymphocytes # (Auto) 2.1 Thou/mm3 (1.0-4.8); Lymphocytes % (Auto) 24 % (10-50); Mean Corpuscular HGB Conc 34.0 g/dl (31.0-37.0); Mean Corpuscular Hemoglobin 31.4 pg (25.0-35.0); Mean Corpuscular Volume 93 fL (80-100); Monocytes # (Auto) 0.9 Thou/mm3 (0.0-0.8); Monocytes % (Auto) 10 % (0-12); Neutrophils # (Auto) 4.9 Thou/mm3 (1.8-7.7); Neutrophils % (Auto) 55 % (37-80); Nucleated Red Blood Cell # 0.00 Thou/mm3 (0.00-0.00); Nucleated Red Blood Cell % 0 /100 WBC (0); Platelet Count 215 Thou/mm3 (140-440); RDW Standard Deviation 40.6 fL (35.1-43.9); Red Blood Count 3.50 Miln/mm3 (4.50-5.90); White Blood Count 8.8 Thou/mm3 (3.8-10.6)
[2024-12-24 06:31] LABS: INR 1.0 (0.9-1.3); Prothrombin Time 10.7 Seconds (9.0-12.2)
[2024-12-24 06:35] LABS: DNA (ds) Antibody* <1 IU/mL; Glomerular Basemt Memb Ab IGG* <1.0 AI (<1.0)
[2024-12-24 06:39] LABS: Alanine Aminotransferase 22 U/L (10-49); Albumin, Serum 3.9 gm/dL (3.5-5.0); Albumin/Globulin Ratio 1.9 (1.2-2.2); Alkaline Phosphatase 45 U/L (46-116); Anion Gap 15 (7-16); Aspartate Amino Transferase 23 U/L (0-34); BUN/Creatinine Ratio 7 Ratio (12-20); Bilirubin,Total 0.2 mg/dL (0.3-1.2); Blood Urea Nitrogen 54 mg/dL (9-23); Calcium 9.5 mg/dL (8.3-10.6); Calcium (Corrected) 9.6 mg/dL (8.5-10.1); Carbon Dioxide 23.4 mMol/L (20.0-31.0); Chloride 104 mMol/L (98-107); Creatinine (Component) 7.8 mg/dL (0.6-1.3); Estimated Creatinine Clearance 19.1 mL/min (>60); Globulin 2.1 gm/dL (2.3-3.5); Glucose 97 mg/dL (74-106); Osmolality,Calculated 297 (275-295); Potassium 4.8 mMol/L (3.4-5.1); Sodium 142 mMol/L (136-145); Total Protein 6.0 gm/dL (5.7-8.2); eGFR 9 See Note
--- NOTE | 2024-12-24 07:09 | ESPR_ITS ---
Documentation for date of: 12/24/24 Subjective Subjective Interval history: 34 y/o with PMH of HTN on lisinopril and prior heavy alcohol use now sober, who presents to the hospital on 12/20/2024 due to High BP of 210/120, blurred vision, clamminess, and nausea without vomiting. 2 weeks of blurred vision, weaker urinary streams, felt nauseated, and began to experience slurred speech. Denies chest pain, palpation, SOB, abdominal pain, fevers or chills. Patient was admitted for emergent dialysis, hyperkalemia, hypertensive emergency. Nephrology has been consulted for management of hemodialysis. ED Course: -Patient presented with BP 201/127, repeat 194/120 HR 106, T 98, RR 18, O2 98% on RA. -Labs notable for WBC 11.1 Hgb 11.7, K 5.8, BUN 81 Cr 8.7, GFR 8. -Repeat labs: K 6.3, BUN 80, Cr 8.5, -CT head and CTA neck were negative. EKG notable LVH by voltage criteria and non specific ST changes. Renal US was negative for hydronephrosis but noted a complex cystic structure on the left kidney with cortical thinning. -Patient was given Labetolol 10 mg, SPS, albuterol, Insulin 5U then Insulin 10U after the repeat renal panel, Calcium gluconate 1g which was also repeated, and started on Nicardipine drip. BP improved to 126/75 and nicardipine drip was stopped. -Nephrology consulted, recommended emergent dialysis. Patient seen by Dr. Diaz. -Patient was taken to IR for dialysis catheter placement. -Admitted for emergent dialysis, hyperkalemia, hypertensive emergency. PMHX: HTN PSHx: Hernia repair at 5yo Meds: Lisinopril, OTC ibuprofen, naproxen, both a couple times per week. Takes bilberry lutein supplement. 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 12/23/2024: Entire family at bedside. Labs reviewed and patient examined at the bedside. BUN: 35, Cr:6.0, eGFR:12. Patient noted it has been a long time he did lab work. Baseline before admission is currently unknown. In regards to nephrology consultation, the patient and his family elected to transition care from Dr. Diaz to Dr. Corbin. While the patient did not provide a specific reason, they expressed that Dr. Corbin felt more well-rounded. Although patient's renal baseline is unknown, there is a risk of malignant nephrosclerosis in the setting of severe hypertension. However, given patient's renal status of persistently remaining in ASHLEE despite blood pressure control and needing hemodialysis, decided to proceed with kidney biopsy to rule out underlying glomerular disease. Patient agrees to continue with hemodialysis in outpatient setting. Received dialysis on 12/20. 9/. 12/22. Currently pending outpatient dialysis chair. Patient currently has no symptoms to report. 12/24/2024: Labs reviewed and patient examined at the bedside. Patient's blood pressure was high this morning 159/99. Patient planned to get right renal biopsy this morning then hemodialysis session afterwarrds. Will start on blood thinners tomorrow for managment of stroke. Will be okay to discharge tomorrow once outpatient dialysis chair has been set. Currently waiting insurance approval for outpatient hemodialysis. BUN: 54, Cr:7.8, eGFR:9 Exam Vital Signs Temp Pulse Resp BP Pulse Ox O2 Del Method O2 Flow Rate 98.2 F 92 13 159/99 H 98 Room Air 2 12/24/24 04:00 12/24/24 04:00 12/24/24 04:00 12/24/24 04:00 12/24/24 04:00 12/24/24 04:00 12/20/24 16:20 Narrative Exam General: No acute distress, well nourished, AAO x3 Eye: PERRL, EOMI, normal conjunctiva, no scleral icterus HENT: Normocephalic, atraumatic, hearing intact to conversation at normal volume, moist oral mucosa Neck: Supple, non-tender, no JVD, no lymphadenopathy Lungs: Non-labored respirations, symmetric chest rise, Clear to auscultate bilaterally, No wheezing, rhonchi, crackles Heart: Peripheral pulses intact bilaterally, Regular Rate and Rhythm. Abdomen: Soft, non-tender, non-distended, no palpable mass, Righ IJ permanent tunneled dialysis catheter. Musculoskeletal: Normal range of motion and strength, No cyanosis or edema, No visible joint swelling Skin: Skin is warm, dry, no rashes or lesions. Psychiatric: Cooperative, appropriate mood and affect, Awake and alert, not agitated patient seems to be anxious. Neuro: Cranial nerves II-XII grossly intact. Strength 5/5 throughout. Sensations intact to light touch. Objective Labs 12/25/24 02:55 12/25/24 02:55 Labs: Laboratory Results - last 24 hr 12/20/24 12/24/24 15:07 04:35 WBC 8.8 RBC 3.50 L Hgb 11.0 L Hct 32.4 L MCV 93 MCH 31.4 MCHC 34.0 RDW Std Deviation 40.6 Plt Count 215 Neut % (Auto) 55 Lymph % (Auto) 24 [place] % (Auto) 10 Eos % (Auto) 10 Baso % (Auto) 2 Neut # (Auto) 4.9 Lymph # (Auto) 2.1 [place] # (Auto) 0.9 H Eos # (Auto) 0.8 H Baso # (Auto) 0.1 Immature Gran # (Auto) 0.03 H Absolute Nucleated RBC 0.00 Immature Gran % 0 Nucleated RBC % 0 PT 10.7 INR 1.0 Sodium 142 Potassium 4.8 Chloride 104 Carbon Dioxide 23.4 Anion Gap 15 BUN 54 H Creatinine 7.8 H* D Estim Creat Clear Calc 19.1 L eGFR 9 L* BUN/Creatinine Ratio 7 L Glucose 97 Calculated Osmolality 297 H Calcium 9.5 Corrected Calcium 9.6 Total Bilirubin 0.2 L AST 23 ALT 22 Alkaline Phosphatase 45 L Total Protein 6.0 Albumin 3.9 Globulin 2.1 L Albumin/Globulin Ratio 1.9 Double Strand DNA Ab <1 Glomerular Base Memb Ab <1.0 Quality Measures Quality Measures stroke Suspected type of Stroke: Acute Ischemic Tenecteplase given: Reason(s) Tenecteplase not given: Uncontrolled BP not given Rehab services: PT evaluation ordered VTE Prophylaxis: pharmaceutical Antithrombotic by day 2:: ordered Statin ordered: <75 y/o high intensity dose Anticoagulation ordered for A-fib or flutter (current or hx): ordered Assessment & Plan Assessment Current Active Medications: Generic Name Dose Route Start Last Admin Trade Name Freq PRN Reason Stop Dose Admin Acetaminophen 650 mg 12/20/24 14:40 Acetaminophen 325 Mg Tablet PO 01/19/25 14:39 Q6H PRN Fever >100.1 or pain Aspirin 81 mg 12/20/24 15:45 12/22/24 12:01 Aspirin Ec 81 Mg Tabec PO 01/19/25 15:44 81 mg On Hold: 12/22/24 18:32 DAILY SHEYLA Administration Atorvastatin Calcium 40 mg 12/22/24 21:00 12/23/24 20:22 Atorvastatin Calcium 20 Mg Tablet PO 01/21/25 20:59 Not Given HS SHEYLA Carvedilol 6.25 mg 12/22/24 17:30 12/23/24 18:10 Carvedilol 3.125 Mg Tablet PO 01/21/25 17:29 6.25 mg BIDWM SHEYLA Administration Clopidogrel Bisulfate 75 mg 12/22/24 13:45 12/22/24 14:34 Clopidogrel Bisulfate 75 Mg Tablet PO 01/21/25 13:44 75 mg On Hold: 12/22/24 18:32 QDAY SHEYLA Administration Heparin Sodium (Porcine) 3,500 unit 12/20/24 21:40 12/22/24 10:49 Heparin Sod Inj 1000 Unit/Ml Vial 10 Ml INDWELLCAT 01/03/25 21:39 3,500 unit PRN PRN Administration DIALYSIS Albumin Human 25 gm in 100 mls @ 100 mls/min 12/20/24 14:52 Albuminar-25 Ivpb IV PRN PRN DIALYSIS Labetalol HCl 10 mg 12/21/24 06:25 12/22/24 00:27 Labetalol Inj 5 Mg/Ml Vial 20 Ml IVP 01/20/25 06:24 10 mg X1 PRN Administration SBP > 170, DBP >100 Lorazepam 1 mg 12/23/24 22:04 Lorazepam 0.5 Mg Tablet PO X1 PRN ANXIETY Melatonin 6 mg 12/23/24 21:00 12/23/24 20:37 Melatonin 3 Mg Tablet PO 01/22/25 20:59 Not Given HS SHEYLA Nifedipine 60 mg 12/23/24 15:30 12/23/24 16:31 Nifedipine Xl 30 Mg Tabcr PO 01/22/25 15:29 60 mg QDAY SHEYLA Administration Ondansetron HCl 4 mg 12/20/24 14:40 12/20/24 16:18 Ondansetron Inj 2 Mg/Ml Inj 2 Ml IVP 01/19/25 14:39 4 mg Q6H PRN Administration NAUSEA OR VOMITING Protocol Sennosides 1 tab 12/20/24 14:40 Senna Tablet PO 01/19/25 14:39 QDAY PRN constipation Protocol Sodium Chloride 3 ml 12/21/24 07:24 Sodium Chloride Rt La 0.9% 3 Ml Nebu INH 01/20/25 07:23 PRN PRN SOLN Plan 34 y/o with PMH of HTN on lisinopril and prior heavy alcohol use now sober, who presents to the hospital on 12/20/2024 due to High BP of 210/120, blurred vision, clamminess, and nausea without vomiting. Patient was admitted for emergent dialysis, hyperkalemia, hypertensive emergency. Nephrology has been consulted for management of hemodialysis. #Hypertensive Emergency #ASHLEE # on hemodialysis. #Renal complex cystic mass left #Uremia -On admission: BUN: 33, Cr:5.8, eGFR: 12 -Although patient's renal baseline is unknown, there is a risk of malignant nephrosclerosis in the setting of severe hypertension. However, given patient's renal status of persistently remaining in ASHLEE despite blood pressure control and hemodialysis, decided to proceed kidney biopsy to rule out other glomerular diseases. -No signs of volume overload on exam. On room air satting well. -CXR(12/20/2024): Right internal jugular dialysis catheter satisfactory position -BP: 159/99. BUN:54, Cr:7.8, eGFR:9 -Hemodialysis sessions: 12/20, 12/21, 12/22 -Renal US (12/22/2024): Right kidney 9.4 cm cortex 1.2 cm, Left kidney 9.8 cm cortex 1.7 cm, Complex cystic mass with vascularity in the mid left kidney 2.4 x 2.0 x 2.2 cm, No hydronephrosis, No bladder mass, Bladder prevoid volume 102 cc unable to void, Prostate 12 cc no prostate nodules Plan: -Monitor renal function -Maintain fluid restriction, avoid nephrotoxic agents when possible, renally dose medications -Strict i and o -Outpatient Hemodialysis chair -CT renal biopsy pending. -ANCA, anti GBM, BARRETT, DS DNA pending -Continue Coreg 6.25mg PO bid , Labetalol 10mg IV prn -Planned for right renal biopsy then Hemodialysis today #Acute stroke left basal ganglia #Nonspecific periventricular white matter changes #Blurred vision, resolved #Anxiety #Trace pericardial effusion without tamponade per echo finding -Management per Primary Hospitalist team Thank you for allowing us to participate in the care of your patient. Assessment and plan discussed with my attending physician Dr. Emerald Kendall (PGY-1)- Internal medicine resident Attending Provider Attestation/Addendum patient currently seen and examined with resident physician Dr. Kendall. Note reviewed, agree with findings and recommendations. Patient currently seen in telemetry. Family at bedside. Patient admitted with ASHLEE. Not sure his baseline creatinine was. No labs for more than 3 years. Had a long conversation with , patient, mom, dad, friends around the bedside. Patient started having uncontrolled blood pressures for the last 3 months. Not feeling well. In the ED noted to have GFR of 9 and a potassium of 6.3. Patient was started on dialysis. Did receive 3 dialysis sessions under the care of Dr. Diaz. 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 During workup he was noted to have tiny stroke Secondary to uncontrolled hypertension. Was started on aspirin and Plavix by Dr. Tinajero. Held this morning for need for biopsy. Patient urinalysis noted to have 3+ protein. Urine protein/creatinine nephrotic range proteinuria. Young person with ASHLEE-not sure if her blood pressure is a result or the cause of worsening renal function. Decided to proceed with biopsy to rule out other glomerular diseases such as FSGS. Patient agreed for biopsy. Spoke to Dr. Tamez-will do medical renal biopsy today. for the right kidney. Spoke to Dr. Tinajero agreed to hold Plavix for 1 day. Renal replacement therapy options including Hemodialysis, peritoneal dialysis and renal transplant options given to patient. For now he wants to continue with hemodialysis. Incidentally found 2 cm left renal mass-spoke to Dr Dickens-will see patient today. Probably needs workup as an outpatient. Time spent more than 45 minutes regarding plan of care and disease management. Patient currently seen on dialysis. Tolerating dialysis without any problems. Hemodialysis for 3 hours, 2K, ultrafiltration 0 L, Epogen 6000, no heparin ordered. Plan of care discussed with the dialysis nurse. Please see dialysis flowsheet for further details. Patient has outpatient dialysis arranged at [facility]. Can be discharged tomorrow. Spoke to primary team and Dr. Grady
--- NOTE | 2024-12-24 08:00 | XR_ITS ---
Examination: CT-guided percutaneous medical renal biopsy lower pole right kidney CT abdomen without intravenous contrast Date and time of procedure: December 24, 2024 0947 hours INDICATIONS: Acute renal insufficiency on laboratory examination this week Informed consent provided. A timeout was completed verifying correct patient, procedure, site and positioning. Indications: Lymphadenopathy. Technique: Axial 3 mm sections were obtained for localization of the lower pole right kidney Appropriate area is marked. The patient's site was prepped and draped in sterile fashion Maximal sterile barrier technique utilized, including hand hygiene Local anesthesia was obtained with 1% lidocaine. Low dose protocols were performed. One or more of the following dose reduction techniques were used; automated exposure control, adjustment of the mA and/or KV according to patient size, use of iterative reconstruction technique. Utilizing CT fluoroscopic guidance 2 core biopsies obtained for pole right kidney, specimens deemed adequate by the pathologist Patient appears in stable condition during this procedure. At completion of the procedure, the patient is in satisfactory condition. Estimated blood loss 3 cc 0 cc Complete pathology report to follow. Impression: Successful CT-guided medical renal biopsy lower pole right kidney
[2024-12-24] MEDS: NIFEdipine XL 30 MG TABCR 60 MG PO (08:32)
--- NOTE | 2024-12-24 08:53 | PC.SS ---
SS followed up with [facility]psey in regards to Fax yesterday, Dona confirmed all information was received, SS waiting on a call back from ALICIA Morse, Charge Nurse for update on Chair Time.
--- NOTE | 2024-12-24 08:56 | PC.SS ---
Rounding: Pending BX today and chair time for outpt HD
--- NOTE | 2024-12-24 09:22 | PC.SS ---
Addendum entered by Hao Siu 12/24/24 10:25: SS met with pt at BS to provide chair time info , Svetlana Jimenez [phone]. Per Svetlana, pt wants Dr. Corbin not Dr. Diaz. SS called [facility] and spoke to Mini who sated Dr. Corbin follows pt at their clinic as well. We just need to confirm with Dr. Corbin she is okay with that plan. SS spoke to Dr. Duncan and Team A who called Dr. Corbin and she wishes for pt to go to [facility]. SS called [facility] and spoke to Tana who stated they have worked on pt admission and his chair time is TTHSAT 10am, they requested flowsheets to be submitted. SS utilized [employer] Fax and sent updated flowsheets. SS updated information for pt and and printed it for them. SS updated at bs who was very happy about change and update. Plan for pt to get HD after BX and pt will be able to DC home after with first chair being 12/28 at 0945 at [facility] Ke. ARSH Saldaña updated as well. Original Note: CHAIR TIME: T-TH-SAT 1115am ALIC[facility] Dempsey First Chair 12/28/24 at 11am Pt to be dialyzed here prior to DC as clinic can NOT see him for 1st chair on a Friday. Dr. Licona made aware.
[2024-12-24] MEDS: fentaNYL CIT INJ 50 mCg/ML AMP 2ML 100 MCG IVP (10:04)
[2024-12-24] MEDS: HYDROmorphone INJ 2 MG/ML VIAL 1 MG IVP (11:16)
--- NOTE | 2024-12-24 12:09 | ESPR_ITS ---
<Statement entered by Mirella Licona MD - 12/24/24 14:53> Patient examined at bedside. Hemoglobin stable at 11. He is status post right renal biopsy. Complaining of pain from the biopsy. Patient to receive hemodialysis session today. Will monitor for any bleeding from site of the biopsy. If patient remains stable, anticipate discharge tomorrow. He will resume dialysis next Friday at [facility] with Dr. Corbin. Resume aspirin and Plavix on Friday as recommended by IR. Blood pressure control improving --initially from 180 systolic to 130?140. Continue nifedipine 60 mg and Coreg 6.25BID. The patient's management plan was discussed with my attending physician Dr. Duncan. Mirella Licona, PGY-2 Documentation for date of: 12/24/24 Subjective Subjective Interval history: 34 yom with a h/o htn on lisinopril who presents to the ED on 12/20/2024 with blurred vision, clamminess, and weakness, found to be hypertensive with systolics at the 200s, K of 6.3 and Cr of 8.5, admitted for emergent dialysis and hypertensive emergency. CT head and CTA were negative for stroke, but MRI brain on subsequent day demonstrated periventricular white matter changes consistent with high blood pressure and acute stroke in left basal ganglia. Neurology consulted in the ED for stroke workup, recommended aspirin, plavix 21 days, and atorvastatin. Initial work up in the ED included a CLARICE which showed bilateral cortical thinning and a left complex renal cyst. MRI Abdomen was done for futher characterization and demonstrated a solid mass lateral margin left kidney, 24 x 20 mm. Urology was consulted for further recommendations. 12/24: Patient examined at bedside, NAOE aside from occasional bigeminy on telemetry which has been present since admission. Dr. Corbin with nephrology recommending right renal biopsy for continued nephropathy work up which was done today. Pending urology work up for the renal mass. Still holding aspirin and plavix for renal biopsy, hold until Tuesday 12/26 per radiology recommendations. BP still elevated with systolics in the 130s to 150s. On Nifedipine 60 mg which was started yesterday, and carvedilol 6.25mg BID. Working with social media content specialist to secure an outpatient dialysis chair. Exam Vital Signs Temp Pulse Resp BP Pulse Ox O2 Del Method O2 Flow Rate 98.0 F 89 20 119/63 99 Room Air 2 12/24/24 11:10 12/24/24 11:10 12/24/24 11:10 12/24/24 11:10 12/24/24 11:10 12/24/24 11:10 12/24/24 10:23 Narrative Exam General: Patient sitting up in bed, conversational, no acute distress. HEENT: Mucosa moist, no oropharyngeal lesions. Dialysis catheter in place in the right side of the neck. Pupils are equal and reactive to light bilaterally, no scleral icterus or injection. No periorbital edema. Cardiovascular: regular rate and rhythm, Respiratory: Clear to auscultation bilaterally without wheezes or crackles. Abdomen: Soft, nontender, not distended, Skin: Dry, rosangela cheeks with telangiectasias, no petechiae or purpura noted. Musculoskeletal: No gross injuries. Able to move all 4 extremities. Non edematous lower extremities. Neuro: Alert and oriented x3. No focal neuro deficits Objective Labs 12/25/24 02:55 12/25/24 02:55 Labs: Laboratory Results - last 24 hr 12/20/24 12/24/24 15:07 04:35 WBC 8.8 RBC 3.50 L Hgb 11.0 L Hct 32.4 L MCV 93 MCH 31.4 MCHC 34.0 RDW Std Deviation 40.6 Plt Count 215 Neut % (Auto) 55 Lymph % (Auto) 24 [place] % (Auto) 10 Eos % (Auto) 10 Baso % (Auto) 2 Neut # (Auto) 4.9 Lymph # (Auto) 2.1 [place] # (Auto) 0.9 H Eos # (Auto) 0.8 H Baso # (Auto) 0.1 Immature Gran # (Auto) 0.03 H Absolute Nucleated RBC 0.00 Immature Gran % 0 Nucleated RBC % 0 PT 10.7 INR 1.0 Sodium 142 Potassium 4.8 Chloride 104 Carbon Dioxide 23.4 Anion Gap 15 BUN 54 H Creatinine 7.8 H* D Estim Creat Clear Calc 19.1 L eGFR 9 L* BUN/Creatinine Ratio 7 L Glucose 97 Calculated Osmolality 297 H Calcium 9.5 Corrected Calcium 9.6 Total Bilirubin 0.2 L AST 23 ALT 22 Alkaline Phosphatase 45 L Total Protein 6.0 Albumin 3.9 Globulin 2.1 L Albumin/Globulin Ratio 1.9 Double Strand DNA Ab <1 Glomerular Base Memb Ab <1.0 Quality Measures Quality Measures stroke Suspected type of Stroke: Acute Ischemic Tenecteplase given: Reason(s) Tenecteplase not given: Uncontrolled BP not given Rehab services: PT evaluation ordered VTE Prophylaxis: mechanical Antithrombotic by day 2:: contraindicated (describe) Statin ordered: <75 y/o high intensity dose Anticoagulation ordered for A-fib or flutter (current or hx): not indicated Assessment & Plan Assessment Current Active Medications: Generic Name Dose Route Start Last Admin Trade Name Freq PRN Reason Stop Dose Admin Acetaminophen 650 mg 12/20/24 14:40 Acetaminophen 325 Mg Tablet PO 01/19/25 14:39 Q6H PRN Fever >100.1 or pain Aspirin 81 mg 12/20/24 15:45 12/22/24 12:01 Aspirin Ec 81 Mg Tabec PO 01/19/25 15:44 81 mg On Hold: 12/22/24 18:32 DAILY SHEYLA Administration Atorvastatin Calcium 40 mg 12/22/24 21:00 12/23/24 20:22 Atorvastatin Calcium 20 Mg Tablet PO 01/21/25 20:59 Not Given HS SHEYLA Carvedilol 6.25 mg 12/22/24 17:30 12/24/24 08:31 Carvedilol 3.125 Mg Tablet PO 01/21/25 17:29 6.25 mg BIDWM SHEYLA Administration Clopidogrel Bisulfate 75 mg 12/22/24 13:45 12/22/24 14:34 Clopidogrel Bisulfate 75 Mg Tablet PO 01/21/25 13:44 75 mg On Hold: 12/22/24 18:32 QDAY SHEYLA Administration Heparin Sodium (Porcine) 3,500 unit 12/20/24 21:40 12/22/24 10:49 Heparin Sod Inj 1000 Unit/Ml Vial 10 Ml INDWELLCAT 01/03/25 21:39 3,500 unit PRN PRN Administration DIALYSIS Albumin Human 25 gm in 100 mls @ 100 mls/min 12/20/24 14:52 Albuminar-25 Ivpb IV PRN PRN DIALYSIS Labetalol HCl 10 mg 12/21/24 06:25 12/22/24 00:27 Labetalol Inj 5 Mg/Ml Vial 20 Ml IVP 01/20/25 06:24 10 mg X1 PRN Administration SBP > 170, DBP >100 Lorazepam 1 mg 12/23/24 22:04 Lorazepam 0.5 Mg Tablet PO X1 PRN ANXIETY Melatonin 6 mg 12/23/24 21:00 12/23/24 20:37 Melatonin 3 Mg Tablet PO 01/22/25 20:59 Not Given HS SHEYLA Nifedipine 60 mg 12/23/24 15:30 12/24/24 08:32 Nifedipine Xl 30 Mg Tabcr PO 01/22/25 15:29 60 mg QDAY SHEYLA Administration Ondansetron HCl 4 mg 12/20/24 14:40 12/20/24 16:18 Ondansetron Inj 2 Mg/Ml Inj 2 Ml IVP 01/19/25 14:39 4 mg Q6H PRN Administration NAUSEA OR VOMITING Protocol Sennosides 1 tab 12/20/24 14:40 Senna Tablet PO 01/19/25 14:39 QDAY PRN constipation Protocol Sodium Chloride 3 ml 12/21/24 07:24 Sodium Chloride Rt La 0.9% 3 Ml Nebu INH 01/20/25 07:23 PRN PRN SOLN Plan 34 yom with a h/o htn on lisinopril who presents to the ED with blurred vision, clamminess, and weakness, found to be hypertensive with systolics at the 200s, K of 6.3 and Cr of 8.5, admitted for emergent dialysis and hypertensive emergency. Recieved HD that same evening. Morning labs on 12/21 still showed elevated K, BUN, and Cr of 5.4, 53, and 7.3 respectively. Repeated dialysis this morning. #Acute renal injury requiring dialysis #Hypertensive Emergency-resovled #Hyperkalemia-resolved #Uremia-resolved Patient's blood pressure has been persistently elevated, highest being 201/127, K of 6.3, BUN 80, Cr of 8.5, eGFR 8. UA had 2+ protein, 1 RBC and 1 WBC. Renal US showed cortical thinning. Patient was given Labetolol 10 mg, SPS, albuterol, Insulin 5U then Insulin 10U after the repeat renal panel, Calcium gluconate 1g which was also repeated, and started on Nicardipine drip in the ED. Severe htn is the likely cause of the ASHLEE, but intrinsic renal cause is also possibility. Also considering the possibility of medication non-adherence with lisinopril as a possible cause of chronic deterioration. U Na and U Cr both wnl at 68 and 55 respectively. UA did not show significant protein or blood, making nephrotic and nephritic syndromes lower on the differential. Renal cortical thinning suggests a possible chronic process that may have decompensated today, possibly longstanding severe htn. High suspicion of CKD due to poorly controlled hypertension. Will continue inpatient HD until outpatient chair arranged. Pending PPD results as well. -Appreciate nephrology recommendations. ANCA, anti GBM, BARRETT, pending DS DNA and anti-GBMnegative -nifedipine 60mg daily. -start coreg 6.25mg BID -Dr Corbin now seeing patient per family's request. Renal biopsy obtained, appreciate Dr Trinh. -HD sessions per nephrology recommendations. -Renal diet. #Acute ischemic stroke Patient reporting blurred vision for the last 2 weeks. Slurred speech the day of admission which resolved. Saw an preparer samples and repairs on 12/20 (day of admission) who noted macular edema and recommending retinal specialist. This may be from chronic hypertensive changes. Also considering PRES as possible differential especially for the transient slurred speech. MRI Brain showed nonspecific periventricular white matter changes consistent with high blood pressure and acute stroke in left basal ganglia. - Start patient on aspirin 81 mg daily (aspirin to be continued indefinitely) - Plavix 75 mg daily (for 21 days) - Atorvastatin 40 mg at bedtime (continue indefinitely) - repeat echo as an outpatient within 3 months - Holding aspirin and plavix until 12/26, due to renal biopsy on 12/24. #Anxiety #Difficulty sleeping Longstanding history of moderate anxiety, had been on chlordiazepam for this in the past but has not used it in 3 years. Used to be followed by PCP for this at that time but is switching PCPs currently due to insurance change. It is possible that his untreated anxiety has elevated his BP to severe levels chronically and have contributed to his htn. Having trouble sleeping at night as well, requesting ativan. -Melatonin 6mg HS initially. -Lorazepam 1 mg, x1 tonight if melatonin doesn't work. #Solid renal mass, left side #Complex Renal Cyst Finding on Renal US, Complex cystic mass with vascularity in the mid left kidney 2.4 x 2.0 x 2.2 cm. Possibly related to his hypertensive emergency above, but unclear to what degree. MRI abdomen demonstrated Solid mass lateral margin left kidney, 24 x 20 mm. -Urology consulted Health Maintenance: DVT prophylaxis: SCDs Diet: NPO midnight Rosas: No Lines: PIV, Dialysis catheter CODE STATUS: Full code Disposition: Inpatient dialysis, BP control, biopsy. Patient's plan and care discussed with my attending, Dr. Duncan and my senior Dr. Tinajero. Kirill Mai DO PGY-1 ([facility] Resident) Attending Provider Attestation/Addendum Marlena Metz DO, attest that I was physically present for the young portions of the service and evaluated the patient with the resident and I reviewed and discussed the case with the resident and agree with the resident's findings and plans of care as documented above Patient seen and evaluated this Am. is at bedside. Patient complaining of pressure like pain radiating to his groin following right kidney biopsy. is able to help distract patient's pain and discomfort by massaging his feet. Abdomen is soft and nontender on palpation. No ecchymosis or swelling noted in right flank. Patient has received a chair time for HD outpatient. Will watch overnight due to concern for bleeding following renal biopsy. Patient asked questions regarding purpose of biopsy of healthy kidney versus kidney with mass. Explained to patient in lay men's terms that the greatest concern regarding concern for kidney mass would be malignancy. If the mass were malignant, a needle biopsy of the mass puts patient at risk of seeding the malignancy. He would need to f/u with a urologist outpatient for further workup and possible nephrectomy. Patient verbalized understanding and concern for the pain that would result from that procedure. I also explained to patient that the idea of biopsying the healthy kidney is to see if there is an underlying disease such as autoimmune disease that may lead to his kidney failure and need for HD. Patient also had several questions regarding methods of receiving HD via tunneled catheter versus AV fistula vs peritoneal catheter. He states that he has dogs at home that he fears may pull out any catheters he may have on his body. He is also concerned that it would limit his physical activity as he is very active prior to the hospitalization. I explained the various risks and benefits of the different modes of receiving dialysis and that he can further have this discussion with his assembly operator, with whom I discussed the case, in the outpatient setting so that he can make an informed decision. Patient and are aware that it will take about 1 week for the biopsy results to be made available and will need to f/u with nephrology for the results to further determine treatment plan. All questions and concerns were addressed to patient and 's satisfaction. Anticipate DC within next 24h if pt is hemodynamically stable and no signs of bleeding are noted. Patient was given dilaudid due to pain. Patient has been ambulating to the bathroom without issue. No focal neurological deficits noted on exam.
[2024-12-24] MEDS: HEPARIN SOD INJ 1000 UNIT/ML VIAL 10 ML 3500 UNIT INDWELLCAT (15:35)
[2024-12-24] MEDS: ATORVASTATIN CALCIUM 20 MG TABLET 40 MG PO (20:05)
--- NOTE | 2024-12-24 23:13 | ESPR_ITS ---
Documentation for date of: 12/24/24 Subjective Subjective Interval history: Patient was seen and examined today with his family at bedside. He underwent kidney biopsy today without any complications. Denies any new symptoms. Requesting a medication to help with sleep at night Exam - Neurology Vital Signs Temp Pulse Resp BP Pulse Ox O2 Del Method O2 Flow Rate 96.9 F 96 15 120/65 97 Room Air 2 12/24/24 20:00 12/24/24 20:00 12/24/24 20:00 12/24/24 20:00 12/24/24 20:00 12/24/24 20:00 12/24/24 10:23 Narrative Exam GENERAL APPEARANCE: Well hydrated, well-nourished in no acute distress. HEENT: Normocephalic, atraumatic, extraocular movements intact. Pupils: Equal reacting to light and accommodation NECK: Supple, no JVD or bruits. CARDIOVASULAR: Heart: S1, S2 heard, regular without S3-S4 or murmur no rubs or gallops. LUNGS/CHEST: Clear to auscultation bilaterally. No rails, rhonchi, or wheezing. Normal inspection. ABDOMEN: Soft, nontender, with normal bowel sounds. No pulsatile masses. No rebound, rigidity, or guarding. Normal inspection and palpation. EXTREMITIES: Normal inspection and palpation. No edema, clubbing or cyanosis. SKIN: Warm and dry without rashes. Normal inspection. MUSCULOSKELETAL: No cervical, thoracic, lumbar or midline bony tenderness. Normal inspection. NEURO: Alert, awake and oriented x3. Cranial nerves: II through XII grossly intact. Speech and language: Normal with no dysarthria or dysphasia. Motor system: Tone and bulk: Normal: Strength: 5 out of 5 in all 4 extremities; No pronator drift noted. Deep tendon reflexes: 2+ bilaterally symmetrical. Plantar reflex: Downgoing bilaterally. Sensory system: Intact to all modalities of sensation bilaterally. Coordination: Intact to nweulh-vlaa-pihyh and qlop-jkmr-dlzl test bilaterally. No ataxia, no dysmetria, or dysdiadochokinesia noted. No intention tremors noted. Gait: Normal. Toe, heel, tandem walk all are normal. Romberg: Negative. No signs of meningeal irritation noted. PSYCHIATRIC: Normal mood and affect. Objective Labs 12/24/24 04:35 12/24/24 04:35 Labs: Laboratory Results - last 24 hr 12/20/24 12/24/24 15:07 04:35 WBC 8.8 RBC 3.50 L Hgb 11.0 L Hct 32.4 L MCV 93 MCH 31.4 MCHC 34.0 RDW Std Deviation 40.6 Plt Count 215 Neut % (Auto) 55 Lymph % (Auto) 24 [place] % (Auto) 10 Eos % (Auto) 10 Baso % (Auto) 2 Neut # (Auto) 4.9 Lymph # (Auto) 2.1 [place] # (Auto) 0.9 H Eos # (Auto) 0.8 H Baso # (Auto) 0.1 Immature Gran # (Auto) 0.03 H Absolute Nucleated RBC 0.00 Immature Gran % 0 Nucleated RBC % 0 PT 10.7 INR 1.0 Sodium 142 Potassium 4.8 Chloride 104 Carbon Dioxide 23.4 Anion Gap 15 BUN 54 H Creatinine 7.8 H* D Estim Creat Clear Calc 19.1 L eGFR 9 L* BUN/Creatinine Ratio 7 L Glucose 97 Calculated Osmolality 297 H Calcium 9.5 Corrected Calcium 9.6 Total Bilirubin 0.2 L AST 23 ALT 22 Alkaline Phosphatase 45 L Total Protein 6.0 Albumin 3.9 Globulin 2.1 L Albumin/Globulin Ratio 1.9 Double Strand DNA Ab <1 Glomerular Base Memb Ab <1.0 Assessment & Plan Assessment and plan (1) Hypertensive emergency: Status: Resolved Assessment and plan: MRI did show a tiny acute infarction even though the patient does not have any focal neurological deficit. Patient will resume aspirin And Plavix tomorrow for 21 days followed by aspirin alone. Will add hydroxyzine 25 mg at bedtime to help with the sleep (2) Renal failure: Status: Acute Assessment and plan: On dialysis, but the biopsy done follow-up with the pathology report (3) Acute hyperkalemia: Status: Acute Assessment and plan: On dialysis
[2024-12-25] VITALS: BP 141/75; PULSE 89; PULSE 99; RESP 16; TEMP 36.3; O2SAT 98
[2024-12-25 03:18] LABS: Basophils # (Auto) 0.1 Thou/mm3 (0.0-0.2); Basophils % (Auto) 1 % (0-2.5); Eosinophils # (Auto) 0.6 Thou/mm3 (0.0-0.5); Eosinophils % (Auto) 7 % (0-10); Hematocrit 29.5 % (41.0-53.0); Hemoglobin 10.0 g/dL (13.5-16.0); Immature Granulocytes Auto 0.02 Thou/mm3 (0.00-0.00); Lymphocytes # (Auto) 2.0 Thou/mm3 (1.0-4.8); Lymphocytes % (Auto) 21 % (10-50); Mean Corpuscular HGB Conc 33.9 g/dl (31.0-37.0); Mean Corpuscular Hemoglobin 31.5 pg (25.0-35.0); Mean Corpuscular Volume 93 fL (80-100); Monocytes # (Auto) 1.0 Thou/mm3 (0.0-0.8); Monocytes % (Auto) 10 % (0-12); Neutrophils # (Auto) 5.7 Thou/mm3 (1.8-7.7); Neutrophils % (Auto) 61 % (37-80); Nucleated Red Blood Cell # 0.00 Thou/mm3 (0.00-0.00); Nucleated Red Blood Cell % 0 /100 WBC (0); Platelet Count 224 Thou/mm3 (140-440); RDW Standard Deviation 41.4 fL (35.1-43.9); Red Blood Count 3.17 Miln/mm3 (4.50-5.90); White Blood Count 9.4 Thou/mm3 (3.8-10.6)
[2024-12-25 03:36] LABS: Alanine Aminotransferase 21 U/L (10-49); Albumin, Serum 3.8 gm/dL (3.5-5.0); Albumin/Globulin Ratio 1.9 (1.2-2.2); Alkaline Phosphatase 47 U/L (46-116); Anion Gap 9 (7-16); Aspartate Amino Transferase 23 U/L (0-34); BUN/Creatinine Ratio 7 Ratio (12-20); Bilirubin,Total 0.2 mg/dL (0.3-1.2); Blood Urea Nitrogen 42 mg/dL (9-23); Calcium 8.8 mg/dL (8.3-10.6); Calcium (Corrected) 9.0 mg/dL (8.5-10.1); Carbon Dioxide 27.0 mMol/L (20.0-31.0); Chloride 103 mMol/L (98-107); Creatinine (Component) 6.2 mg/dL (0.6-1.3); Estimated Creatinine Clearance 24.0 mL/min (>60); Globulin 2.0 gm/dL (2.3-3.5); Glucose 96 mg/dL (74-106); Magnesium 2.1 mg/dL (1.6-2.6); Osmolality,Calculated 288 (275-295); Potassium 4.3 mMol/L (3.4-5.1); Sodium 139 mMol/L (136-145); Total Protein 5.8 gm/dL (5.7-8.2); eGFR 11 See Note
[2024-12-25 04:00] VITALS: BP 127/88; PULSE 100; PULSE 97; RESP 13; TEMP 36.1; O2SAT 97
[2024-12-25 08:00] VITALS: BP 134/96; PULSE 97; PULSE 98; RESP 18; TEMP 36.1; O2SAT 95
[2024-12-25 08:18] VITALS: BP 134/96; PULSE 96
[2024-12-25 08:19] VITALS: BP 134/96; PULSE 97
[2024-12-25] MEDS: NIFEdipine XL 30 MG TABCR 60 MG PO (08:19)
--- NOTE | 2024-12-25 09:41 | PD.NEPHPROG ---
Documentation for date of: 12/25/24 Subjective Subjective Interval history: 34 yr male PMH of htn on lisinopril and prior heavy alcohol use now sober, who presents to the ED with blurred vision, clamminess, slurred speech and nausea without vomiting. This started as blurred vision two weeks ago. Started experiencing symptoms on his way to work. Labs showed hyperkalemia 6.3, Cr 8.7, GFR 8. CT head and CTA neck were negative. Renal US was negative for hydronephrosis but noted a complex cystic structure on the left kidney with cortical thinning. BP 201/127, Nephrology is consulted for renal failure and hyperkalemia. Patient is a seen and examined. Patient had a tunneled hemodialysis today. Patient is aware this seen a lot of family members including his mom. Patient looks very upset about the situation. Patient has a lot of question about renal failure. Explained in detail to him and to his family. Patient denies any nausea. Denies any vomiting. Denies any shortness of breath. Patient is tolerating dialysis well. 12/25/2024 patient currently seen in medical floor. Entire family at bedside. He will be discharged today. Had a kidney biopsy at dialysis yesterday. Outpatient dialysis at [facility] arranged. Family had several questions which were answered to their satisfaction. Review of Systems Review of Systems Narrative Review of Systems: CONSTITUTIONAL: Patient denies any fever, chills. HEENT: Denies any visual disturbances or hearing problems. CARDIOVASCULAR: Patient denies any chest pain, shortness of breath, swelling in the lower extremities. PULMONARY: Patient denies any shortness of breath, cough. GASTROINTESTINAL: Patient denies any abdominal pain, constipation, nausea, vomiting, diarrhea. GENITOURINARY: Patient denies any urinary symptoms of burning or frequency or hematuria, denies any form in the urine. SKIN: Denies any rash. MUSCULOSKELETAL: Denies any muscular skeletal problems of joint pains. NEUROLOGICAL: Denies any neurological problems of strokes, seizures or confusion. Denies any memory problems. PSYCHIATRIC: Denies any depression or anxiety. LYMPHATICS : No lymphadenopathy Exam Vital Signs Temp Pulse Resp BP Pulse Ox O2 Del Method O2 Flow Rate 35.7 C L 88 16 133/93 H 95 Room Air 2 12/25/24 12:00 12/25/24 12:00 12/25/24 12:00 12/25/24 12:00 12/25/24 12:00 12/25/24 12:00 12/24/24 10:23 Narrative Exam GENERAL APPEARANCE: Patient seems to be comfortable, adequately hydrated and nourished. HEENT: EOMI, PERRLA NECK: Neck supple, no JVD or bruit CARDIOVASCULAR: Heart regular, no murmurs LUNGS/CHEST: Chest clear to auscultation. No rales, rhonchi, wheezing ABDOMEN: Soft, nontender, nondistended. No masses. Normal bowel sounds. EXTREMITIES: No edema, clubbing or cyanosis. SKIN: Skin exam normal without any rashes Right IJ dialysis catheter MUSCULOSKELETAL: Musculoskeletal exam normal PSYCHIATRIC: Normal mood, affect LYMPHATICS: No lymphadenopathy noted NEUROLOGICAL : No neurological deficits Objective Labs 12/25/24 02:55 12/25/24 02:55 Labs: Laboratory Results - last 24 hr 12/25/24 02:55 WBC 9.4 RBC 3.17 L Hgb 10.0 L Hct 29.5 L MCV 93 MCH 31.5 MCHC 33.9 RDW Std Deviation 41.4 Plt Count 224 Neut % (Auto) 61 Lymph % (Auto) 21 [place] % (Auto) 10 Eos % (Auto) 7 Baso % (Auto) 1 Neut # (Auto) 5.7 Lymph # (Auto) 2.0 [place] # (Auto) 1.0 H Eos # (Auto) 0.6 H Baso # (Auto) 0.1 Immature Gran # (Auto) 0.02 H Absolute Nucleated RBC 0.00 Immature Gran % 0 Nucleated RBC % 0 Sodium 139 Potassium 4.3 D Chloride 103 Carbon Dioxide 27.0 Anion Gap 9 BUN 42 H Creatinine 6.2 H* D Estim Creat Clear Calc 24.0 L eGFR 11 L* BUN/Creatinine Ratio 7 L Glucose 96 Calculated Osmolality 288 Calcium 8.8 Corrected Calcium 9.0 Magnesium 2.1 Total Bilirubin 0.2 L AST 23 ALT 21 Alkaline Phosphatase 47 Total Protein 5.8 Albumin 3.8 Globulin 2.0 L Albumin/Globulin Ratio 1.9 Assessment & Plan Assessment and plan (1) Hypertensive emergency: Status: Resolved (2) Renal failure: Status: Acute (3) Acute hyperkalemia: Status: Acute Additional Assessment & Plan Additional Plan: Patient currently seen in telemetry. Family at bedside. Patient admitted with ASHLEE. Not sure his baseline creatinine was. No labs for more than 3 years. Had a long conversation with , patient, mom, dad, friends around the bedside. Patient started having uncontrolled blood pressures for the last 3 months. Not feeling well. In the ED noted to have GFR of 9 and a potassium of 6.3. Patient was started on dialysis. Did receive 3 dialysis sessions under the care of Dr. Diaz. Family requested switching tribal council member as his is my patient. During workup he was noted to have tiny stroke Secondary to uncontrolled hypertension. Was started on aspirin and Plavix by Dr. Tinajero. Held this morning for need for biopsy. Patient urinalysis noted to have 3+ protein. Urine protein/creatinine nephrotic range proteinuria. Young person with ASHLEE-not sure if her blood pressure is a result or the cause of worsening renal function. Decided to proceed with biopsy to rule out other glomerular diseases such as FSGS. Patient agreed for biopsy. Spoke to Dr. Tamez-will do medical renal biopsy today. for the right kidney. Spoke to Dr. Tinajero agreed to hold Plavix for 1 day. Renal replacement therapy options including Hemodialysis, peritoneal dialysis and renal transplant options given to patient. For now he wants to continue with hemodialysis. Incidentally found 2 cm left renal mass-spoke to Dr Dickens-will see patient today. Probably needs workup as an outpatient. Time spent more than 35 minutes regarding plan of care and disease management. Patient has outpatient dialysis arranged at [facility]. Can be discharged today on blood pressure medications, statins, aspirin and Plavix. She is going to follow-up with me in 1 to 2 weeks For biopsy results.
--- NOTE | 2024-12-25 10:10 | PD.RESPRO ---
Documentation for date of: 12/25/24 Exam Vital Signs Temp Pulse Resp BP Pulse Ox O2 Del Method O2 Flow Rate 96.9 F 97 18 134/96 H 95 Room Air 2 12/25/24 08:00 12/25/24 08:19 12/25/24 08:00 12/25/24 08:19 12/25/24 08:00 12/25/24 08:00 12/24/24 10:23 Objective Labs 12/25/24 02:55 12/25/24 02:55 Labs: Laboratory Results - last 24 hr 12/25/24 02:55 WBC 9.4 RBC 3.17 L Hgb 10.0 L Hct 29.5 L MCV 93 MCH 31.5 MCHC 33.9 RDW Std Deviation 41.4 Plt Count 224 Neut % (Auto) 61 Lymph % (Auto) 21 Sherman % (Auto) 10 Eos % (Auto) 7 Baso % (Auto) 1 Neut # (Auto) 5.7 Lymph # (Auto) 2.0 Sherman # (Auto) 1.0 H Eos # (Auto) 0.6 H Baso # (Auto) 0.1 Immature Gran # (Auto) 0.02 H Absolute Nucleated RBC 0.00 Immature Gran % 0 Nucleated RBC % 0 Sodium 139 Potassium 4.3 D Chloride 103 Carbon Dioxide 27.0 Anion Gap 9 BUN 42 H Creatinine 6.2 H* D Estim Creat Clear Calc 24.0 L eGFR 11 L* BUN/Creatinine Ratio 7 L Glucose 96 Calculated Osmolality 288 Calcium 8.8 Corrected Calcium 9.0 Magnesium 2.1 Total Bilirubin 0.2 L AST 23 ALT 21 Alkaline Phosphatase 47 Total Protein 5.8 Albumin 3.8 Globulin 2.0 L Albumin/Globulin Ratio 1.9 Quality Measures Quality Measures stroke Suspected type of Stroke: Acute Ischemic Tenecteplase given: Reason(s) Tenecteplase not given: Uncontrolled BP not given Assessment & Plan Assessment Current Active Medications: Generic Name Dose Route Start Last Admin Trade Name Freq PRN Reason Stop Dose Admin Acetaminophen 650 mg 12/20/24 14:40 Acetaminophen 325 Mg Tablet PO 01/19/25 14:39 Q6H PRN Fever >100.1 or pain Aspirin 81 mg 12/20/24 15:45 12/22/24 12:01 Aspirin Ec 81 Mg Tabec PO 01/19/25 15:44 81 mg On Hold: 12/22/24 18:32 DAILY SHEYLA Administration Atorvastatin Calcium 40 mg 12/22/24 21:00 12/24/24 20:05 Atorvastatin Calcium 20 Mg Tablet PO 01/21/25 20:59 40 mg HS SHEYLA Administration Carvedilol 6.25 mg 12/22/24 17:30 12/25/24 08:18 Carvedilol 3.125 Mg Tablet PO 01/21/25 17:29 6.25 mg BIDWM SHEYLA Administration Clopidogrel Bisulfate 75 mg 12/22/24 13:45 12/22/24 14:34 Clopidogrel Bisulfate 75 Mg Tablet PO 01/21/25 13:44 75 mg On Hold: 12/22/24 18:32 QDAY SHEYLA Administration Heparin Sodium (Porcine) 3,500 unit 12/20/24 21:40 12/24/24 15:35 Heparin Sod Inj 1000 Unit/Ml Vial 10 Ml INDWELLCAT 01/03/25 21:39 3,500 unit PRN PRN Administration DIALYSIS Hydroxyzine HCl 25 mg 12/24/24 18:04 Hydroxyzine Hcl 25 Mg Tablet PO 01/23/25 20:59 HS PRN sleep Albumin Human 25 gm in 100 mls @ 100 mls/min 12/20/24 14:52 Albuminar-25 Ivpb IV PRN PRN DIALYSIS Labetalol HCl 10 mg 12/21/24 06:25 12/22/24 00:27 Labetalol Inj 5 Mg/Ml Vial 20 Ml IVP 01/20/25 06:24 10 mg X1 PRN Administration SBP > 170, DBP >100 Nifedipine 60 mg 12/23/24 15:30 12/25/24 08:19 Nifedipine Xl 30 Mg Tabcr PO 01/22/25 15:29 60 mg QDAY SHEYLA Administration Ondansetron HCl 4 mg 12/20/24 14:40 12/20/24 16:18 Ondansetron Inj 2 Mg/Ml Inj 2 Ml IVP 01/19/25 14:39 4 mg Q6H PRN Administration NAUSEA OR VOMITING Protocol Sennosides 1 tab 12/20/24 14:40 Senna Tablet PO 01/19/25 14:39 QDAY PRN constipation Protocol Sodium Chloride 3 ml 12/21/24 07:24 Sodium Chloride Rt La 0.9% 3 Ml Nebu INH 01/20/25 07:23 PRN PRN SOLN
--- NOTE | 2024-12-25 10:28 | ESDS_ITS ---
<Statement entered by Marlena Duncan DO - 12/27/24 08:14> I, Marlena Duncan DO, attest that I was physically present for the young portions of the service and evaluated the patient with the resident and I reviewed and discussed the case with the resident and agree with the resident's findings and plans of care as documented above Patient seen and evaluated this AM. He reports feeling well and resolution of flank pain from site of biopsy. No ecchymosis or bleeding noted from biopsy site. Dressing is clean, dry and intact. BP improved. Case discussed with nephrology, will add valsartan 80mg PO qday due to proteinuria, in addition to nifedipine and coreg. Patient is stable for discharge. All questions and concerns were addressed to patient and 's satisfaction. <Statement entered by Kayli Tinajero MD - 12/27/24 07:49> I discussed with and supervised the international freight forwarder physician who took care of this patient. I personally saw and examined the patient and discussed the assessment and plan with the entire medicine team, including my attending Dr. Duncan, I agree with most of the assessment and plan as documented below Kayli Tinajero M.D. PGY-3 Planned Discharge Date 12/25/24 DS: Providers Provider Date of admission: 12/20/24 14:57 Primary care physician: Patrick Lewis MD Admitting Provider: Cornelius Grady MD Attending Provider on Admission: Marlena Duncan DO Consults: 12/20/24 10:05 Consult to Neurology / Tele-Neurology Routine Comment: Consulting Provider: [facility] 12/20/24 14:10 Consult to Nephrology Stat Comment: Consulting Provider: Celestino Diaz 12/20/24 17:28 Referral Physical Therapy Routine Comment: Physician Instructions: 12/22/24 08:00 Consult to Neurology / Tele-Neurology Routine Comment: Consulting Provider: Jamin Tinajero 12/23/24 13:25 Consult to Nephrology Routine Comment: Hypertensive emergency, severe ASHLEE, Dialysis Consulting Provider: Adeola Corbin 12/23/24 14:00 Referral Discharge Planning Routine Comment: Outpatient dialysis unit- [facility] 12/23/24 15:30 Consult to Urology Routine Comment: Solid renal mass, right side Consulting Provider: Maria A Dickens Attending Provider on DC: Marlena Duncan DO Discharging Provider: Marlena Duncan DO DS: Diagnosis Problem List Completed Was Problem List Reviewed/Reconciled?: Yes Hospital Course Hospital Course Hospital course: 34 yom with a h/o htn on lisinopril who presents to the ED on 12/20/2024 with blurred vision, clamminess, and weakness, found to be hypertensive with systolics at the 200s, sever ASHLEE admitted for emergent dialysis and hypertensive emergency. CT head and CTA were negative for stroke, but MRI brain on subsequent day demonstrated periventricular white matter changes consistent with high blood pressure and acute stroke in left basal ganglia. Neurology consulted in the ED for stroke workup, recommended aspirin, plavix 21 days, and atorvastatin. Initial work up in the ED included a CLARICE which showed bilateral cortical thinning and a left complex renal cyst. MRI Abdomen was done for futher characterization and demonstrated a solid mass lateral margin left kidney, 24 x 20 mm. Urology was consulted for further recommendations. Random urine protein was positive for nephrotic range proteinuria. On 12/25, patient received a right renal biopsy for work up of possible nephrotic syndrome. On 12/25, patient's blood pressure was stable but still mildly elevated on nifedipine 60 mg and coreg 6.25mg BID. Outpatient dialysis was secured for the patient. Patient remained stable without any residual deficit from the stroke, and was medically cleared. He was subsequently discharged in stable condition. He was still pending ANCAs, Complement, and anti-PR3/MPO labs. Anti-GBM was negative as was ant DS DNA. Recommendations You were found to have a stroke during this admission. Continue taking atorvastatin 40mg daily as management of stroke. You were started on aspirin 81mg daily and Plavix 75mg daily for stroke prevention. Resume these agents on Tuesday 12/26. You will need to take Plavix for 21 days (starting from 12/26). Continue aspirin and atorvastatin indefinitely. They were held for two days to decrease your risk of bleeding after your kidney biopsy. Continue taking lisinopril 20mg daily for blood pressure control. Repeat echocardiogram in another 3 months to assess for any acute changes in heart function. Continue taking Coreg and nifedipine as management for high blood pressure. Continue outpatient dialysis as setup by your building engineer. Review biopsy results with building engineer. Follow up with you PCP in 1-2 weeks. Follow up with neurologist in 1-2 weeks. Discharge Diagnoses #Acute renal injury requiring dialysis #Hypertensive Emergency-resovled #Hyperkalemia-resolved #Uremia-resolved #Acute ischemic stroke #Anxiety #Difficulty sleeping #Solid renal mass, left side #Complex Renal Cyst Patient's plan and care discussed with my attending, Dr Duncan and my senior, Dr Tinajero. Kirill Mai, PGY-1 ([facility] Resident) Time Spent with Patient Time attestation: Total time spent providing and/or coordinating discharge services: Time spent: Greater than 30 minutes Exam Vital Signs Temp Pulse Resp BP Pulse Ox O2 Del Method O2 Flow Rate 96.9 F 97 18 134/96 H 95 Room Air 2 12/25/24 08:00 12/25/24 08:19 12/25/24 08:00 12/25/24 08:19 12/25/24 08:00 12/25/24 08:00 12/24/24 10:23 Narrative Exam General: Patient sitting up in bed, conversational, no acute distress. HEENT: Mucosa moist, no oropharyngeal lesions. Dialysis catheter in place in the right side of the neck. Pupils are equal and reactive to light bilaterally, no scleral icterus or injection. No periorbital edema. Cardiovascular: regular rate and rhythm, Respiratory: Clear to auscultation bilaterally without wheezes or crackles. Abdomen: Soft, nontender, not distended, Skin: rosangela cheeks with telangiectasias, no petechiae or purpura noted. Musculoskeletal: No gross injuries. Able to move all 4 extremities. Non edematous lower extremities. Neuro: Alert and oriented x3. No focal neuro deficits, ambulates without gait impairment. Discharge Plan Plan Patient Disposition: HOME (Self Care) Patient condition on transfer: Stable Prescriptions/Referrals Prescriptions/Med Rec: New aspirin 81 mg capsule 81 mg PO QDAY 30 Days Qty: 30 0RF atorvastatin 20 mg Tablet 40 mg PO HS 30 Days Qty: 60 0RF carvedilol 3.125 mg Tablet 6.25 mg PO BIDWM 30 Days Qty: 60 0RF clopidogrel 75 mg tablet 75 mg PO QDAY Qty: 30 0RF Rx Instructions: Resume taking on 12/26 valsartan 80 mg tablet 80 mg PO QDAY Qty: 30 0RF nifedipine 60 mg tablet extended release 24hr 60 mg PO QDAY Qty: 30 0RF Continued prednisolone acetate 1 % drops,suspension 1 drp OPHTHALMIC (EYE) QID Rx Instructions: started 12/16/24 because having blurry vision. Prescribed by eye doctor. albuterol sulfate 90 mcg/actuation HFA aerosol inhaler 2 inh INHALATION Q4H PRN (Reason: shortness of breath or wheezing) Patient Comments: INHALE 2 TO 4 PUFFS BY MOUTH EVERY 4 TO 6 HOURS NEEDED Rx Instructions: has not needed recently. Discontinued lisinopril 20 mg tablet 20 mg PO DAILY Patient Comments: TAKE 1 TABLET BY MOUTH DAILY Referrals: Patrick Lewis MD [Primary Care Provider, Family Practice] Jamin Tinajero MD [Physician, Neurology] Adeola Corbin MD [Physician, Nephrology] Patient/Caregiver Discharge Instructions Other Discharge Activity Instructions:: You were found to have a stroke during this admission. Continue taking atorvastatin 40mg daily as management of stroke. You were started on aspirin 81mg daily and Plavix 75mg daily for stroke prevention. Resume these agents on Tuesday 12/26. You will need to take Plavix for 21 days (starting from 12/26). Continue aspirin and atorvastatin indefinitely. They were held for two days to decrease your risk of bleeding after your kidney biopsy. Continue taking lisinopril 20mg daily for blood pressure control. Repeat echocardiogram in another 3 months to assess for any acute changes in heart function. Continue taking Coreg and nifedipine as management for high blood pressure. Continue outpatient dialysis as setup by your building engineer. Review biopsy results with building engineer. Follow up with you PCP in 1-2 weeks. Follow up with neurologist in 1-2 weeks. Education Materials: Hemodialysis, Stroke Prevention Activity Print Language: Latvian Stand Alone Forms: Amina Award Info., Patient Portal Info Letter Discharge Order Discharge Orders: Discharge (Routine); Ordered 12/25/24 Ordered By: Marlena Duncan Quality Discharge Quality Measures VTE prophylaxis
[2024-12-25 12:00] VITALS: BP 133/93; PULSE 88; PULSE 96; RESP 16; TEMP 35.7; O2SAT 95
[2024-12-27 07:16] LABS: ANA Screen, IFA NEGATIVE (NEGATIVE); ANCA Screen NEGATIVE (NEGATIVE); Myeloperoxidase Ab <1.0 AI (<1.0); Proteinase-3 Ab <1.0 AI (<1.0)
--- NOTE | 2024-12-27 09:00 | UCCONSULT_ITS ---
RE: MEGHNA RIVAS : 1990 DATE OF CONSULTATION: 12/24/2024 CHIEF COMPLAINT: 1. A 2 cm solid mass left kidney on MRI of the abdomen. 2. BPH. 3. ASHLEE. Hypertensive emergency. The patient is on dialysis. HISTORY OF PRESENT ILLNESS: This is a 34-year-old gentleman. This patient has history of hypertension and he is on lisinopril. The patient has no history of gross hematuria, dysuria, urinary tract infection. He has no loss of weight or appetite. The patient has history of prior heavy alcohol use, now sober. He came to the emergency room with a blurred vision, clamminess, and nausea without vomiting. He had a blurred vision 2 weeks ago and he has been taking some horrible medication. The patient has been taking Motrin 800 mg for many years. 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 That is the reason he has been taking Motrin. In the emergency room, he denied fever, headache, URI or GI illness, chest pain, shortness of breath or hemoptysis or abdominal pain. There is no family history of autoimmune disorder and kidney disease. He had seen an porter head who felt he has a bilateral macular edema of unclear etiology and he has been referred to a retinal specialist. PAST MEDICAL HISTORY: Hypertension. PAST SURGICAL HISTORY: Status post hernia repair. MEDICINES: Lisinopril, OTC ibuprofen, naproxen. He was taking this for 8-10 years for pain. ALLERGIES: PATIENT IS ALLERGIC TO PENICILLIN. In the emergency room, his blood pressure was 201/127, heart rate was 106, temperature 98, respirations 18, O2 saturation 98% at room temperature. VARIOUS LABS: WBC is 11.1, hemoglobin is 11.8, BUN is 81, creatinine is 8.7, GFR is 8. The patient has been seen by Dr. Corbin and he is started on dialysis. He has MRI of the abdomen and it is reviewed by me. There is a 2 cm to 2.5 cm mass left kidney. NARRATIVE EXAMINATION: General: The patient is lying in the bed. He is receiving dialysis. HEENT: Normocephalic and atraumatic. Orientation x3. Neck: Supple. Trachea is central. Thyroid is not enlarged. Extremities: Reveal no edema, cyanosis, or clubbing. Vital signs: Stable. They are in HPI in EMR. Chest: Symmetrical. Heart: Regular rate and rhythm. Abdomen: Soft, obese. No masses. Liver, spleen, kidney not palpable. IMPRESSION: 1. A 2 cm to 2.5 cm mass, left kidney. 2. Acute kidney injury, hyperkalemia, uremia. The patient is on dialysis. Discussed in detail various T/t options including WW, cryo, RFA, open vs. laparoscopic vs. robotic partial nephrectomy and potential complications, including, but not limited to open surgery conversion, radical nephrectomy, dialysis, bleeding, urine leak, injury to surrounding structures (bowel, liver, spleen, pancreas, big blood vessels, diaphragm, other abdominal organs), [place], CVA, DVT, PE, neuro-muscular sequelae, positioning injuries, cardio-pulmonary complications, even . Discussed potential need for ICU care, re-exploration, and/or radiologic interventions such as angio-embolization, percutaneous nephrostomy, JJ stenting, percutaneous drainage of urinoma. Discussed that it is possible this mass may not even be malignant. Discussed possibility of positive margin. Discussed that intra-operative frozen section may or may not be performed depending upon visual impression of the surgical team concerning margin status. Discussed that surgery may be televised during a course and patient verbalized understanding. Discussed that this is a teaching institution and residents may be involved in various aspects of the case. Discussed that there may be visiting urologists in the OR to observe the procedure. Patient verbalized understanding and agreed to proceed. This visit was primarily for counseling and co-ordination of care. Patient verbalized understanding and elected to proceed with the plan outlined below. Due to the complex nature and risks associated with this type of surgery and potential complications which include, but not limited to, post-operative bleeding and urinary leakage, this will require an in-patient status for close patient surveillance and immediate post-operative intervention if/when indicated. . I have made his appointment with Dr. Schulz for consultation and recommendation answered all his questions to his satisfaction. He verbalized understanding. DT: 16:08:16 TT: 16:58:00 Ref: [id number] - TID: [id number] MTDD
[2024-12-29 07:10] LABS: Complement Component C3* 130 mg/dL (82-185); Complement Component C4c* 21 mg/dL (15-53)
== END 2024-12-25 13:00 | disposition home or self-care (01) | DRG 674 ==
LOC: SERX 14:41 → SERHOLD 14:59 → S2NX 19:27
PROVIDERS: Internal Medicine; Admitting Provider Internal Medicine; Emergency Provider Emergency Medicine; PCP Family Medicine; Visit Provider Internal Medicine
DX: N17.9 Acute kidney failure, unspecified (principal); I16.1 Hypertensive emergency; I10 Essential (primary) hypertension; R47.81 Slurred speech; E87.5 Hyperkalemia; N28.1 Cyst of kidney, acquired; H35.81 Retinal edema; F41.9 Anxiety disorder, unspecified; Z79.02 Long term (current) use of antithrombotics/antiplatelets; Z79.82 Long term (current) use of aspirin; Z79.899 Other long term (current) drug therapy; Z86.73 Personal history of transient ischemic attack (TIA), and cerebral infarction without residual deficits; Z87.891 Personal history of nicotine dependence; N40.0 Benign prostatic hyperplasia without lower urinary tract symptoms; K59.00 Constipation, unspecified; N28.89 Other specified disorders of kidney and ureter; Z88.0 Allergy status to penicillin
CPT/HCPCS: 36415; 70450; 70496; 70498; 70551; 71045; 74181; 76770; 76937; 77001; 77012; 80048; 80053; 80061; 80069; 80074; 80307; 81001; 82570; 83520; 83735; 84100; 84156; 84300; 84484; 85025; 85610; 85730; 86021; 86036; 86038; 86160; 86225; 86580; 86706; 87081; 93005; 93306; 94640; 94762; 96361; 96365; 96366; 96375; 97161; 99285; A4649; C1894; J0612; J0613; J1171; J1642; J1643; J1815; J2404; J2405; J3010; J3475; J3490; J7050; J7120; Q9967; A9270; J1920